=== PATIENT | female | born 1975 | race Caucasian/White ===

== ENCOUNTER → 2019-06-16 09:16 | Outpatient (BNVA) | payer BC, SELFPAY | PROVIDERS: Family Provider Family Medicine; PCP Family Medicine; Visit Provider Orthopaedic Surgery | DX: M85.88 Other specified disorders of bone density and structure, other site (principal) | CPT/HCPCS: 73560; 73565 ==

== ENCOUNTER 2019-07-12 13:18 | Outpatient (CLI) | payer BC, SELFPAY ==
--- NOTE | 2019-07-12 14:00 | MM_ITS ---
WS: [id number] SCREENING DIGITAL MAMMOGRAM WITH CAD HISTORY: screening mammogram COMPARISON: 07/07/2012 Bilateral CC and MLO views submitted. Computer aided detection analyzed. Breast composition: There are scattered areas of fibroglandular density. No suspicious masses, microc alcifications or architectural distortion. MM/[place] [id number] IMPRESSION: BI-RADS: 1-Negative FOLLOW UP: 1 Year Follow-up
== END 2019-07-12 13:19 | disposition home or self-care (01) ==
LOC: RADSHAW 13:21
PROVIDERS: Family Provider Family Medicine; PCP Family Medicine; Visit Provider Family Medicine
DX: Z12.31 Encounter for screening mammogram for malignant neoplasm of breast (principal)
CPT/HCPCS: 77067

== ENCOUNTER 2019-08-03 09:35 | Outpatient (CLI) | payer BC, SELFPAY ==
--- NOTE | 2019-08-03 09:44 | XR_ITS ---
WS: [id number] Lumbar spine, 3 views, 08/03/2019 Clinical Data: low back pain Comparison: Lumbar spine, 08/21/2015. Findings: No compression fractures or subluxation is seen. No disc space narrowing is seen. The transverse proc esses and SI joints are normal. Fallopian tube closure devices are present. There is minimal osteoarthritis and spurring of the anter ior superior margins of L4 and L5 vertebral bodies. XR/XR lumbar spine 2-3V* [id number] Impression: Minimal osteoarthritis of L4 and L5.
== END 2019-08-03 09:36 | disposition home or self-care (01) ==
LOC: RAD 09:38
PROVIDERS: Family Provider Family Medicine; PCP Family Medicine; Visit Provider Family Medicine
DX: M54.42 Lumbago with sciatica, left side (principal); M54.41 Lumbago with sciatica, right side; M47.896 Other spondylosis, lumbar region
CPT/HCPCS: 72100

== ENCOUNTER 2019-08-16 15:44 | Outpatient (RCR) | payer BC, SELFPAY | END 2019-08-24 23:59 | disposition home or self-care (01) | LOC: SPT 15:44 | PROVIDERS: Family Provider Family Medicine; PCP Family Medicine; Referring Provider Family Medicine; Visit Provider Family Medicine | DX: M54.42 Lumbago with sciatica, left side (principal); M54.41 Lumbago with sciatica, right side | CPT/HCPCS: 97110; 97161 ==

== ENCOUNTER 2019-08-25 06:00 | Outpatient (RCR) | payer BC, SELFPAY | END 2019-09-23 23:59 | disposition home or self-care (01) | LOC: SPT 06:00 | PROVIDERS: Family Provider Family Medicine; PCP Family Medicine; Referring Provider Family Medicine; Visit Provider Family Medicine | DX: M54.42 Lumbago with sciatica, left side (principal); M54.41 Lumbago with sciatica, right side | CPT/HCPCS: 97110; G0283 ==

== ENCOUNTER → 2019-10-21 08:27 | Outpatient (BNVA) | payer BC, SELFPAY | PROVIDERS: Family Provider Family Medicine; PCP Family Medicine; Visit Provider Family Medicine | DX: I10 Essential (primary) hypertension (principal); M54.42 Lumbago with sciatica, left side; M54.41 Lumbago with sciatica, right side; G25.81 Restless legs syndrome; F17.219 Nicotine dependence, cigarettes, with unspecified nicotine-induced disorders | CPT/HCPCS: 80053; 80061; 82044; 85025 ==

== ENCOUNTER → 2019-10-22 12:36 | Outpatient (BNVA) | payer BC, SELFPAY | PROVIDERS: Family Provider Family Medicine; PCP Family Medicine; Visit Provider Family Medicine | DX: I10 Essential (primary) hypertension (principal); M54.42 Lumbago with sciatica, left side; M54.41 Lumbago with sciatica, right side; G25.81 Restless legs syndrome; F17.219 Nicotine dependence, cigarettes, with unspecified nicotine-induced disorders; R73.09 Other abnormal glucose | CPT/HCPCS: 83036 ==

== ENCOUNTER 2019-11-07 22:35 | Emergency (ER) | payer BC, SELFPAY ==
[2019-11-07 22:58] VITALS: BP 130/78; PULSE 90; RESP 18; TEMP 35.8; O2SAT 97; BMI 45.4
[2019-11-07 23:41] LABS: Basophils # 0.1 10^3/uL (0.0-0.1); Basophils % 0.6 %; Eosinophils # 0.1 10^3/uL (0.0-0.8); Eosinophils % 1.1 %; Hematocrit 41.3 % (37.0-47.0); Hemoglobin 13.6 g/dL (11.5-15.3); Lymphocytes # 2.4 10^3/uL (0.8-4.8); Lymphocytes % 22.4 %; Mean Corpuscular HGB Conc 32.9 g/dL (30.0-36.0); Mean Corpuscular Hemoglobin 31.9 pg (28.0-34.0); Mean Corpuscular Volume 96.7 fL (81-99); Mean Platelet Volume 8.8 fL (7.4-10.4); Monocytes # 0.7 10^3/uL (0.2-0.9); Neutrophils # 7.5 10^3/uL (1.8-7.7); Neutrophils % 69.4 %; Nucleated Red Blood Cells % 0 %; Platelet Count 329 10^3/cmm (130-400); Red Blood Count 4.27 10^6/uL (4.1-5.3); Red Cell Distribution Width 12.6 % (12.1-15.1); White Blood Count 10.8 10^3/uL (4.0-10.0)
--- NOTE | 2019-11-07 23:55 | PC.NURSE ---
urine collected and sent to lab
[2019-11-07 23:58] LABS: Alanine Aminotransferase 20 U/L (0-33); Albumin Level 3.7 g/dL (3.5-5.2); Alkaline Phosphatase 79 IU/L (35-105); Anion Gap 14.8 (5-19); Aspartate Amino Transferase 16 U/L (0-32); Blood Urea Nitrogen 8 mg/dL (6-20); Calcium 9.1 mg/dL (8.5-10.5); Carbon Dioxide 23 mmol/L (22-29); Chloride 104 mmol/L (98-107); Globulin 3.2 g/dL (1.3-4.6); Glomerular Filtration Rate 78.7 mL/min (90-130); Glucose 109 mg/dL (65-115); Lipase 56 U/L (13-60); Osmolality Calculated 282 mOsm/kg (285-295); Potassium 3.8 mmol/L (3.5-5.1); Sodium 138 mmol/L (136-145); Total Bilirubin 0.2 mg/dL (0.15-1.2); Total Protein 6.9 g/dL (6.6-8.7)
--- NOTE | 2019-11-07 23:58 | W.ED.NAVMDI ---
HPI - Nausea/Vomiting/Diarrhea General: Chief complaint: Nausea/Vomiting/Diarrhea Stated complaint: sore throat/ n/v/d Time Seen by Provider: 11/07/19 23:19 History of Present Illness: HPI Narrative: Patient comes in with a 2-day history of of diarrhea with one episode of vomiting today. Patient appears mildly unwell. Patient appears in no acute distress. Vital signs are normal. Patient denies any blood in the stool or vomit. Associated nausea: Yes Associated symtoms: Reports nausea Review of Systems General: Reports: 10 or more systems reviewed and unremarkable except in HPI and below GI: Reports: nausea, vomiting and diarrhea [facility] [place] ED PFSH: Medical History (Updated 11/08/19 @ 00:21 by NICOLE Martínez) Acquired hypothyroidism Essential (primary) hypertension GERD (gastroesophageal reflux disease) Menopausal syndrome (hot flashes) Migraine without aura and with status migrainosus, not intractable Nicotine dependence, cigarettes, with unspecified nicotine-induced disorders Seizure disorder Surgical History H/O section H/O knee surgery History of placement of ear tubes Family History Father Diabetes Hypertension CAD (coronary artery disease) Grandfather CAD (coronary artery disease) Social History Smoking and tobacco status: current every day smoker cigarettes Packs smoked per day: 0.5 Alcohol intake: former Physical Exam Const: COMMON NORMALS: no acute distress and patient oriented x3 GENERAL APPEARANCE: cooperative HENMT: COMMON NORMALS: normocephalic and Normal external nose present HEAD & SCALP: normal to inspection and normocephalic NOSE: Normal external nose present MOUTH: Normal oral and palatal mucosa present THROAT: posterior oropharynx normal Eye: GENERAL EYE: appearance normal, both eyes and all related structures Neck/C-Spine: COMMON NORMALS: full ROM Lymph: LYMPHATIC: no lymphadenopathy noted Chest: COMMONS NORMALS: normal inspection of the chest Resp: COMMON NORMALS: normal respiratory effort EFFORT & INSPECTION: Yes able to speak in complete sentences Cardio: COMMON NORMALS: regular rate and regular rhythm RATE: regular rate RHYTHM: regular rhythm GI: COMMON NORMALS: non-tender : COMMON NORMALS: Yes no CVA tenderness BLADDER/KIDNEY EXAM: Yes no CVA tenderness Back/Pelvis: COMMON NORMALS: no CVA tenderness and thoracic and lumbar spine normal to inspection Extremity: COMMON NORMALS: normal to inspection Neuro: COMMON NORMALS: patient oriented x3 and moves all extremities Psych: COMMON NORMALS: mental status grossly normal and cooperative Skin: COMMON NORMALS: no rashes or lesions noted GENERAL SKIN EXAM: no rashes or lesions noted Course Vital Signs: Vital signs: Vital Signs Temperature 96.4 F L 11/07/19 22:58 Pulse Rate 90 11/07/19 22:58 Respiratory Rate 18 11/07/19 22:58 Blood Pressure 130/78 11/07/19 22:58 Pulse Oximetry 97 11/07/19 22:58 MDM - Nausea/Vomiting/Diarrhea MDM Narrative: Medical decision making narrative: Patient presents with diarrhea stools for 2 days. Patient is also had an episode of nausea and vomiting this morning. Patient appears well. Patient appears in no pain. Abdomen soft nontender. Posterior pharynx is pink and moist. Vital signs are normal. Differential diagnosis includes gastroenteritis, cholecystitis, pancreatitis, urinary tract infection. Laboratory values noted a white blood cell count 10,000, normal liver enzymes, normal lipase, urinalysis was clear. Reviewed exam with patient recommended treatment for gastroenteritis. Recommend the patient follow-up with primary care for persistent symptoms. Patient should return to the ER for worsening symptoms. Patient reported understanding and agreed to plan. Lab Data: Labs: Lab Results 11/07/19 11/07/19 11/07/19 Range/Units 23:37 23:37 23:37 WBC 10.8 H (4.0-10.0) 10^3/ uL RBC 4.27 (4.1-5.3) 10^6/u L Hgb 13.6 (11.5-15.3) g/dL Hct 41.3 (37.0-47.0) % MCV 96.7 (81-99) fL MCH 31.9 (28.0-34.0) pg MCHC 32.9 (30.0-36.0) g/dL RDW 12.6 (12.1-15.1) % Plt Count 329 (130-400) 10^3/c mm MPV 8.8 (7.4-10.4) fL Neut % (Auto) 69.4 % Lymph % (Auto) 22.4 % [place] % (Auto) 6.0 % Eos % (Auto) 1.1 % Baso % (Auto) 0.6 % Neut # (Auto) 7.5 (1.8-7.7) 10^3/u L Lymph # (Auto) 2.4 (0.8-4.8) 10^3/u L [place] # (Auto) 0.7 (0.2-0.9) 10^3/u L Eos # (Auto) 0.1 (0.0-0.8) 10^3/u L Baso # (Auto) 0.1 (0.0-0.1) 10^3/u L Nucleated RBC % (a uto) 0 % Nucleated RBCs # 0.0 /100WBC Sodium 138 (136-145) mmol/L Potassium 3.8 (3.5-5.1) mmol/L Chloride 104 (98-107) mmol/L Carbon Dioxide 23 (22-29) mmol/L Anion Gap 14.8 (5-19) BUN 8 (6-20) mg/dL Creatinine 0.8 (0.5-0.9) mg/dL GFR Calculation 78.7 L (90-130) mL/min Glucose 109 (65-115) mg/dL Calculated Osmolal ity 282 L (285-295) mOsm/k g Calcium 9.1 (8.5-10.5) mg/dL Total Bilirubin 0.2 (0.15-1.2) mg/dL AST 16 (0-32) U/L ALT 20 (0-33) U/L Alkaline Phosphata se 79 (35-105) IU/L Total Protein 6.9 (6.6-8.7) g/dL Albumin 3.7 (3.5-5.2) g/dL Globulin 3.2 (1.3-4.6) g/dL Lipase 56 (13-60) U/L HCG, Qual Negative (Negative) Urine Color (Yellow) Urine Appearance (CLEAR) Urine pH (5-7) Ur Specific Gravit y (1.005-1.030) Urine Protein (Negative) Urine Glucose (UA) (Normal) Urine Ketones (Negative) Urine Blood (Negative) Urine Nitrate (Negative) Urine Bilirubin (NEGATIVE) Urine Urobilinogen (Negative) mg/dL Ur Leukocyte Mary ase (Negative) Urine RBC (0-2) /hpf Urine WBC (0-5) /hpf Ur Squamous Epith Cells (0-5) Urine Bacteria (NONE) Urine Mucus 11/07/19 Range/Units 23:48 WBC (4.0-10.0) 10^3/ uL RBC (4.1-5.3) 10^6/u L Hgb (11.5-15.3) g/dL Hct (37.0-47.0) % MCV (81-99) fL MCH (28.0-34.0) pg MCHC (30.0-36.0) g/dL RDW (12.1-15.1) % Plt Count (130-400) 10^3/c mm MPV (7.4-10.4) fL Neut % (Auto) % Lymph % (Auto) % [place] % (Auto) % Eos % (Auto) % Baso % (Auto) % Neut # (Auto) (1.8-7.7) 10^3/u L Lymph # (Auto) (0.8-4.8) 10^3/u L [place] # (Auto) (0.2-0.9) 10^3/u L Eos # (Auto) (0.0-0.8) 10^3/u L Baso # (Auto) (0.0-0.1) 10^3/u L Nucleated RBC % (a uto) % Nucleated RBCs # /100WBC Sodium (136-145) mmol/L Potassium (3.5-5.1) mmol/L Chloride (98-107) mmol/L Carbon Dioxide (22-29) mmol/L Anion Gap (5-19) BUN (6-20) mg/dL Creatinine (0.5-0.9) mg/dL GFR Calculation (90-130) mL/min Glucose (65-115) mg/dL Calculated Osmolal ity (285-295) mOsm/k g Calcium (8.5-10.5) mg/dL Total Bilirubin (0.15-1.2) mg/dL AST (0-32) U/L ALT (0-33) U/L Alkaline Phosphata se (35-105) IU/L Total Protein (6.6-8.7) g/dL Albumin (3.5-5.2) g/dL Globulin (1.3-4.6) g/dL Lipase (13-60) U/L HCG, Qual (Negative) Urine Color Yellow (Yellow) Urine Appearance Sl hazy (CLEAR) Urine pH 6 (5-7) Ur Specific Gravit y 1.020 (1.005-1.030) Urine Protein Neg (Negative) Urine Glucose (UA) Norm (Normal) Urine Ketones Negative (Negative) Urine Blood 3+ H (Negative) Urine Nitrate Negative (Negative) Urine Bilirubin Neg (NEGATIVE) Urine Urobilinogen 1 H (Negative) mg/dL Ur Leukocyte Mary ase Negative (Negative) Urine RBC 5-10 H (0-2) /hpf Urine WBC 0-4 H (0-5) /hpf Ur Squamous Epith Cells 15-25 H (0-5) Urine Bacteria 1+ H (NONE) Urine Mucus 1+ Discharge Plan Discharge Patient Disposition: Home, Self-Care Clinical Impression: Gastroenteritis Condition: Stable Prescriptions: New ondansetron HCl 4 mg tablet 4 mg PO Q8H PRN (Reason: nausea and vomiting) Qty: 10 RF: 0 loperamide 2 mg capsule 2 mg PO Q4H PRN (Reason: loose stool) Qty: 14 RF: 0 No Action rizatriptan [Maxalt] 10 mg tablet 10 mg PO ONCE RF: 0 lisinopril 10 mg tablet 10 mg PO DAILY Qty: 30 RF: 0 zinc 50 mg tablet 100 mg PO ONCE RF: 0 diphenhydramine HCl [Benadryl] 25 mg capsule 25 mg PO ONCE PRNRF: 0 venlafaxine [Effexor XR] 37.5 mg capsule,extended release 24hr 37.5 mg PO QDAY Qty: 30 RF: 2 ropinirole 1 mg tablet 1 mg PO BID Qty: 60 RF: 2 atorvastatin 10 mg tablet 10 mg PO .at bedtime Qty: 30 RF: 0 Discharge Orders: Discharge Order (Routine); Ordered 11/08/19 Ordered By: Rogelio Chan Referrals: Radha Ruiz DO [Primary Care Provider] - Discharge Diet: Usual diet Discharge Activity: Increase activity as tolerated Patient Instructions: Gastroenteritis (ED) Activity Restrictions/Additional Instructions: Drink plenty of fluids. Eat a bland diet such as bananas, rice, apples, toast, and boiled chicken. Increase diet as tolerated. Take medications as needed for nausea vomiting and diarrhea. Return to the ER for worsening symptoms such as high fever or blood in vomit or stool. Follow-up with primary care as needed. 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
[2019-11-08 00:04] LABS: Add Urine Microscopic? YES; Bilirubin Urine Neg (NEGATIVE); Blood Urine 3+ (Negative); Glucose Urine UA Norm (Normal); Ketones Urine Negative (Negative); Leukocyte Esterase Urine Negative (Negative); Nitrate Urine Negative (Negative); Protein Urine Neg (Negative); Urine Appearance SL Hazy (CLEAR); Urine Color Yellow (Yellow); Urobilinogen Urine 1 mg/dL (Negative); pH Urine 6 (5-7)
[2019-11-08 00:05] LABS: HCG, Serum Qual Negative (Negative)
[2019-11-08 00:06] LABS: WBC Urine 0-4 /hpf (0-5)
[2019-11-08 00:07] LABS: Add Urine Culture? No; Bacteria Urine 1+; Mucus Urine 1+; Squamous Epithelial Cell Urine 15-25 (0-5)
--- NOTE | 2019-11-08 00:41 | PC.NURSE ---
i agree with this assessment
[2019-11-08 00:44] VITALS: BP 126/72; PULSE 79; RESP 18; O2SAT 97
== END 2019-11-08 00:48 | disposition home or self-care (01) ==
PROVIDERS: Emergency Provider Nurse Practitioner Family; PCP Family Medicine
DX: K52.9 Noninfective gastroenteritis and colitis, unspecified (principal); I10 Essential (primary) hypertension; F17.210 Nicotine dependence, cigarettes, uncomplicated
CPT/HCPCS: 12345; 80053; 81001; 83690; 84703; 85025; 99282

== ENCOUNTER → 2019-11-22 08:46 | Outpatient (BNVA) | payer BC, SELFPAY | PROVIDERS: PCP Family Medicine; Visit Provider Family Medicine | DX: E78.2 Mixed hyperlipidemia (principal); I10 Essential (primary) hypertension; F17.219 Nicotine dependence, cigarettes, with unspecified nicotine-induced disorders | CPT/HCPCS: 80053 ==

== ENCOUNTER 2019-12-27 12:43 | Outpatient (CLI) | payer BC, SELFPAY ==
--- NOTE | 2019-12-27 13:00 | MR_ITS ---
WS: [id number] MRI LUMBAR SPINE NONCONTRAST HISTORY: M54.42 Lumbago with sciatica, left side COMPARISON: None available. TECHNIQUE: Sagittal and axial multisequence imaging is submitted. Mild straightening of the normal lumbar lordosis. No marrow edema or fracture. Disc spaces and vertebral body heights are well-preserved. Conus terminates normally at L1-2 disc level. L1-L2: Normal. L2-L3: Mild facet and ligamentum flavum hypertrophy. L3-L4: Mild facet and ligamentum flavum hypertrophy. No significant stenosis. L4-L5: Mild facet joint arthropathy. Small amount of fluid in the facet joints. There is very mild en croachment upon the thecal sac and narrowing. No significant stenosis. L5-S1: No stenosis or herniations. Paravertebral soft tissues are normal. MR/MR lumbar spine wo con* [id number] IMPRESSION: 1. No significant central or foraminal stenosis or disc herniations. 2. Mild multilevel facet joint arthropathy is most significant at L4-5. Minima l encroachment upon the thecal sac with no significant stenosis.
== END 2019-12-27 12:44 | disposition home or self-care (01) ==
LOC: RADSHAW 12:48
PROVIDERS: PCP Family Medicine; Visit Provider Family Medicine
DX: M54.42 Lumbago with sciatica, left side (principal); M47.896 Other spondylosis, lumbar region
CPT/HCPCS: 72148

== ENCOUNTER 2019-12-28 15:41 | Outpatient (CLI) | payer BC, SELFPAY ==
--- NOTE | 2019-12-28 16:00 | MR_ITS ---
WS: [id number] MRI LEFT KNEE HISTORY: M25.562 Pain in left knee COMPARISON: 05/07/2016, multiple prior knee radiographs. Anterior cruciate ligament: Increased signal thickening of the ACL. Fibers are normally oriented. Posterior cruciate ligament: Intact. Posterior to the PCL is an ovoid fluid collection which is proba demarcus a ganglion. Medial collateral ligament: Intact. Posterior lateral corner structures: Intact. Medial menisci: Intact. Normal signal, size and shape. Lateral meniscus: Mild progressive intrasubstance degeneration in the menisci. No definite full-thick ness tears are identified. Extensor mechanism: Distal quadriceps tendon is normal. Multifocal patellar tendinopathy. Fluid and soft tissue: Small suprapatellar joint effusion. No Iglesias's cyst. Osseous and articular structures: Patellofemoral compartment: Normal. Medial compartment: Mild narrowing medial compartment. Small amount of edema along the medial tibial plateau has progressed since the prior examination. Shallow cartilage defect along the weightbearing surface of the femoral condyle. Lateral compartment: Mild thinning of the cartilage in the lateral compartment. No full-thickness def ects. There is a large area of increasing T2 signal involving the distal femur along the metaphysis. There is a rounded nodule measuring 5 mm surrounded by a hypointense rim. By history patient's undergone pr ior surgical procedure these may be postoperative changes. The area of increased T2 signal correspond s to sclerosis on the radiographs which is been present on prior studies. The focal rounded areas may be subchondral cystic changes related to the prior procedure. These are at the superior aspect of th e intercondylar notch. No loose body identified. MR/MR knee LT wo con* [id number] IMPRESSION: 1. Progressive mucoid degeneration of the ACL. 2. Increasing degenerative changes meniscus and the lateral compartment but no definite full-thickness defects. 3. Progressive edema and subchondral cystic changes in the distal femur. Corre sponds to the area of sclerosis seen radiographically which is been stable over multiple years. No loose bodies are identified. 4. Small suprapatellar effusion. 5. Suspect ganglion associated with the PCL.
== END 2019-12-28 15:42 | disposition home or self-care (01) ==
LOC: RADSHAW 15:46
PROVIDERS: PCP Family Medicine; Visit Provider Orthopaedic Surgery
DX: M25.562 Pain in left knee (principal); G89.29 Other chronic pain; M17.12 Unilateral primary osteoarthritis, left knee; M25.462 Effusion, left knee; R60.0 Localized edema
CPT/HCPCS: 73721

== ENCOUNTER → 2020-01-13 12:49 | Outpatient (BNVA) | payer BC, SELFPAY | PROVIDERS: PCP Family Medicine; Referring Provider Family Medicine; Visit Provider Anesthesiology Pain Medicine | DX: G89.29 Other chronic pain (principal); M54.41 Lumbago with sciatica, right side; M54.42 Lumbago with sciatica, left side; M47.816 Spondylosis without myelopathy or radiculopathy, lumbar region; M25.562 Pain in left knee; G43.001 Migraine without aura, not intractable, with status migrainosus; F17.219 Nicotine dependence, cigarettes, with unspecified nicotine-induced disorders | CPT/HCPCS: 99205 ==

== ENCOUNTER → 2020-01-21 13:27 | Outpatient (BNVA) | payer BC, SELFPAY | PROVIDERS: PCP Family Medicine; Visit Provider Anesthesiology Pain Medicine | DX: M47.816 Spondylosis without myelopathy or radiculopathy, lumbar region (principal); M54.42 Lumbago with sciatica, left side; M54.41 Lumbago with sciatica, right side | CPT/HCPCS: 64493; 64494; 64495; J3490 ==

== ENCOUNTER → 2020-02-03 13:21 | Outpatient (BNVA) | payer BC, SELFPAY | PROVIDERS: PCP Family Medicine; Visit Provider Anesthesiology Pain Medicine | DX: G89.29 Other chronic pain (principal); M54.42 Lumbago with sciatica, left side; M54.41 Lumbago with sciatica, right side; M47.816 Spondylosis without myelopathy or radiculopathy, lumbar region; F17.219 Nicotine dependence, cigarettes, with unspecified nicotine-induced disorders; M25.562 Pain in left knee; G43.001 Migraine without aura, not intractable, with status migrainosus; E78.2 Mixed hyperlipidemia; I10 Essential (primary) hypertension; F41.1 Generalized anxiety disorder; Z68.41 Body mass index [BMI] 40.0-44.9, adult; Z71.6 Tobacco abuse counseling; Z71.89 Other specified counseling | CPT/HCPCS: 80053; 80061; 99213; 99215 ==

== ENCOUNTER 2020-05-24 14:15 | Emergency (ER) | payer OTHER, SELFPAY ==
[2020-05-24 14:36] VITALS: BP 111/70; PULSE 114; RESP 18; TEMP 36.2; O2SAT 98; BMI 45.1
--- NOTE | 2020-05-24 15:25 | ED_ITS ---
HPI - COVID General: Chief Complaint: COVID symptoms Stated Complaint: covid symptoms/fever Time Seen by Provider: 05/24/20 15:16 Triage information: Has fever, cough or shortness of breath . No known COVID + exposure last 14 days History of Present Illness: HPI Narrative: Pleasant 44-year-old female patient presents to the emergency department with 3 to 4-day history of cough and congestion. Reports is productive but does not like it sputum. She reports shortness of breath and tightness in her chest, denies chest pain denies wheezing. She states is a smoker, cigarettes. Reports onset of nausea x4 to 5 days with vomiting that started today. 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 She was states appetite is lousy, denies losing her sense of smell or taste. Reports low-grade temp of 99.7 but continues to take ibuprofen and Tylenol. MD complaint: has COVID symptoms Prior covid testing: yes, results known Prior testing date: 05/17/20 COVID 19 common symptoms: positive fever(s), chills, cough, productive cough, dyspnea, fatigue, body aches, nasal congestion, nausea and vomiting; negative headache(s), throat pain or diarrhea COVID 19 other sytmptoms: negative chest pain Onset (ago): day(s) (4-5) Severity: moderate and slowly worsening Pertinent comorbid conditions: hypertension Treatment prior to arrival: acetaminophen and ibuprofen COVID Results: SARS-CoV-2 Antigen (Rapid) Negative (Negative) 05/24/20 15:34 05/24/20 Review of Systems General: Reports: 10 or more systems reviewed and unremarkable except in HPI and below Const: Reports: fever(s), chills, body aches, change in appetite, fatigue and malaise Eyes: Denies: blurry vision or eye redness ENMT: Reports: nasal discharge and nasal congestion; Denies: throat pain, odynophagia, dry mouth or ear or mastoid pain Card: Denies: chest pain, palpitations, irregular heart rhythm, swelling of feet/ankles or dyspnea on exertion Resp: Reports: dyspnea, productive cough and chest congestion; Denies: wheezing, pain on inspiration or hemoptysis GI: Reports: nausea and vomiting; Denies: abdominal pain, heartburn, diarrhea, constipation, bloating or belching : Denies: difficulty voiding or dysuria Musc: Denies: neck pain, back pain, joint pain, joint warmth or joint stiffness Skin/Breast: Denies: rash, pruritus, skin tenderness or changes in skin color Neuro: Denies: headache(s), weakness in extremities or behavioral changes Psych: Denies: anxiety or depression Santiago/Lymph: Denies: easy bruising PFSH ED PFSH: Medical History (Updated 05/24/20 @ 17:15 by RICO Alford) Acquired hypothyroidism Essential (primary) hypertension GERD (gastroesophageal reflux disease) Menopausal syndrome (hot flashes) Migraine without aura and with status migrainosus, not intractable Nicotine dependence, cigarettes, with unspecified nicotine-induced disorders Seizure disorder Surgical History H/O section H/O knee surgery History of placement of ear tubes Family History Father Diabetes Hypertension CAD (coronary artery disease) Grandfather CAD (coronary artery disease) Social History Smoking and tobacco status: current every day smoker cigarettes Packs smoked per day: 0.5 Alcohol intake: former Physical Exam Const: COMMON NORMALS: no acute distress, patient oriented x3, healthy appearing and alert GENERAL APPEARANCE: cooperative, comfortable and well hydrated HENMT: COMMON NORMALS: normocephalic, atraumatic, EAC's normal, TM's normal bilaterally, Normal external nose present and moist oral mucous membranes HEAD & SCALP: normal to inspection, normocephalic and atraumatic FACE & SINUS: normal facial exam and face symmetric NOSE: Normal external nose present EXTERNAL AUDITORY CANAL: EAC's normal TYMPANIC MEMBRANE: TM's normal bilaterally MOUTH: Normal oral and palatal mucosa present THROAT: posterior oropharynx normal and uvula midline Eye: COMMON NORMALS: Equal, round and reactive pupils present, EOMs intact bilaterally and conjunctivae normal GENERAL EYE: appearance normal, both eyes and all related structures CONJUNCTIVA: Yes conjunctivae normal PUPIL: Yes Equal, round and reactive pupils present Neck/C-Spine: COMMON NORMALS: full ROM and no lymphadenopathy GENERAL: Yes normal visual inspection and Yes trachea midline CERVICAL SPINE: Yes cervical ROM normal Lymph: LYMPHATIC: no lymphadenopathy noted Chest: COMMONS NORMALS: normal inspection of the chest and normal palpation of entire chest wall Resp: COMMON NORMALS: normal respiratory effort, No retractions, No use of accessory muscles and clear to auscultation bilaterally EFFORT & INSPECTION: Yes able to speak in complete sentences, Yes symmetric chest movement, No labored and No audible wheezes AUSCULTATION: clear to auscultation bilaterally Cardio: COMMON NORMALS: regular rhythm, S1 normal heart sound present, S2 normal heart sound present and Peripheral pulses 2+ throughout RHYTHM: regular rhythm HEART SOUNDS: S1 normal heart sound present and S2 normal heart sound present PERIPHERAL PULSES: Peripheral pulses 2+ throughout GI: COMMON NORMALS: Normal to inspection, nondistended, normoactive bowel sounds present, Soft to palpation and non-tender INSPECTION: Yes normal to inspection, No abdominal distension, Yes central obesity and No visible herniation PALPATION: Yes Soft to palpation and No Firmness to palpation present (GI) : COMMON NORMALS: Yes no CVA tenderness BLADDER/KIDNEY EXAM: Yes no CVA tenderness Back/Pelvis: COMMON NORMALS: no CVA tenderness and thoracic and lumbar spine normal to inspection Extremity: COMMON NORMALS: normal to inspection and capillary refill normal Neuro: COMMON NORMALS: patient oriented x3 and no focal motor deficits SENSORIUM/ORIENTATION: Yes alert Psych: COMMON NORMALS: mental status grossly normal, Normal thought process present and cooperative ACTIVITY/MOTOR BEHAVIOR: Yes appropriate eye contact THOUGHT PROCESS: Normal thought process present Skin: COMMON NORMALS: no rashes or lesions noted and turgor normal GENERAL SKIN EXAM: no rashes or lesions noted and turgor normal Course ED course: 44-year-old female patient presents to the emergency department with Covid symptoms. Covid test was negative here in the ED. She was able to tolerate p.o. fluids with use of Zofran. Prescription of Zofran, albuterol for bronchitis and Tessalon Perles provided, advised to follow-up with her primary care if symptoms continue. Advised to return to the emergency department if she develop worsening symptoms, verbalized understanding. No work was provided. Vital Signs: Vital signs: Vital Signs Temperature 98.9 F 05/24/20 17: Pulse Rate 95 05/24/20 17:28 Respiratory Rate 18 05/24/20 17:28 Blood Pressure 110/82 05/24/20 17:28 Pulse Oximetry 95 05/24/20 17:28 MDM - COVID Lab Data: Labs: Lab Results 05/24/20 05/24/20 Range/Units 15:34 15:34 Influenza Type A A g Negative (Negative) Influenza Type B A g Negative (Negative) SARS-CoV-2 Ag (Rap id) Negative (Negative) Imaging Data: CXR: Radiologist's impression: [address] [address] XRay Report Signed Patient: Radha Boyer Unit #: [id number] : 1975 Age/Sex: 44 / F ADM Date: 05/24/20 Loc: ER Room/Bed: Attending Dr: Ordering Provider/Ordering MD: Adrianne Lorenzo Date of Service: 05/24/20 Procedure(s): XR chest 1V portable [id number] Accession Number(s): [id number] Report Number: [id number] WS: [id number] Exam: XR chest 1V portable [id number] Date/Time of Exam: 05/24/2020 3:44 PM Reason For Exam: cough/congestion Comparison 01/21/2019. Findings: The lungs are clear and fully expanded. Costophrenic angles are sharp. No infiltrates. Bronchovascular relief appears normal. Cardiac silhouette is unremarkable. Bony elements are intact. XR/XR chest 1V portable [id number] IMPRESSION: Unremarkable chest radiograph. Dictated By: Carlos Eid DO Signed By: Carlos Eid DO Signed Date/Time: 05/24/20 1554 DD/ 1553 COVID Results: SARS-CoV-2 Antigen (Rapid) Negative (Negative) 05/24/20 15:34 05/24/20 Discharge Plan Discharge Patient Disposition: Home Clinical Impression: Acute bronchitis Qualifiers: Bronchitis organism: other organism Qualified Code(s): J20.8 - Acute bronchitis due to other specified organisms Gastritis Qualifiers: Gastritis type: unspecified gastritis Chronicity: acute Gastritis bleeding: without bleeding Qualified Code(s): K29.00 - Acute gastritis without bleeding Condition: Stable Prescriptions: New Zofran 4 mg tablet 4 mg PO Q4H 5 Days Qty: 14 RF: 0 Ventolin HFA 90 mcg/actuation HFA aerosol inhaler 2 puff INHALATION Q4H PRN (Reason: shortness of breath or wheezing) Qty: 18 RF: 0 benzonatate 200 mg capsule 200 mg PO TID PRN (Reason: cough) Qty: 20 RF: 0 No Action venlafaxine 75 mg capsule,extended release 24hr 75 mg PO DAILY@0800 RF: 0 ropinirole 1 mg tablet 1 mg PO BID@0800,2100 RF: 0 Maxalt 10 mg tablet See Rx Instructions .ROUTE .COMPLEX PRN (Reason: Migraine Headache) RF: 0 chlorthalidone 25 mg tablet 25 mg PO DAILY@0800 RF: 0 simvastatin 20 mg tablet 20 mg PO BEDTIME@2100 RF: 0 lisinopril 10 mg tablet 10 mg PO DAILY@0800 RF: 0 Discharge Orders: Discharge ED (Routine); Ordered 05/24/20 Ordered By: Adrianne Lorenzo Referrals: Radha Ruiz DO [Primary Care Provider] - Discharge Diet: Advance as tolerated and Clear Liquid Discharge Activity: Limit activity as instructed Patient Instructions: Gastritis (ED), Acute Nausea and Vomiting (ED) Activity Restrictions/Additional Instructions: push fluids, drink plenty of fluids return to the ED if you experience vomiting despite use of Zofran Follow up with your primary care provider in 2-3 days if not improved no work today or tomorrow Ibuprofen/Tylenol as needed for pain/fever - take as directed on bottle Stand Alone Forms: Work/School Release Coding 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
--- NOTE | 2020-05-24 15:25 | XR_ITS ---
WS: [id number] Exam: XR chest 1V portable [id number] Date/Time of Exam: 05/24/2020 3:44 PM Reason For Exam: cough/congestion Comparison 01/21/2019. Findings: The lungs are clear and fully expanded. Costophrenic angles are sharp. No infiltrates. Bronchovascula r relief appears normal. Cardiac silhouette is unremarkable. Bony elements are intact. XR/XR chest 1V portable [id number] IMPRESSION: Unremarkable chest radiograph.
[2020-05-24 15:34] VITALS: BP 100/68; PULSE 102; RESP 20; O2SAT 96
[2020-05-24] MEDS: ondansetron 4 MG Tablet PO (15:40)
[2020-05-24 16:12] LABS: Influenza A by IFA Negative (Negative); Influenza B by IFA Negative (Negative); SARS Covid-2 Antigen Negative (Negative)
[2020-05-24 16:30] VITALS: BP 112/78; PULSE 94; RESP 20; O2SAT 97
[2020-05-24 17:18] VITALS: BP 110/82; PULSE 103; RESP 20; O2SAT 98
[2020-05-24 17:28] VITALS: BP 110/82; PULSE 95; RESP 18; TEMP 37.2; O2SAT 95
== END 2020-05-24 17:32 | disposition home or self-care (01) ==
PROVIDERS: Emergency Provider Nurse Practitioner Family; PCP Family Medicine
DX: J20.8 Acute bronchitis due to other specified organisms (principal); K29.00 Acute gastritis without bleeding; I10 Essential (primary) hypertension; F17.210 Nicotine dependence, cigarettes, uncomplicated
CPT/HCPCS: 12345; 71045; 87426; 87804; 99282; 99283; Q0162

== ENCOUNTER → 2020-12-19 07:41 | Outpatient (BNVA) | payer BC, SELFPAY | PROVIDERS: PCP Family Medicine; Visit Provider Family Medicine | DX: E78.2 Mixed hyperlipidemia (principal); R73.03 Prediabetes | CPT/HCPCS: 80053; 80061; 83036 ==

== ENCOUNTER 2021-03-13 23:19 | Emergency (ER) | payer BC, SELFPAY ==
[2021-03-13 23:31] VITALS: BP 118/75; PULSE 96; RESP 18; TEMP 36.5; O2SAT 99; BMI 44.7
--- NOTE | 2021-03-13 23:40 | XRR_ITS ---
PROCEDURE INFORMATION: Exam: XR Chest Exam date and time: 03/13/2021 11:40 PM Age: 45 years old Clinical indication: Cough and shortness of breath; Patient HX: Cough with SOB. ; Additional info: SOA TECHNIQUE: Imaging protocol: XR of the chest. Views: 2 views. COMPARISON: CR XR chest 1V portable [id number] 05/24/2020 3:43 PM FINDINGS: Lungs: Right hilar to lower lobe atelectasis versus minimal infiltrate. Pleural spaces: Unremarkable. No pleural effusion. No pneumothorax. Heart/Mediastinum: Unremarkable. No cardiomegaly. Bones/joints: Unremarkable. XR/XR chest 2V* [id number] IMPRESSION: Right hilar to lower lobe atelectasis versus minimal infiltrate. Radiation Dose CTDIVOL = (mGy): DLP = (mGy-cm)
[2021-03-14 00:04] LABS: Basophils # 0.1 10^3/uL (0.0-0.1); Basophils % 0.6 %; Eosinophils # 0.1 10^3/uL (0.0-0.8); Eosinophils % 0.8 %; Hematocrit 45.9 % (37.0-47.0); Hemoglobin 15.1 g/dL (11.5-15.3); Lymphocytes # 1.9 10^3/uL (0.8-4.8); Lymphocytes % 15.5 %; Mean Corpuscular HGB Conc 32.9 g/dL (30.0-36.0); Mean Corpuscular Hemoglobin 30.3 pg (28.0-34.0); Mean Corpuscular Volume 92.2 fl (81-99); Mean Platelet Volume 8.9 fL (7.4-10.4); Monocytes # 0.6 10^3/uL (0.2-0.9); Monocytes % 4.7 %; Nucleated Red Blood Cells % 0 %; Platelet Count 384 10^3/cmm (130-400); Red Blood Count 4.98 10^6/uL (4.1-5.3); Red Cell Distribution Width 13.4 % (12.1-15.1); White Blood Count 12.4 10^3/uL (4.0-10.0)
[2021-03-14 00:21] LABS: Alanine Aminotransferase 17 U/L (0-33); Albumin Level 3.8 g/dL (3.5-5.2); Alkaline Phosphatase 89 IU/L (35-105); Anion Gap 18.5 (5-19); Aspartate Amino Transferase 16 U/L (0-32); Blood Urea Nitrogen 22 mg/dL (6-20); Calcium 9.5 mg/dL (8.5-10.5); Carbon Dioxide 23 mmol/L (22-29); Chloride 97 mmol/L (98-107); Globulin 3.9 g/dL (1.3-4.6); Glomerular Filtration Rate 27.2 mL/min (90-130); Glucose 131 mg/dL (65-115); Osmolality Calculated 285 mOsm/kg (285-295); Potassium 3.5 mmol/L (3.5-5.1); Sodium 135 mmol/L (136-145); Total Bilirubin 0.2 mg/dL (0.15-1.2); Total Protein 7.7 g/dL (6.6-8.7)
[2021-03-14 00:28] LABS: Influenza A by IFA Negative (Negative); Influenza B by IFA Negative (Negative)
--- NOTE | 2021-03-14 02:15 | ED_ITS ---
Documented by User: REUBEN Cuello 03/17/21 07:05 HPI - General Adult General: Chief complaint: General Medical Stated complaint: n/v/d, abd pain,dizziness Time Seen by Provider: 03/14/21 01:56 Source: patient Mode of arrival: ambulatory Limitations: no limitations History of Present Illness: HPI narrative: Patient is a 45-year-old female who presents to ED today with a complaint of generally not feeling well. She states about 2 weeks ago she began having body aches and describes them as deep severe muscle pains . She has not noticed any muscle cramping or spasming. She states following that she began developing a nonproductive cough and some mild shortness of breath. She states a few days ago she began developing nausea with approximately 3 episodes of nonbloody, nonbilious emesis daily. Yesterday she began having diarrhea and has had a total of 3 nonbloody episodes. She does not complain of much abdominal discomfort. No urinary symptoms but does report a history of UTIs. No fevers. No headache/neck pain/back pain. Onset (ago): day(s) Relieving factors: none Exacerbating factors: none Associated symptoms: Reports dyspnea, nausea and vomiting; Deny chest pain, headache(s), malaise, rash, palpitations or syncope Review of Systems Const: Reports: body aches; Denies: fever(s), chills, change in appetite, change in weight, fatigue or malaise Eyes: Denies: change in vision ENMT: Denies: throat pain, odynophagia, nasal discharge or nasal congestion Card: Denies: chest pain, palpitations, irregular heart rhythm, edema, swelling of feet/ankles, lightheadedness, syncope or pre-syncope Resp: Reports: dyspnea and non-productive cough; Denies: wheezing, pain on inspiration, change in phlegm color, hemoptysis or chest congestion GI: Reports: nausea, vomiting and diarrhea; Denies: abdominal pain, hematemesis, heartburn, hematochezia or melena : Denies: flank pain, difficulty voiding, dysuria, urinary frequency or urinary urgency Musc: Denies: neck pain, back pain, extremity pain or joint pain Skin/Breast: Denies: rash Neuro: Denies: headache(s), numbness in extremities, weakness in extremities, sensory changes or dizziness PFSH ED PFS: Medical History (Updated 03/14/21 @ 02:57 by REUBEN Cuello) Acquired hypothyroidism Essential (primary) hypertension GERD (gastroesophageal reflux disease) Menopausal syndrome (hot flashes) Migraine without aura and with status migrainosus, not intractable Nicotine dependence, cigarettes, with unspecified nicotine-induced disorders Seizure disorder Surgical History H/O section H/O knee surgery History of placement of ear tubes Family History Father Diabetes Hypertension CAD (coronary artery disease) Grandfather CAD (coronary artery disease) Social History Smoking and tobacco status: never smoked Alcohol intake: former Physical Exam Const: COMMON NORMALS: no acute distress, patient oriented x3, no limitations and alert GENERAL APPEARANCE: cooperative NUTRITIONAL APPEARANCE: obese morbidly obese ORIENTATION/CONSCIOUSNESS: Yes awake, Yes oriented to person, Yes oriented to place and Yes oriented to time HENMT: COMMON NORMALS: normocephalic and atraumatic HEAD & SCALP: normal to inspection, normocephalic and atraumatic Neck/C-Spine: COMMON NORMALS: full ROM, no lymphadenopathy and no meningeal signs Resp: COMMON NORMALS: normal respiratory effort and clear to auscultation bilaterally AUSCULTATION: clear to auscultation bilaterally Cardio: COMMON NORMALS: regular rate and regular rhythm RATE: regular rate RHYTHM: regular rhythm GI: COMMON NORMALS: Normal to inspection, nondistended, normoactive bowel sounds present, Soft to palpation and non-tender INSPECTION: Yes normal to inspection PALPATION: Yes Soft to palpation OTHER: limited secondary to morbid obesity : COMMON NORMALS: Yes no CVA tenderness BLADDER/KIDNEY EXAM: Yes no CVA tenderness Back/Pelvis: COMMON NORMALS: no CVA tenderness Extremity: COMMON NORMALS: normal to inspection, no calf tenderness and no pedal edema Neuro: HAYDER COMA SCALE: document GCS findings [place] coma scale eye opening: Spontaneous [place] coma scale verbal response: Orientated Hayder coma scale motor response: Obey commands [place] coma scale total score: 15 COMMON NORMALS: patient oriented x3 SENSORIUM/ORIENTATION: Yes alert, Yes oriented to person, Yes oriented to place and Yes oriented to time MENINGEAL SIGNS: Yes no meningeal signs Skin: COMMON NORMALS: no rashes or lesions noted GENERAL SKIN EXAM: no rashes or lesions noted Course Vital Signs: Vital signs: Vital Signs Temperature 97.7 F 03/13/21 23:31 Pulse Rate 70 03/14/21 02:38 Respiratory Rate 18 03/14/21 02:38 Blood Pressure 110/70 03/14/21 02:38 Pulse Oximetry 98 03/14/21 02:38 MDM - General Adult MDM Narrative: Medical decision making narrative: Care transferred to Dr. Leija pending remainder of labs and IV hydration. She has a R infiltrate on CXR so plan at this time will be for treatment of CAP and IV fluids here in the ED. Lab Data: Labs: Lab Results 03/13/21 03/13/21 03/13/21 23:48 23:48 23:48 WBC 12.4 10^3/uL H 10 ^3/uL (4.0-10.0) RBC 4.98 10^6/uL 10^6 /uL (4.1-5.3) Hgb 15.1 g/dL g/dL (11.5-15.3) Hct 45.9 % % (37.0-47.0) MCV 92.2 fl fl (81-99) MCH 30.3 pg pg (28.0-34.0) MCHC 32.9 g/dL g/dL (30.0-36.0) RDW 13.4 % % (12.1-15.1) Plt Count 384 10^3/cmm 10^3 /cmm (130-400) MPV 8.9 fL fL (7.4-10.4) Neut % (Auto) 78.0 % % Lymph % (Auto) 15.5 % % [place] % (Auto) 4.7 % % Eos % (Auto) 0.8 % % Baso % (Auto) 0.6 % % Neut # (Auto) 9.70 10^3/uL H 10 ^3/uL (1.8-7.7) Lymph # (Auto) 1.9 10^3/uL 10^3/ uL (0.8-4.8) [place] # (Auto) 0.6 10^3/uL 10^3/ uL (0.2-0.9) Eos # (Auto) 0.1 10^3/uL 10^3/ uL (0.0-0.8) Baso # (Auto) 0.1 10^3/uL 10^3/ uL (0.0-0.1) Nucleated RBC % (a uto) 0 % % Nucleated RBCs # 0.0 /100WBC /100W BC Sodium 135 mmol/L L mmol /L (136-145) Potassium 3.5 mmol/L mmol/L (3.5-5.1) Chloride 97 mmol/L L mmol/ L (98-107) Carbon Dioxide 23 mmol/L mmol/L (22-29) Anion Gap 18.5 (5-19) BUN 22 mg/dL H mg/dL (6-20) Creatinine 2.0 mg/dL H mg/dL (0.5-0.9) GFR Calculation 27.2 mL/min L mL/ min (90-130) Glucose 131 mg/dL H mg/dL (65-115) Calculated Osmolal ity 285 mOsm/kg mOsm/ kg (285-295) Calcium 9.5 mg/dL mg/dL (8.5-10.5) Total Bilirubin 0.2 mg/dL mg/dL (0.15-1.2) AST 16 U/L U/L (0-32) ALT 17 U/L U/L (0-33) Alkaline Phosphata se 89 IU/L IU/L (35-105) Creatine Kinase 370 U/L H* U/L (26-192) CK-MB (CK-2) 4.2 ng/mL ng/mL (0-5.34) CK-MB (CK-2) Rel I ndex % % (0.0-10.4) Total Protein 7.7 g/dL g/dL (6.6-8.7) Albumin 3.8 g/dL g/dL (3.5-5.2) Globulin 3.9 g/dL g/dL (1.3-4.6) Urine Color Urine Appearance Urine pH Ur Specific Gravit y Urine Protein Urine Glucose (UA) Urine Ketones Urine Blood Urine Nitrate Urine Bilirubin Urine Urobilinogen Ur Leukocyte Mary ase Urine RBC Urine WBC Ur Squamous Epith Cells Amorphous Sediment Urine Bacteria Fine Granular Cast s Nasal/Oral COVID-1 9 PCR Influenza Type A A g Influenza Type B A g SARS-CoV-2 Ag (Rap id) 03/14/21 03/14/21 03/14/21 00:06 02:30 04:00 WBC RBC Hgb Hct MCV MCH MCHC RDW Plt Count MPV Neut % (Auto) Lymph % (Auto) [place] % (Auto) Eos % (Auto) Baso % (Auto) Neut # (Auto) Lymph # (Auto) [place] # (Auto) Eos # (Auto) Baso # (Auto) Nucleated RBC % (a uto) Nucleated RBCs # Sodium Potassium Chloride Carbon Dioxide Anion Gap BUN Creatinine GFR Calculation Glucose Calculated Osmolal ity Calcium Total Bilirubin AST ALT Alkaline Phosphata se Creatine Kinase CK-MB (CK-2) CK-MB (CK-2) Rel I ndex Total Protein Albumin Globulin Urine Color Urine Appearance Urine pH Ur Specific Gravit y Urine Protein Urine Glucose (UA) Urine Ketones Urine Blood Urine Nitrate Urine Bilirubin Urine Urobilinogen Ur Leukocyte Mary ase Urine RBC Urine WBC Ur Squamous Epith Cells Amorphous Sediment Urine Bacteria Fine Granular Cast s Nasal/Oral COVID-1 9 PCR Cancelled Influenza Type A A g Negative (Negative) Influenza Type B A g Negative (Negative) SARS-CoV-2 Ag (Rap id) Negative (Negative) 03/14/21 04:10 WBC RBC Hgb Hct MCV MCH MCHC RDW Plt Count MPV Neut % (Auto) Lymph % (Auto) [place] % (Auto) Eos % (Auto) Baso % (Auto) Neut # (Auto) Lymph # (Auto) [place] # (Auto) Eos # (Auto) Baso # (Auto) Nucleated RBC % (a uto) Nucleated RBCs # Sodium Potassium Chloride Carbon Dioxide Anion Gap BUN Creatinine GFR Calculation Glucose Calculated Osmolal ity Calcium Total Bilirubin AST ALT Alkaline Phosphata se Creatine Kinase CK-MB (CK-2) CK-MB (CK-2) Rel I ndex Total Protein Albumin Globulin Urine Color Yellow (Yellow) Urine Appearance Hazy A (CLEAR) Urine pH 5 (5-7) Ur Specific Gravit y 1.020 (1.005-1.030) Urine Protein Neg (Negative) Urine Glucose (UA) Norm (Normal) Urine Ketones Negative (Negative) Urine Blood 2+ H (Negative) Urine Nitrate Negative (Negative) Urine Bilirubin Neg (Negative) Urine Urobilinogen Norm mg/dL mg/dL (Negative) Ur Leukocyte Mary ase Negative (Negative) Urine RBC 0-4 /hpf H /hpf (0-2) Urine WBC 0-4 /hpf H /hpf (0-5) Ur Squamous Epith Cells 10-15 /hpf H /hpf (0-5) Amorphous Sediment Not Reportable Urine Bacteria 1+ /hpf H /hpf (NONE) Fine Granular Cast s 0-4 /lpf H /lpf Nasal/Oral COVID-1 9 PCR Influenza Type A A g Influenza Type B A g SARS-CoV-2 Ag (Rap id) Imaging Data^: CXR: Radiologist's impression: [address] [address] XRay Report Signed Patient: Radha Boyer Unit #: [id number] : 1975 Age/Sex: 45 / F ADM Date: 03/13/21 Loc: ER Room/Bed: Attending Dr: Ordering Provider/Ordering MD: Kory Leija MD Date of Service: 03/13/21 Procedure(s): XR chest 2V* [id number] Accession Number(s): [id number] Report Number: [id number] PROCEDURE INFORMATION: Exam: XR Chest Exam date and time: 03/13/2021 11:40 PM Age: 45 years old Clinical indication: Cough and shortness of breath; Patient HX: Cough with SOB. ; Additional info: SOA TECHNIQUE: Imaging protocol: XR of the chest. Views: 2 views. COMPARISON: CR XR chest 1V portable [id number] 05/24/2020 3:43 PM FINDINGS: Lungs: Right hilar to lower lobe atelectasis versus minimal infiltrate. Pleural spaces: Unremarkable. No pleural effusion. No pneumothorax. Heart/Mediastinum: Unremarkable. No cardiomegaly. Bones/joints: Unremarkable. XR/XR chest 2V* [id number] IMPRESSION: Right hilar to lower lobe atelectasis versus minimal infiltrate. Radiation Dose CTDIVOL = (mGy): DLP = (mGy-cm) Dictated By: Veto Thomas MD Signed By: Veto Thomas MD Signed Date/Time: 03/14/21 0133 DD/ 2340 Discharge Plan Discharge Patient Disposition: Home Clinical Impression: Dehydration Pneumonia involving right lung Qualifiers: Pneumonia type: due to unspecified organism Lung location: unspecified part of lung Qualified Code(s): J18.9 - Pneumonia, unspecified organism Condition: Stable Prescriptions: New amoxicillin 500 mg capsule 1,000 mg PO TID 7 Days Qty: 42 RF: 0 azithromycin 250 mg tablet See Rx Instructions .ROUTE .COMPLEX Qty: 6 RF: 0 No Action chlorthalidone 25 mg tablet 25 mg PO DAILY@0800 Qty: 90 RF: 1 lisinopril 10 mg tablet 10 mg PO DAILY@0800 30 Days Qty: 90 RF: 1 simvastatin 20 mg tablet 20 mg PO BEDTIME@2100 30 Days Qty: 90 RF: 1 ropinirole 1 mg tablet 1 mg PO BID@0800,2100 30 Days Qty: 180 RF: 1 Maxalt 10 mg tablet 10 mg PO .COMPLEX PRN (Reason: Migraine Headache) 30 Days Qty: 27 RF: 1 venlafaxine 75 mg capsule,extended release 24hr 75 mg PO DAILY@0800 30 Days Qty: 90 RF: 1 meloxicam [Mobic] 15 mg tablet 15 mg PO DAILY Qty: 90 RF: 0 Discharge Orders: Discharge ED (Routine); Ordered 03/14/21 Ordered By: Kory Leija Referrals: Radha Ruiz DO [Primary Care Provider] - 1-3 days Discharge Diet: Advance as tolerated Discharge Activity: Resume usual activity Patient Instructions: Dehydration (ED), Bacterial Pneumonia (DC) Coding Level of Care Code ED Gas Roller Operator for g Fwd Exam Comprehensive Documented by User: Kory Leija MD 03/14/21 04:04 HPI - General Adult General: Chief complaint: General Medical Stated complaint: n/v/d, abd pain,dizziness Time Seen by Provider: 03/14/21 01:56 PFSH ED PFSH: Medical History (Updated 03/14/21 @ 02:57 by REUBEN Cuello) Acquired hypothyroidism Essential (primary) hypertension GERD (gastroesophageal reflux disease) Menopausal syndrome (hot flashes) Migraine without aura and with status migrainosus, not intractable Nicotine dependence, cigarettes, with unspecified nicotine-induced disorders Seizure disorder Surgical History H/O section H/O knee surgery History of placement of ear tubes Family History Father Diabetes Hypertension CAD (coronary artery disease) Grandfather CAD (coronary artery disease) Social History Smoking and tobacco status: never smoked Alcohol intake: former Course Vital Signs: Vital signs: Vital Signs Temperature 97.7 F 03/13/21 23:31 Pulse Rate 70 03/14/21 02:38 Respiratory Rate 18 03/14/21 02:38 Blood Pressure 110/70 03/14/21 02:38 Pulse Oximetry 98 03/14/21 02:38 MDM - General Adult MDM Narrative: Medical decision making narrative: Patient presents here found to have a pneumonia slight dehydration she feels improved here patient on antibiotics she is to follow-up with her PCP and return if worsening. Lab Data: Labs: Lab Results 03/13/21 03/13/21 03/13/21 23:48 23:48 23:48 WBC 12.4 10^3/uL H 10 ^3/uL (4.0-10.0) RBC 4.98 10^6/uL 10^6 /uL (4.1-5.3) Hgb 15.1 g/dL g/dL (11.5-15.3) Hct 45.9 % % (37.0-47.0) MCV 92.2 fl fl (81-99) MCH 30.3 pg pg (28.0-34.0) MCHC 32.9 g/dL g/dL (30.0-36.0) RDW 13.4 % % (12.1-15.1) Plt Count 384 10^3/cmm 10^3 /cmm (130-400) MPV 8.9 fL fL (7.4-10.4) Neut % (Auto) 78.0 % % Lymph % (Auto) 15.5 % % [place] % (Auto) 4.7 % % Eos % (Auto) 0.8 % % Baso % (Auto) 0.6 % % Neut # (Auto) 9.70 10^3/uL H 10 ^3/uL (1.8-7.7) Lymph # (Auto) 1.9 10^3/uL 10^3/ uL (0.8-4.8) [place] # (Auto) 0.6 10^3/uL 10^3/ uL (0.2-0.9) Eos # (Auto) 0.1 10^3/uL 10^3/ uL (0.0-0.8) Baso # (Auto) 0.1 10^3/uL 10^3/ uL (0.0-0.1) Nucleated RBC % (a uto) 0 % % Nucleated RBCs # 0.0 /100WBC /100W BC Sodium 135 mmol/L L mmol /L (136-145) Potassium 3.5 mmol/L mmol/L (3.5-5.1) Chloride 97 mmol/L L mmol/ L (98-107) Carbon Dioxide 23 mmol/L mmol/L (22-29) Anion Gap 18.5 (5-19) BUN 22 mg/dL H mg/dL (6-20) Creatinine 2.0 mg/dL H mg/dL (0.5-0.9) GFR Calculation 27.2 mL/min L mL/ min (90-130) Glucose 131 mg/dL H mg/dL (65-115) Calculated Osmolal ity 285 mOsm/kg mOsm/ kg (285-295) Calcium 9.5 mg/dL mg/dL (8.5-10.5) Total Bilirubin 0.2 mg/dL mg/dL (0.15-1.2) AST 16 U/L U/L (0-32) ALT 17 U/L U/L (0-33) Alkaline Phosphata se 89 IU/L IU/L (35-105) Creatine Kinase 370 U/L H* U/L (26-192) CK-MB (CK-2) 4.2 ng/mL ng/mL (0-5.34) CK-MB (CK-2) Rel I ndex % % (0.0-10.4) Total Protein 7.7 g/dL g/dL (6.6-8.7) Albumin 3.8 g/dL g/dL (3.5-5.2) Globulin 3.9 g/dL g/dL (1.3-4.6) Urine Color Urine Appearance Urine pH Ur Specific Gravit y Urine Protein Urine Glucose (UA) Urine Ketones Urine Blood Urine Nitrate Urine Bilirubin Urine Urobilinogen Ur Leukocyte Mary ase Urine RBC Urine WBC Ur Squamous Epith Cells Amorphous Sediment Urine Bacteria Fine Granular Cast s Nasal/Oral COVID-1 9 PCR Influenza Type A A g Influenza Type B A g SARS-CoV-2 Ag (Rap id) 03/14/21 03/14/21 03/14/21 00:06 02:30 04:00 WBC RBC Hgb Hct MCV MCH MCHC RDW Plt Count MPV Neut % (Auto) Lymph % (Auto) [place] % (Auto) Eos % (Auto) Baso % (Auto) Neut # (Auto) Lymph # (Auto) [place] # (Auto) Eos # (Auto) Baso # (Auto) Nucleated RBC % (a uto) Nucleated RBCs # Sodium Potassium Chloride Carbon Dioxide Anion Gap BUN Creatinine GFR Calculation Glucose Calculated Osmolal ity Calcium Total Bilirubin AST ALT Alkaline Phosphata se Creatine Kinase CK-MB (CK-2) CK-MB (CK-2) Rel I ndex Total Protein Albumin Globulin Urine Color Urine Appearance Urine pH Ur Specific Gravit y Urine Protein Urine Glucose (UA) Urine Ketones Urine Blood Urine Nitrate Urine Bilirubin Urine Urobilinogen Ur Leukocyte Mary ase Urine RBC Urine WBC Ur Squamous Epith Cells Amorphous Sediment Urine Bacteria Fine Granular Cast s Nasal/Oral COVID-1 9 PCR Cancelled Influenza Type A A g Negative (Negative) Influenza Type B A g Negative (Negative) SARS-CoV-2 Ag (Rap id) Negative (Negative) 03/14/21 04:10 WBC RBC Hgb Hct MCV MCH MCHC RDW Plt Count MPV Neut % (Auto) Lymph % (Auto) [place] % (Auto) Eos % (Auto) Baso % (Auto) Neut # (Auto) Lymph # (Auto) [place] # (Auto) Eos # (Auto) Baso # (Auto) Nucleated RBC % (a uto) Nucleated RBCs # Sodium Potassium Chloride Carbon Dioxide Anion Gap BUN Creatinine GFR Calculation Glucose Calculated Osmolal ity Calcium Total Bilirubin AST ALT Alkaline Phosphata se Creatine Kinase CK-MB (CK-2) CK-MB (CK-2) Rel I ndex Total Protein Albumin Globulin Urine Color Yellow (Yellow) Urine Appearance Hazy A (CLEAR) Urine pH 5 (5-7) Ur Specific Gravit y 1.020 (1.005-1.030) Urine Protein Neg (Negative) Urine Glucose (UA) Norm (Normal) Urine Ketones Negative (Negative) Urine Blood 2+ H (Negative) Urine Nitrate Negative (Negative) Urine Bilirubin Neg (Negative) Urine Urobilinogen Norm mg/dL mg/dL (Negative) Ur Leukocyte [place] Negative (Negative) Urine RBC 0-4 /hpf H /hpf (0-2) Urine WBC 0-4 /hpf H /hpf (0-5) Ur Squamous Epith Cells 10-15 /hpf H /hpf (0-5) Amorphous Sediment Not Reportable Urine Bacteria 1+ /hpf H /hpf (NONE) Fine Granular Cast s 0-4 /lpf H /lpf Nasal/Oral COVID-1 9 PCR Influenza Type A A g Influenza Type B A g SARS-CoV-2 Ag (Rap id) Discharge Plan Discharge Patient Disposition: Home Clinical Impression: Dehydration Pneumonia involving right lung Qualifiers: Pneumonia type: due to unspecified organism Lung location: unspecified part of lung Qualified Code(s): J18.9 - Pneumonia, unspecified organism Condition: Stable Prescriptions: New amoxicillin 500 mg capsule 1,000 mg PO TID 7 Days Qty: 42 RF: 0 azithromycin 250 mg tablet See Rx Instructions .ROUTE .COMPLEX Qty: 6 RF: 0 No Action chlorthalidone 25 mg tablet 25 mg PO DAILY@0800 Qty: 90 RF: 1 lisinopril 10 mg tablet 10 mg PO DAILY@0800 30 Days Qty: 90 RF: 1 simvastatin 20 mg tablet 20 mg PO BEDTIME@2100 30 Days Qty: 90 RF: 1 ropinirole 1 mg tablet 1 mg PO BID@0800,2100 30 Days Qty: 180 RF: 1 Maxalt 10 mg tablet 10 mg PO .COMPLEX PRN (Reason: Migraine Headache) 30 Days Qty: 27 RF: 1 venlafaxine 75 mg capsule,extended release 24hr 75 mg PO DAILY@0800 30 Days Qty: 90 RF: 1 meloxicam [Mobic] 15 mg tablet 15 mg PO DAILY Qty: 90 RF: 0 Discharge Orders: Discharge ED (Routine); Ordered 10/20/21 Ordered By: Kory Leija Referrals: Radha Ruiz DO [Primary Care Provider] - 1-3 days Discharge Diet: Advance as tolerated Discharge Activity: Resume usual activity Patient Instructions: Dehydration (ED), Bacterial Pneumonia (DC) Coding Level of Care Code ED Gas Roller Operator for Chg Fwd Exam Comprehensive
[2021-03-14 02:33] LABS: Creatine Phosphokinase 370 U/L (26-192)
[2021-03-14 02:38] VITALS: BP 110/70; PULSE 70; RESP 18; O2SAT 98
[2021-03-14 02:52] LABS: CKMB 4.2 ng/mL (0-5.34)
[2021-03-14 03:46] LABS: SARS Covid-2 Antigen Negative (Negative)
[2021-03-14 04:31] LABS: Add Urine Microscopic? YES; Bilirubin Urine Neg (Negative); Blood Urine 2+ (Negative); Glucose Urine UA Norm (Normal); Ketones Urine Negative (Negative); Leukocyte Esterase Urine Negative (Negative); Nitrate Urine Negative (Negative); Protein Urine Neg (Negative); Urine Appearance Hazy (CLEAR); Urine Color Yellow (Yellow); Urobilinogen Urine Norm (Negative); pH Urine 5 (5-7)
[2021-03-14 04:34] LABS: Bacteria Urine 1+ /hpf; RBC Urine 0-4 /hpf (0-2); WBC Urine 0-4 /hpf (0-5)
[2021-03-14 04:35] LABS: Add Urine Culture? No; Fine Granular Casts Urine 0-4 /lpf
== END 2021-03-14 04:20 | disposition home or self-care (01) ==
PROVIDERS: Physician Assistant; Emergency Provider Emergency Medicine; PCP Family Medicine
DX: J18.9 Pneumonia, unspecified organism (principal); E86.0 Dehydration; I10 Essential (primary) hypertension; Z20.822 Contact with and (suspected) exposure to COVID-19
CPT/HCPCS: 71046; 80053; 81001; 82550; 82553; 85025; 87426; 87804; 99282

== ENCOUNTER → 2021-08-21 08:55 | Outpatient (BNVA) | payer BC, SELFPAY | PROVIDERS: PCP Family Medicine; Visit Provider Family Medicine | DX: I10 Essential (primary) hypertension (principal); E78.2 Mixed hyperlipidemia; M25.562 Pain in left knee; G89.29 Other chronic pain | CPT/HCPCS: 80048 ==

== ENCOUNTER → 2021-12-04 11:20 | Outpatient (BNVA) | payer BC, SELFPAY | PROVIDERS: PCP Family Medicine; Visit Provider Family Medicine | DX: I10 Essential (primary) hypertension (principal); E03.9 Hypothyroidism, unspecified; G43.001 Migraine without aura, not intractable, with status migrainosus; E78.2 Mixed hyperlipidemia; G25.81 Restless legs syndrome | CPT/HCPCS: 80053; 80061; 84443; 85025 ==

== ENCOUNTER 2022-06-12 10:06 | Outpatient (CLI) | payer BC, SELFPAY ==
[2022-06-12 10:34] VITALS: BMI 45.1
--- NOTE | 2022-06-12 10:37 | ECG_ITS ---
[facility] Test Date: 2022-06-12 Pat Name: Radha Boyer Department: Room: Gender: Female Advertising Coordinator: Marylin Munguia : 1975 Requested By: Radha Ruiz Order Number: [id number] Leena MD: Jamie Batres M.D. Interpretive Statements NAME OF STUDY: EXERCISE SESTAMIBI STRESS TEST INDICATION: [Atypical Chest Pain, ] EXERCISE DATA: The patient was exercised by Luke protocol. Baseline heart rate was 93 beats per minute. Baseline blood pressure was 124/80 millimeters of mercury. Target heart rate was 150 beats per minute. Maximum heart rate achieved was 163 which was 108% of the target heart rate. Maximum blood pressure was 222/84 millimeters of mercury. Total exercise time was 5 minutes. Maximum METs achieved was 7. The reason for ending the test was maximal effort achieved. The patient complained of shortness of breath during the stress test, which then resolved at the end of the test. ELECTROCARDIOGRAM: BASELINE: Showed sinus rhythm, normal axis, no significant ST-T changes at the baseline noted. [] EXERCISE: At the peak exercise level, [] No significant ST-T changes suggestive of ischemia noted. [] RECOVERY: During the recovery period, heart rate dropped appropriately. No significant ST-T changes in the recovery suggestive of ischemia noted. [] CONCLUSION: 1. Exercise capacity fair 2. Heart rate response was appropriate 3. Blood pressure response was hypertensive 4. Symptoms not suggestive of ischemia. 5. Electrocardiogram portion of the stress test was not suggestive of ischemia. 6. Nuclear scan will be documented separately. Electronically Signed On 06-23-2022 20:39:41 TOWN CLERK by Jamie Batres M.D. [id number]
--- NOTE | 2022-06-12 10:38 | NMCV_ITS ---
NM venkat perf SPECT r/s* [id number] RosalindMarleniRadha Age: 46 Gender: F : 1975 Exam Date: 06/12/2022 10:38 Ordering Phys: Radha Ruiz DO Technologist: DERICK Benítez Exam Location: [facility] Indications: HYPERTENSION STRESS TEST Please see separate stress test report in [facility] for full findings IMAGE PROTOCOL Rest/Stress 1 Exercise Day Radiopharmaceutical Dose (mCi) Administration Site Administered by Rest: Tc-99m 10.7 IV DERICK Easley Sestamishun Stress:Tc-99m 33.0 IV DERICK Easley Sestamishun Rest: 12-Jun-2022 60 Discovery 630 Stress: 12-Jun-2022 30 Discovery 630 Radiopharmaceutical was injected at 87 % maximum heart rate. Images obtained in supine and prone position. SPECT RESULTS Technical Quality: Excellent Raw Data Analysis: Normal Image Corrections: No attenuation or motion correction applied Summed Stress Score: 0 Summed Rest Score: 5 Summed Difference Score: 0 PERFUSION FINDINGS There is reduced radiotracer uptake seen in apical, apical inferior benson on rest imaging. This resolves on stress imaging. This is consistent with attenuation artifact. No evidence of ischemia seen. FUNCTIONAL RESULTS (calculated via Gated SPECT) Stress Image LV EF (%): 69 Stress EDV (mL):101 TID: 0.97 Stress ESV (mL):31 FUNCTIONAL FINDINGS: There is normal left ventricular systolic function. IMPRESSIONS 1. Normal myocardial perfusion imaging with no evidence of ischemia. Attenuation artifact is seen in apical and apical inferior benson. 2. LV systolic function is normal. Jamie Batres MD (Electronically Signed) Final Date: 15 June 2022 10:30 S
[2022-06-12 12:51] VITALS: BP 132/78; PULSE 100
== END 2022-06-12 10:07 | disposition home or self-care (01) ==
PROVIDERS: PCP Family Medicine; Visit Provider Family Medicine
DX: I10 Essential (primary) hypertension (principal); R07.89 Other chest pain
CPT/HCPCS: 36415; 78452; 93017; A9500

== ENCOUNTER → 2022-07-17 11:22 | Outpatient (BNVA) | payer BC, SELFPAY | PROVIDERS: PCP Family Medicine; Visit Provider Nurse Practitioner Family | DX: R39.9 Unspecified symptoms and signs involving the genitourinary system (principal) | CPT/HCPCS: 81000; 87086 ==

== ENCOUNTER 2022-11-03 21:49 | Emergency (ER) | payer BC, SELFPAY ==
[2022-11-03 22:03] VITALS: BP 134/85; PULSE 93; RESP 16; TEMP 36.7; O2SAT 98; BMI 44.4
--- NOTE | 2022-11-03 22:11 | W.ED.HA ---
HPI - Headache General: Chief Complaint: Headache Stated Complaint: Migraine Time Seen by Provider: 11/03/22 21:51 Source: patient Mode of arrival: ambulatory Limitations: no limitations History of Present Illness: 47-year-old female with a history of migraine headache states she had a migraine over the last 2 days states pain is currently an 8 out of 10 and feels like her previous migraine she has photophobia and phonophobia she denies any fever denies any neck pain. Associated symptoms: Deny chest pain, fever(s), nausea, rash or vomiting Review of Systems Const: Denies: fever(s) or chills ENMT: Denies: throat pain or dental pain Card: Denies: chest pain Resp: Denies: dyspnea GI: Denies: abdominal pain, nausea, vomiting or diarrhea Musc: Denies: neck pain or back pain Skin/Breast: Denies: rash Neuro: Reports: headache(s) PFS ED PFSH: Medical History Acquired hypothyroidism Bipolar 2 disorder Essential (primary) hypertension GERD (gastroesophageal reflux disease) Grief at loss of child History of sleep study Menopausal syndrome (hot flashes) Migraine without aura and with status migrainosus, not intractable Nicotine dependence, cigarettes, with unspecified nicotine-induced disorders Obstructive sleep apnea Opioid contract exists Psychiatric care Seizure disorder Surgical History H/O section H/O knee surgery History of placement of ear tubes Family History Father Diabetes Hypertension CAD (coronary artery disease) Grandfather CAD (coronary artery disease) Social History Smoking and tobacco status: current every day smoker cigarettes Packs smoked per day: 1 Alcohol intake: never Counseling given: No Substance/Drug Use: never Counseling given: No Physical Exam Const: COMMON NORMALS: no acute distress and patient oriented x3 HENMT: COMMON NORMALS: normocephalic and atraumatic HEAD & SCALP: normocephalic and atraumatic Eye: COMMON NORMALS: Equal, round and reactive pupils present and EOMs intact bilaterally PUPIL: Yes Equal, round and reactive pupils present Neck/C-Spine: COMMON NORMALS: full ROM and supple Chest: COMMONS NORMALS: normal inspection of the chest and normal palpation of entire chest wall Resp: COMMON NORMALS: normal respiratory effort, No retractions, No use of accessory muscles and clear to auscultation bilaterally AUSCULTATION: clear to auscultation bilaterally Cardio: COMMON NORMALS: regular rate, regular rhythm and No murmurs present (Cardio) RATE: regular rate RHYTHM: regular rhythm GI: COMMON NORMALS: Normal to inspection, nondistended, normoactive bowel sounds present, Soft to palpation, non-tender and no masses PALPATION: Yes Soft to palpation Extremity: COMMON NORMALS: normal to inspection and full ROM Neuro: COMMON NORMALS: patient oriented x3, moves all extremities and no focal motor deficits Psych: COMMON NORMALS: mental status grossly normal, Normal thought process present and cooperative THOUGHT PROCESS: Normal thought process present Skin: COMMON NORMALS: no rashes or lesions noted and no wounds GENERAL SKIN EXAM: no rashes or lesions noted Course Vital Signs: Vital signs: Vital Signs Temperature 98.1 F 11/03/22 22:03 Pulse Rate 91 11/03/22 22:24 Respiratory Rate 16 11/03/22 22:24 Blood Pressure 156/102 11/03/22 22:24 Pulse Oximetry 98 11/03/22 22:24 Oxygen Delivery Me thod Room Air 11/03/22 22:24 MDM - Headache Medical Decision Making Patient presents with a headache that is consistent with a migraine headache she feels much improved here she has no signs of meningitis or subarachnoid hemorrhage she is stable for discharge she is to follow-up with PCP and return if worsening. Medical Records I reviewed the patient's medical records. Discharge Plan Discharge Patient Disposition: Home Clinical Impression: Headache Condition: Stable Prescriptions: No Action lamotrigine [Lamictal] 100 mg tablet 100 mg PO DAILY Qty: 30 1RF sertraline [Zoloft] 100 mg tablet 100 mg PO DAILY Qty: 30 1RF Maxalt 10 mg tablet 10 mg PO .COMPLEX PRN (Reason: Migraine Headache) 30 Days Qty: 27 1RF Rx Instructions: 10 mg PO PRN; chlorthalidone 25 mg tablet 25 mg PO DAILY@0800 Qty: 90 1RF lisinopril 10 mg tablet 10 mg PO DAILY@0800 90 Days Qty: 90 1RF ropinirole 1 mg tablet 1 mg PO BID@0800,2100 90 Days Qty: 180 1RF simvastatin 20 mg tablet See Rx Instructions .ROUTE .COMPLEX Qty: 90 1RF Dose Instruction: TAKE 1 TABLET BY MOUTH AT BEDTIME AT 9 PM. Rx Instructions: TAKE 1 TABLET BY MOUTH AT BEDTIME AT 9 PM. lorazepam [Ativan] 0.5 mg tablet 0.5 mg PO BID PRN (Reason: anxiety) Qty: 20 0RF Discharge Orders: Discharge ED (Routine); Ordered 11/03/22 Ordered By: Kory Leija Referrals: Radha Ruiz DO [Primary Care Provider] - 1-3 days Discharge Diet: Advance as tolerated Discharge Activity: Resume usual activity Patient Instructions: General Headache (ED) Coding Level of Care Code ED Staff Mine Warfare Officer for Giovanny Altamirano
[2022-11-03] MEDS: ketorolac 30 mg/mL INJ 15 MG IVP (22:18)
[2022-11-03] MEDS: diphenhydrAMINE 50 mg/mL SDV 1mL IVP (22:19)
[2022-11-03] MEDS: metoclopramide 5 mg/mL SDV 2 mL 10 MG IVP (22:20)
[2022-11-03 22:24] VITALS: BP 156/102; PULSE 91; RESP 16; O2SAT 98
[2022-11-03 23:09] VITALS: BP 149/106; PULSE 100; RESP 16; O2SAT 97
== END 2022-11-03 23:10 | disposition home or self-care (01) ==
PROVIDERS: Emergency Provider Emergency Medicine; PCP Family Medicine
DX: R51.9 Headache, unspecified (principal)
CPT/HCPCS: 96374; 96375; 99284; J1200; J1885; J2765

== ENCOUNTER → 2022-12-03 10:38 | Day surgery (SDC) | payer BC, SELFPAY ==
[2022-12-02 10:57] VITALS: BMI 44.4
[2022-12-03] VITALS (9 sets, daily range): BP systolic 126–168; BP diastolic 83–96; PULSE 80–92; RESP 16–18; TEMP 36.1–36.3; O2SAT 94–100
[2022-12-03 10:50] LABS: OR HCG Qualitative Urine Negative (Negative)
[2022-12-03] MEDS: sodium chloride 0.9% 1,000 ML 30 ML IV (11:08)
--- NOTE | 2022-12-03 11:40 | ANES.PREANE2 ---
Pre-Anesthetic Assessment Height/Weight: Height 1.78 m Weight 140.614 kg Temp Pulse Resp BP Pulse Ox O2 Del Method 97.4 F L 92 18 168/96 98 Room Air 12/03/22 10:51 12/03/22 10:51 12/03/22 10:51 12/03/22 10:51 12/03/22 10:51 12/03/22 10:54 Preop Diagnosis: Right upper lip hemangioma Operation Date: 12/03/22 12:00 Proposed Procedures p 69380 -excision of upper lip lesion D18.01(Not Applicable) - Kahlil Fitzpatrick MD Familial anesthetic complications: None Was Beta Eloisa taken within 24 hours: N/A Was Clonidine taken within 24 hours: N/A Last intake: Intake Last Liquid Date 12/02/22 Last Liquid Time 21:00 Last Solid Date 12/02/22 Last Solid Time 21:00 Social Tobacco and No alcohol Exam alert, oriented x 3, clear to auscultation bilaterally and regular rate & rhythm Airway Mallampati: Class III Dentition: chipped Pulmonary Sleep Apnea CV/HEM Hypertension Metabolic Hyperlipidemia, Morbid Obesity and Thyroid Disease Anesthetic Plan ASA status: 3 Anesthesia: Choice Risk of > 500 ml blood loss (7ml/kg in children): No Medications/Allergies Home Medications Medication Instructions Recorded Confirmed Last Taken Type rizatriptan 10 mg tablet (Maxalt) 10 mg PO .COMPLEX PRN Migraine 06/04/22 12/02/22 Unknown Rx Headache 30 days #27 tabs chlorthalidone 25 mg tablet 25 mg PO DAILY@0800 #90 tabs 10/10/22 12/02/22 12/03/22 07:00 Rx lisinopril 10 mg tablet 10 mg PO DAILY@0800 90 days #90 10/10/22 12/02/22 12/03/22 07:00 Rx tabs ropinirole 1 mg tablet 1 mg PO BID@0800,2100 90 days #180 10/10/22 12/02/22 12/02/22 Rx tabs simvastatin 20 mg tablet See Rx Instructions .Route 10/10/22 12/02/22 12/02/22 Rx .COMPLEX #90 tabs lamotrigine 100 mg tablet 100 mg PO DAILY #30 tabs 11/05/22 12/02/22 12/03/22 07:00 Rx (Lamictal) lorazepam 0.5 mg tablet (Ativan) 0.5 mg PO BID PRN anxiety #20 tabs 11/05/22 12/03/22 Unknown Rx sertraline 100 mg tablet (Zoloft) 100 mg PO DAILY #30 tabs 11/05/22 12/02/22 12/02/22 Rx Allergies Allergy/AdvReac Type Severity Reaction Status Date / Time chlorhexidine Allergy itchy Verified 12/03/22 10:46 [From Hibiclens] Current Medications Generic Name Dose Route Start Last Admin Trade Name Freq PRN Reason Stop Dose Admin Sodium Chloride 1,000 mls @ 30 mls/hr 12/03/22 10:45 12/03/22 11:08 Sodium Chloride 0.9% IV 12/04/22 10:44 30 mls/hr .Q24H MELCHOR Administration PFSH Anesthesia Medical History Acquired hypothyroidism Bipolar 2 disorder Essential (primary) hypertension GERD (gastroesophageal reflux disease) Grief at loss of child History of sleep study Menopausal syndrome (hot flashes) Migraine without aura and with status migrainosus, not intractable Nicotine dependence, cigarettes, with unspecified nicotine-induced disorders Obstructive sleep apnea Opioid contract exists Psychiatric care Seizure disorder Surgical History H/O section H/O knee surgery History of placement of ear tubes Family History Father Diabetes Hypertension CAD (coronary artery disease) Grandfather CAD (coronary artery disease) Social History Smoking and tobacco status: current every day smoker cigarettes Packs smoked per day: 1 Alcohol intake: never Counseling given: No Substance/Drug Use: never Counseling given: No Data Anesthesia Cardiac Studies: Sestamibi Stress Test (Cardiology) 06/12/22
--- NOTE | 2022-12-03 11:53 | W.PM.OPSUD ---
Surgery/Procedure H&P Update DATE OF PROCEDURE: December 03, 2022 DATE H&P PERFORMED: 11/18/22 H&P UPDATE INFORMATION: I have reviewed H&P completed within last 30 days, I have examined patient prior to procedure and No changes to prior documentation CHANGES TO PREVIOUS DOCUMENTATION: No changes PREOP DIAGNOSIS: Right upper lip hemangioma PRIMARY INDICATION FOR PROCEDURE: Hemangioma of right upper lip PLANNED PROCEDURE: Operation Date: 12/03/22 12:00 Proposed Procedures p [id number] -excision of upper lip lesion D18.01(Not Applicable) - Kahlil Fitzpatrick MD
--- NOTE | 2022-12-03 12:36 | PC.NURSE ---
Pt. c/o restless leg syndrome and requested medication for the sx. Anesthesia, Dr. Gray, consulted and instructions received to allow pt to take her roperinol from her home rx's with sip of water. Or nurse notified.
[2022-12-03] MEDS: ceFAZolin 3,000 MG in sodium chloride 0.9% (100 ml) 100 ML 200 MG IV (12:40)
[2022-12-03] MEDS: lidocaine-epi 2% 1.7mL Cartridge (OR Only) 3.4 ML XX (13:10)
[2022-12-03] MEDS: neomycin-poly-bacitracin oint 28 gm 1 APPLIC TOPICAL (13:26)
--- NOTE | 2022-12-03 13:31 | PM.OP ---
Operative Report Date of procedure: December 03, 2022 Pre-op diagnosis: Preop Diagnosis Right upper lip hemangioma Post-op diagnosis: Same Post-op findings: Same Procedure done: Excision of right upper lip hemangioma and repair Specimens removed/disposition: Hemangioma right upper lip Pathology: Hemangioma right upper lip Surgeon: Kahlil Fitzpatrick MD Anesthesia: General and Local Estimated blood loss: 5 mL Complications: No complications encountered Findings: Patient has a 5 mm raised hemangioma of the right upper lip and the vermilion. Brief History: 47-year-old female patient with an enlarging hemangioma of the right upper lip. It is bothering the patient. Because of its growth and the fact that the patient is bothered by the mass being present she is being brought to the operating room at this time to undergo excision of this lesion. The procedure its risks and complications have been explained in detail. Informed consent was obtained and witnessed. The risks discussed included bleeding infection scarring recurrence and need for additional treatment as well as anesthetic risks. Procedure: Description of procedure: The patient was placed on the operating table in the supine position. Adequate general endotracheal tube anesthesia was obtained. The patient was given IV antibiotics. The table was rotated 90 degrees. Patient's upper lip was cleansed with alcohol and then the area of the surgery was infiltrated with a total of 3.4 mL of 2% Xylocaine with 1-100,000 epinephrine. The patient was then prepped and draped in usual fashion. A timeout was accomplished identifying the patient and date of and planned procedure and allergies and fire risk and medications given. With all in agreement the procedure continued. A marking pen was used to outline a fusiform excision pattern running in the direction of the for os of the upper lip. A 15 blade was used to create this incision carrying it down through the vermilion and down to the subcutaneous minor salivary glands. In this plane and just over the opercular source muscle the lesion was excised. Hemostasis was attained with bipolar cautery. The lesion was forwarded to pathology for permanent section diagnosis only. Once again the area was checked for any bleeding. Again bipolar cautery was used to control bleeding. The area was then irrigated with saline. The defect was then closed with interrupted 4-0 Vicryl suture. 6 sutures were placed. Length of incision was 1.5 cm. Pressure was then applied for several minutes. Then Neosporin ointment was applied and the drapes were removed. The patient was returned to anesthesia for wake-up and extubation. She tolerated the procedure well had an estimated blood loss of 5 mL and arrived in recovery in stable condition.
--- NOTE | 2022-12-03 14:36 | ANE.PACU2 ---
Inpatient post-anesthesia follow up: Airway intact: Yes Vital signs: Temperature 97.4 F Pulse Rate 84 Respiratory Rate 18 Blood Pressure 133/83 Pulse Oximetry 94 Oxygen Delivery Me thod Room Air Oxygen Flow Rate 6 Fraction of Inspir ed Oxygen Hydration adequate: Yes Nausea and vomiting: Yes Pain level: 1 Mental status: Baseline
[2022-12-03] MEDS: acetaminophen-codeine 300-30mg Tablet 1 TAB PO (14:41)
== END | disposition home or self-care (01) ==
PROVIDERS: PCP Family Medicine; Visit Provider Otolaryngology
PROC: (CPT 11442; principal; 2022-12-03 12:00)
DX: D18.01 Hemangioma of skin and subcutaneous tissue (principal); I10 Essential (primary) hypertension; G47.33 Obstructive sleep apnea (adult) (pediatric); E03.9 Hypothyroidism, unspecified; K21.9 Gastro-esophageal reflux disease without esophagitis; F31.81 Bipolar II disorder; F17.210 Nicotine dependence, cigarettes, uncomplicated
CPT/HCPCS: 11442; 81025; 84703; 88305; J0330; J0690; J2250; J2405; J2704; J3010; J3490; J7030

== ENCOUNTER 2023-01-01 09:04 | Emergency (ER) | payer BC, SELFPAY ==
[2023-01-01] VITALS (7 sets, daily range): BP systolic 115–142; BP diastolic 85–112; PULSE 79–89; RESP 17–18; TEMP 36.5; O2SAT 95–98; BMI 45.1
--- NOTE | 2023-01-01 09:08 | W.ED.CHESTPA ---
HPI - Chest Pain General: Chief Complaint: Chest Pain Stated Complaint: chest pain, high bp Time Seen by Provider: 01/01/23 09:07 History of Present Illness: Mr. Boyer is a 47-year-old lady with history of hypertension, obesity, current smoking presenting to the emergency department for evaluation of chest pain. She reports onset of symptoms without known specific provoking event while at work about 15 to 30 minutes prior to presentation. Describes generalized chest discomfort associated with shortness of breath and subsequent nausea and mild clamminess. Reports infrequent history of chest pain however this is by far the worst. Currently moderate intensity that was severe. No other specific changes in health, exacerbating, or alleviating factors identified. Onset (ago): minute(s) Onset: during exertion Pain location: substernal Severity: moderate Quality: heaviness Associated symptoms: Reports dyspnea and nausea Review of Systems General: Reports: 10 or more systems reviewed and unremarkable except in HPI and below Resp: Reports: dyspnea GI: Reports: nausea PFSH ED PFSH: Medical History Acquired hypothyroidism Bipolar 2 disorder Essential (primary) hypertension GERD (gastroesophageal reflux disease) Grief at loss of child History of sleep study Menopausal syndrome (hot flashes) Migraine without aura and with status migrainosus, not intractable Nicotine dependence, cigarettes, with unspecified nicotine-induced disorders Obstructive sleep apnea Opioid contract exists Psychiatric care Seizure disorder Surgical History H/O section H/O knee surgery History of placement of ear tubes History of surgical removal of skin lesion hx lesion removal from lip Family History Father Diabetes Hypertension CAD (coronary artery disease) Grandfather CAD (coronary artery disease) Social History Smoking and tobacco status: current every day smoker cigarettes Packs smoked per day: 1 Alcohol intake: never Counseling given: No Substance/Drug Use: never Counseling given: No Physical Exam Const: COMMON NORMALS: alert GENERAL APPEARANCE: cooperative and well developed HENMT: COMMON NORMALS: normocephalic and atraumatic HEAD & SCALP: normocephalic and atraumatic Eye: COMMON NORMALS: conjunctivae normal CONJUNCTIVA: Yes conjunctivae normal SCLERA: sclerae normal Neck/C-Spine: COMMON NORMALS: supple GENERAL: Yes trachea midline Resp: COMMON NORMALS: clear to auscultation bilaterally EFFORT & INSPECTION: Yes able to speak in complete sentences AUSCULTATION: clear to auscultation bilaterally Cardio: COMMON NORMALS: regular rate and regular rhythm RATE: regular rate RHYTHM: regular rhythm GI: COMMON NORMALS: Soft to palpation PALPATION: Yes Soft to palpation and No Tenderness to palpation present (GI) Extremity: GENERAL: Yes normal exam except as noted and No edema Neuro: COMMON NORMALS: moves all extremities SENSORIUM/ORIENTATION: Yes alert and No Orientation impaired Psych: COMMON NORMALS: mental status grossly normal and Normal thought process present THOUGHT PROCESS: Normal thought process present Course Vital Signs: Vital signs: Vital Signs Temperature 97.7 F 01/01/23 09:11 Pulse Rate 79 01/01/23 12:37 Respiratory Rate 17 01/01/23 09:42 Blood Pressure 142/98 01/01/23 12:37 Pulse Oximetry 98 01/01/23 12:37 Oxygen Delivery Me thod Room Air 01/01/23 12:03 MDM - Chest Pain Medical Decision Making 47-year-old lady presenting with chest pain and concern over abnormal blood pressure. Exam as above. Nontoxic EKG demonstrates sinus rhythm with normal axis and intervals. Nonspecific ST segment abnormalities, no STEMI. No significant hematologic or metabolic abnormality to explain symptoms. Negative range 2 out of troponin. hCG negative. Patient treated with aspirin, antiemetic, analgesia with improvement in symptoms. She had recent cardiac testing and therefore does not require readmission. The results of ED evaluation were discussed with the patient including prescriptions and/or symptomatic cares (if applicable) including appropriate and responsible use, followup plan, and return precautions. The patient verbalized understanding and felt safe for discharge. Medical Records I reviewed the patient's medical records. Lab Data I reviewed the patient's lab results. 01/01/23 09:25 01/01/23 09:25 Laboratory Results WBC 7.1 10^3/uL (4.0-10.0) 01/01/23 09:25 RBC 4.69 10^6/uL (4.1-5.3) 01/01/23 09:25 Hgb 14.2 g/dL (11.5-15.3) 01/01/23 09:25 Hct 43.7 % (37.0-47.0) 01/01/23 09:25 MCV 93.2 fl (81-99) 01/01/23 09:25 MCH 30.3 pg (28.0-34.0) 01/01/23 09:25 MCHC 32.5 g/dL (30.0-36.0) 01/01/23 09:25 RDW 13.2 % (12.1-15.1) 01/01/23 09:25 Plt Count 312 10^3/cmm (130-400) 01/01/23 09:25 MPV 8.5 fL (7.4-10.4) 01/01/23 09:25 Neut % (Auto) 65.2 % 01/01/23 09:25 Lymph % (Auto) 24.6 % 01/01/23 09:25 [place] % (Auto) 5.0 % 01/01/23 09:25 Eos % (Auto) 4.1 % 01/01/23 09:25 Baso % (Auto) 0.7 % 01/01/23 09:25 Neut # (Auto) 4.61 10^3/uL (1.8-7.7) 01/01/23 09:25 Lymph # (Auto) 1.7 10^3/uL (0.8-4.8) 01/01/23 09:25 [place] # (Auto) 0.4 10^3/uL (0.2-0.9) 01/01/23 09:25 Eos # (Auto) 0.3 10^3/uL (0.0-0.8) 01/01/23 09:25 Baso # (Auto) 0.1 10^3/uL (0.0-0.1) 01/01/23 09:25 Nucleated RBC % (auto) 0 % 01/01/23 09:25 Nucleated RBCs # 0.0 /100WBC 01/01/23 09:25 Sodium 137 mmol/L (136-145) 01/01/23 09:25 Potassium 4.2 mmol/L (3.5-5.1) 01/01/23 09:25 Chloride 102 mmol/L (98-107) 01/01/23 09:25 Carbon Dioxide 25 mmol/L (22-29) 01/01/23 09:25 Anion Gap 14.2 (5-19) 01/01/23 09:25 BUN 13 mg/dL (6-20) 01/01/23 09:25 Creatinine 0.8 mg/dL (0.5-0.9) 01/01/23 09:25 GFR Calculation 77.6 mL/min (90-130) L 01/01/23 09:25 Glucose 127 mg/dL (65-115) H 01/01/23 09:25 Calculated Osmolality 286 mOsm/kg (285-295) 01/01/23 09:25 Calcium 9.0 mg/dL (8.5-10.5) 01/01/23 09:25 Total Bilirubin 0.2 mg/dL (0.15-1.2) 01/01/23 09:25 AST 17 U/L (0-32) 01/01/23 09:25 ALT 20 U/L (0-33) 01/01/23 09:25 Alkaline Phosphatase 101 U/L (35-105) 01/01/23 09:25 Troponin T Baseline 6 ng/L (0-10) 01/01/23 09:25 Troponin T 120 Minute 6.00 ng/L (0-10) 01/01/23 11:34 Delta Troponin T 0 ABS# (0-10) 01/01/23 11:34 NT-Pro-B Natriuret Pep 54 pg/mL (0-125) 01/01/23 09:25 Total Protein 7.0 g/dL (6.6-8.7) 01/01/23 09:25 Albumin 4.1 g/dL (3.5-5.2) 01/01/23 09:25 Globulin 2.9 g/dL (1.3-4.6) 01/01/23 09:25 Lipase 43 U/L (13-60) 01/01/23 09:25 HCG, Qual Negative (Negative) 01/01/23 11:09 Discharge Plan Discharge Patient Disposition: Home Clinical Impression: Chest pain, HTN (hypertension) Condition: Stable Prescriptions: New hydralazine 10 mg tablet 10 mg PO TID PRN (Reason: hypertension) Qty: 20 0RF Rx Instructions: blood pressure >190/>110 Protonix 40 mg tablet,delayed release (DR/EC) 40 mg PO BID 14 Days Qty: 28 0RF No Action lorazepam [Ativan] 0.5 mg tablet 0.5 mg PO BID PRN (Reason: anxiety) Qty: 20 0RF Maxalt 10 mg tablet 10 mg PO .COMPLEX PRN (Reason: Migraine Headache) 30 Days Qty: 27 1RF Rx Instructions: 10 mg PO PRN; ropinirole 1 mg tablet 1 mg PO BID@0800,2100 90 Days Qty: 180 1RF sertraline [Zoloft] 100 mg tablet 100 mg PO DAILY Qty: 30 1RF lamotrigine [Lamictal] 100 mg tablet 100 mg PO DAILY Qty: 30 1RF chlorthalidone 25 mg tablet 25 mg PO .Q 8 AM simvastatin 20 mg tablet 20 mg PO .Q 9 PM lisinopril 10 mg tablet 10 mg PO .Q 8 AM Discharge Orders: Discharge ED (Routine); Ordered 01/01/23 Ordered By: Paras Soriano Referrals: Radha Ruiz DO [Primary Care Provider] - Discharge Diet: Advance as tolerated and Clear Liquid Discharge Activity: Increase activity as tolerated Patient Instructions: Chest Pain (ED), Hypertension (ED), Opioid Safety Activity Restrictions/Additional Instructions: Thank you for visiting the emergency department. You were seen and evaluated for chest pain. The exact cause of your symptoms is unclear however given recent cardiac testing does not require hospitalization at this time. I will add as needed hydralazine for blood pressure greater than 190 systolic and greater than 110 diastolic. I will also message case management for follow-up with cardiology. Please continue your other medications. Return for uncontrolled symptoms or anything else that you are concerned about and feel needs emergency department evaluation. Coding Level of Care Code ED [employer] Laboratory Assistant for Giovanny Altamirano
--- NOTE | 2023-01-01 09:18 | XR_ITS ---
WS: [id number] XR chest 1V portable [id number] REASON FOR EXAM: cp FINDINGS: Patient rotated to the left. Lungs are hypoexpanded. The heart does not appear to be significantly enlarged. Diffuse reticular and groundglass opacities in both lower lung chaney and centrally in the left perih ilar region. Upper lobe pulmonary veins are prominent. Mild scoliosis and degenerative spondylosis in the mid and lower thoracic spine. Moderate osteoarthri tis in the shoulder joints. IMPRESSION: The symmetry of the findings in the prominent upper lobe pulmonary vein suggest congestive heart fail ure. Pneumonitis less likely but significant consideration.
--- NOTE | 2023-01-01 09:19 | ECG_ITS ---
[facility] Test Date: 2023-01-01 Pat Name: Radha Boyer Department: Room: Gender: Female Magnaflux Operator: : 1975 Requested By: Paras Soriano Order Number: [id number] Leena MD: Emil Larry M.D. Measurements Intervals [place] Rate: 86 P: 63 ME: 160 QRS: 38 QRSD: 99 T: -1 QT: 376 QTc: 450 Interpretive Statements SINUS RHYTHM POSSIBLE RIGHT VENTRICULAR CONDUCTION DELAY [RSR (QR) IN V1/V2] NONSPECIFIC T-WAVE ABNORMALITY INTERPRETATION BASED ON A DEFAULT AGE OF 40 YEARS Compared to ECG 04/02/2018 10:58:53 T-wave abnormality now present Electronically Signed On 01-01-2023 16:46:56 CDT by Emil Larry M.D. [id number] f
[2023-01-01 09:36] LABS: Basophils # 0.1 10^3/uL (0.0-0.1); Basophils % 0.7 %; Eosinophils # 0.3 10^3/uL (0.0-0.8); Eosinophils % 4.1 %; Hematocrit 43.7 % (37.0-47.0); Hemoglobin 14.2 g/dL (11.5-15.3); Lymphocytes # 1.7 10^3/uL (0.8-4.8); Lymphocytes % 24.6 %; Mean Corpuscular HGB Conc 32.5 g/dL (30.0-36.0); Mean Corpuscular Hemoglobin 30.3 pg (28.0-34.0); Mean Corpuscular Volume 93.2 fl (81-99); Mean Platelet Volume 8.5 fL (7.4-10.4); Monocytes # 0.4 10^3/uL (0.2-0.9); Neutrophils # 4.61 10^3/uL (1.8-7.7); Neutrophils % 65.2 %; Nucleated Red Blood Cells % 0 %; Platelet Count 312 10^3/cmm (130-400); Red Blood Count 4.69 10^6/uL (4.1-5.3); Red Cell Distribution Width 13.2 % (12.1-15.1); White Blood Count 7.1 10^3/uL (4.0-10.0)
[2023-01-01] MEDS: aspirin 81 mg Chew Tablet 324 MG PO (09:41)
[2023-01-01] MEDS: morphine 4 mg/mL SDV 1 mL IVP (09:42)
[2023-01-01] MEDS: ondansetron 2 mg/ML SDV 2 mL 4 MG IVP (09:42)
[2023-01-01 10:06] LABS: Alanine Aminotransferase 20 U/L (0-33); Albumin Level 4.1 g/dL (3.5-5.2); Alkaline Phosphatase 101 U/L (35-105); Anion Gap 14.2 (5-19); Aspartate Amino Transferase 17 U/L (0-32); Blood Urea Nitrogen 13 mg/dL (6-20); Carbon Dioxide 25 mmol/L (22-29); Chloride 102 mmol/L (98-107); Globulin 2.9 g/dL (1.3-4.6); Glomerular Filtration Rate 77.6 mL/min (90-130); Glucose 127 mg/dL (65-115); Lipase 43 U/L (13-60); NT Pro B Type Natriuretic Pept 54 pg/mL (0-125); Osmolality Calculated 286 mOsm/kg (285-295); Potassium 4.2 mmol/L (3.5-5.1); Sodium 137 mmol/L (136-145); Total Bilirubin 0.2 mg/dL (0.15-1.2)
[2023-01-01 10:15] LABS: Troponin(5th) Baseline 6 ng/L (0-10)
[2023-01-01 11:22] LABS: HCG Qualitative Urine. Negative (Negative)
--- NOTE | 2023-01-01 11:24 | ECG_ITS ---
[facility] Test Date: 2023-01-01 Pat Name: Radha Boyer Department: Room: Gender: Female Gang Tailer: : 1975 Requested By: Paras Soriano Order Number: [id number] Leena MD: Emil Larry M.D. Measurements Intervals [place] Rate: 72 P: 66 AL: 170 QRS: 40 QRSD: 100 T: 1 QT: 416 QTc: 456 Interpretive Statements SINUS RHYTHM POSSIBLE RIGHT VENTRICULAR CONDUCTION DELAY [RSR (QR) IN V1/V2] NONSPECIFIC T-WAVE ABNORMALITY Compared to ECG 01/01/2023 09:13:53 No significant changes Electronically Signed On 01-01-2023 16:49:24 CDT by Emil Larry M.D. [id number]
[2023-01-01 12:11] LABS: Troponin 5 2HR Delta 0 ABS# (0-10)
--- NOTE | 2023-01-01 15:26 | DCPLANNER ---
Addendum entered by Padmini Bazan 01/02/23 11:49: Patient has a follow up appointment scheduled for January at 12:[address] Batres at [facility]. Original Note: category manager had message to schedule a follow up appointment for patient with cardiology. category manager sent patients information to the front office staff at [facility]. Patients information will be printed and reviewed. Clinic will call patient with appointment information.
== END 2023-01-01 12:35 | disposition home or self-care (01) ==
PROVIDERS: Emergency Provider Emergency Medicine; PCP Family Medicine
DX: R07.9 Chest pain, unspecified (principal); I10 Essential (primary) hypertension
CPT/HCPCS: 36415; 71045; 80053; 81025; 83690; 83880; 84484; 85025; 93005; 96374; 96375; 99285; J2270; J2405

== ENCOUNTER 2023-02-06 06:29 | Outpatient (CLI) | payer BC, SELFPAY ==
--- NOTE | 2023-02-06 | ECG_ITS ---
[facility] Test Date: 2023-02-06 Pat Name: Radha Boyer Department: Room: Gender: Female Claim Auditor: Eric Teodoro : 1975 Requested By: Jamie Batres Order Number: [id number] Leena MD: Jamie Batres M.D. Interpretive Statements NAME OF STUDY: LEXISCAN SESTAMIBI STRESS TEST INDICATION: [Chest Pain; Shortness of Breath, ] Procedure: At the baseline, the blood pressure was 111/91 mmHg with a heart rate of 88 bpm. The electrocardiogram showed normal sinus rhythm, normal axis with normal ST and T's. The Lexiscan was infused over a period of 20 seconds. A total of 0.4 mg of Lexiscan was infused. The stress phase was continued for a total of 5 minutes. Heart rate was at the end of stress phase was 97 bpm and a blood pressure of 126/84 mmHg. The EKG at the peak infusion revealed normal sinus rhythm with no significant ST-T wave changes. Sestamibi was injected 20 seconds after the Lexiscan infusion. Blood pressure at the end of recovery phase was 128/85 mmHg with a heart rate of 97 bpm. Conclusion: 1. Normal EKG response to Lexiscan infusion 2. No Lexiscan induced chest pain or cardiac arrhythmia. 3. Normal blood pressure and heart rate response. 4. Sestamibi/sestamibi perfusion scan pending; see separate report. Electronically Signed On 02-20-2023 14:15:50 CDT by Jamie Batres M.D. [email or web address]
[2023-02-06 06:41] VITALS: BMI 45.0
--- NOTE | 2023-02-06 06:42 | NMCV_ITS ---
NM venkat perf SPECT r/s* [id number] Radha Boyer Age: 47 Gender: F : 1975 Exam Date: 02/06/2023 07:28 Ordering Phys: Jamie Batres M.D ([email or web address]) Technologist: DERICK Benítez Exam Location: [facility] [place] Indications: CHEST PAIN STRESS TEST Please [facility] for [facility] IMAGE PROTOCOL Rest/Stress 1 Lexiscan Day Radiopharmaceutical Dose (mCi) Administration Site Administered by Rest: Tc-99m 10.6 IV DERICK Easley Sestamibi Stress:Tc-99m 33.0 IV DERICK Easley Sestamibi Rest: 06-Feb-2023 60 Discovery 630 Stress: 06-Feb-2023 30 Discovery 630 0.4mg Lexiscan. Images obtained in supine and prone position. SPECT RESULTS Technical Quality: Excellent Raw Data Analysis: Normal Image Corrections: No attenuation or motion correction applied Summed Stress Score: 5 Summed Rest Score: 9 Summed Difference Score: 0 PERFUSION FINDINGS There is a large sized, fixed perfusion defect noted in the inferior wall. 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 No evidence of ischemia. FUNCTIONAL RESULTS (calculated via Gated SPECT) Stress Image LV EF (%): 61 Stress EDV (mL):100 TID: 1.16 Stress ESV (mL):39 FUNCTIONAL FINDINGS: There is normal left ventricular systolic function. IMPRESSIONS 1. Abnormal myocardial perfusion imaging with large sized area of prior infarct noted in the RCA territory. No evidence of ischemia 2. LV systolic function is normal Jamie Batres MD (Electronically Signed) Final Date: 10 February 2023 11:23 S
[2023-02-06] MEDS: regadenoson 0.4 Mg/5 ml Syringe IVP (08:10)
[2023-02-06 08:55] VITALS: BP 128/85; PULSE 95
== END 2023-02-06 06:30 | disposition home or self-care (01) ==
PROVIDERS: PCP Family Medicine; Visit Provider Internal Medicine
DX: R07.9 Chest pain, unspecified (principal); R06.02 Shortness of breath
CPT/HCPCS: 36415; 78452; 93017; 96374; A9500; J2785

== ENCOUNTER 2023-02-11 20:00 | Outpatient (CLI) | payer BC, SELFPAY | END 2023-02-11 20:01 | disposition home or self-care (01) | LOC: SLEEP 02-12 04:39 | PROVIDERS: PCP Family Medicine; Visit Provider Family Medicine | DX: G47.33 Obstructive sleep apnea (adult) (pediatric) (principal); G47.10 Hypersomnia, unspecified; E03.9 Hypothyroidism, unspecified; I10 Essential (primary) hypertension | CPT/HCPCS: 95811 ==

== ENCOUNTER 2023-02-12 12:06 | Outpatient (CLI) | payer BC, SELFPAY ==
--- NOTE | 2023-02-12 12:30 | USCV_ITS ---
Rosalind Radha Age: 47 Gender: F : 1975 Exam Date: 02/12/2023 12:20 Ordering Phys: Jamie Batres M.D ([email or web address]) Technologist: HAYLEY [place] [facility] [place]ication: CHEST PAIN AND SOB BP: 131 / 55 HR: 86 Rhythm: Sinus Technical Quality: Very technically difficult study MEASUREMENTS (Male / Female) Normal Values 2D ECHO LV Diastolic Diameter PLAX 3.8 cm 4.2 - 5.9 / 3.9 - 5.3 cm LV Systolic Diameter PLAX 3.3 cm LV Chamber Size 3.0 cm IVS Diastolic Thickness 1.1 cm 0.6 - 1.0 / 0.6 - 0.9 cm IVS Systolic Thickness 1.4 cm LVPW Diastolic Thickness 1.3 cm 0.6 - 1.0 / 0.6 - 0.9 cm LVPW Systolic Thickness 1.6 cm RV Chamber Size 2.7 cm LVOT Diameter 2.0 cm LV Ejection Fraction 2D Teich 14.8 % LV Ejection Fraction MOD 2C 45.9 % LV Ejection Fraction 2C AL 44.3 % LA Diameter 3.0 cm LA Width 3.1 cm LA Height 3.3 cm RA Width 4.0 cm RA Height 2.5 cm Aorta at Sinotubular Diameter 2.6 cm M-MODE Aortic Annulus Diameter 3.1 cm LA Ao Ratio MM 1.2 MV E Point Septal Separation 0.6 cm DOPPLER AV Peak Velocity 124.0 cm/s LVOT Peak Velocity 80.0 cm/s AV Area Cont Eq vti 2.2 cm squared AV Area Cont Eq pk 2.1 cm squared MV Area PHT 4.8 cm squared Mitral E to A Ratio 1.0 MV E' Velocity 32.0 cm/s Mitral E to MV E' Ratio 6.0 Mitral E to LV E' Lateral Ratio 7.0 Mitral E to LV E' Septal Ratio 5.4 TR Peak Velocity 184.0 cm/s TR Peak Gradient 13.5 mmHg TR Mean Velocity 132.0 cm/s TR Mean Gradient 7.8 mmHg TR Velocity Time Integral 41.8 cm TV Peak E Velocity 53.0 cm/s Right Atrial Pressure 3.0 mmHg Pulmonary Artery Systolic Pressu 16.5 mmHg RV Acceleration Time 0.1 s RV Ejection Time 0.3 s RV AcT/ET 0.4 FINDINGS Left Ventricle Technically limited quality echocardiogram because of poor ultrasonic windows. Left ventricle is normal size. Grossly LV systolic function is normal. Regional wall motion abnormalities cannot be accurately assessed because of poor visualization of cardiac structures. Right Ventricle Grossly normal Right Atrium Normal in size Left Atrium Normal in size Mitral Valve Structurally normal mitral valve. Aortic Valve Structurally normal aortic valve. No significant stenosis or regurgitation. Tricuspid Valve Mild tricuspid regurgitation. Pulmonary artery systolic pressure is normal. Pulmonic Valve Not well-visualized Pericardium Normal Aorta Normal in size IVC Appears to be normal CONCLUSIONS Technically limited quality echocardiogram because of poor ultrasonic windows. Grossly LV systolic function is normal. Mild tricuspid regurgitation No comparison studies are available. Jamie Batres MD (Electronically Signed) Final Date: 16 February 2023 14:22 S
== END 2023-02-12 12:07 | disposition home or self-care (01) ==
PROVIDERS: PCP Family Medicine; Visit Provider Internal Medicine
DX: R07.9 Chest pain, unspecified (principal); R06.02 Shortness of breath; I07.1 Rheumatic tricuspid insufficiency
CPT/HCPCS: 93306

== ENCOUNTER 2023-02-20 23:12 | Emergency (ER) | payer BC, SELFPAY ==
[2023-02-20 23:30] VITALS: BP 141/104; PULSE 104; RESP 20; O2SAT 97; BMI 45.1
--- NOTE | 2023-02-20 23:44 | W.ED.NECK ---
HPI - Neck Pain/Injury General: Chief Complaint: Neck Pain/Injury Stated Complaint: Neck Pain Time Seen by Provider: 02/20/23 23:34 History of Present Illness: 47-year-old female presents to the emergency department with acute neck pain. She denies any traumatic injury but reports onset of neck pain this morning. Pain eventually radiated into her left arm but then improved leaving only the neck pain. She is unable to turn her neck due to the discomfort. She has not taken any medication prior to arrival. She does report current evaluation with cardiology and does report this pain radiated some into her left arm and her anterior chest. Denies any fever or chills. 1 episode of vomiting prior to arrival. No shortness of breath. Medical history includes hypertension, CAD. Associated symptoms: Denies headache(s) or nausea Review of Systems Const: Denies: fever(s) or chills Eyes: Denies: change in vision ENMT: Denies: throat pain or ear or mastoid pain Card: Reports: chest pain (Radiating from neck pain into the left anterior chest) Resp: Denies: dyspnea, productive cough or wheezing GI: Reports: vomiting; Denies: abdominal pain or nausea Musc: Reports: neck pain (Left lateral neck pain that radiates into the left arm and left anterior ch) Neuro: Denies: headache(s) PFSH ED PFSH: Medical History Acquired hypothyroidism Bipolar 2 disorder Essential (primary) hypertension GERD (gastroesophageal reflux disease) Grief at loss of child History of sleep study Menopausal syndrome (hot flashes) Migraine without aura and with status migrainosus, not intractable Nicotine dependence, cigarettes, with unspecified nicotine-induced disorders Obstructive sleep apnea Opioid contract exists Psychiatric care Seizure disorder Surgical History H/O section H/O knee surgery History of placement of ear tubes History of surgical removal of skin lesion hx lesion removal from lip Family History Father Diabetes Hypertension CAD (coronary artery disease) Grandfather CAD (coronary artery disease) Social History Smoking and tobacco status: current every day smoker cigarettes Packs smoked per day: 1 Alcohol intake: never Counseling given: No Substance/Drug Use: never Counseling given: No Physical Exam Const: COMMON NORMALS: patient oriented x3; apparent distress (In moderate distress) HENMT: COMMON NORMALS: normocephalic, atraumatic, external ears normal and moist oral mucous membranes HEAD & SCALP: normocephalic and atraumatic EXTERNAL EAR: Yes external ears normal Eye: COMMON NORMALS: conjunctivae normal CONJUNCTIVA: Yes conjunctivae normal Neck/C-Spine: COMMON NORMALS: negative for full ROM CERVICAL SPINE: Yes pain with cervical ROM, No Cervical spine tenderness, No step off deformity and Yes Trapezius muscle tenderness Resp: COMMON NORMALS: normal respiratory effort and clear to auscultation bilaterally; negative for No use of accessory muscles AUSCULTATION: clear to auscultation bilaterally Cardio: COMMON NORMALS: regular rate RATE: regular rate GI: COMMON NORMALS: Normal to inspection, nondistended, normoactive bowel sounds present Back/Pelvis: THORACIC SPINE/UPPER BACK: Yes normal to inspection Extremity: COMMON NORMALS: normal to inspection and full ROM Neuro: COMMON NORMALS: patient oriented x3 Course Vital Signs: Vital signs: Vital Signs Pulse Rate 90 02/21/23 00:11 Respiratory Rate 16 02/21/23 00:11 Blood Pressure 116/92 02/21/23 00:11 Pulse Oximetry 99 02/21/23 00:11 Oxygen Delivery Me thod Room Air 02/20/23 23:30 MDM - Neck Pain/Injury Medical Decision Making 47-year-old female presents to the emergency department with acute onset neck pain. Neck pain started this morning, radiated into her left arm but then that pain improved. She continued to have neck pain and now is unable to turn her neck due to the discomfort. She did have 1 episode of emesis prior to arrival. Denies any fever or chills. No other associated symptoms. Differential diagnosis includes meningitis, cervical strain, cervical fracture, musculoskeletal strain, STEMI On clinical exam she has point tenderness over the left sternocleidomastoid that radiates into the left lateral neck, anterior chest and down her left arm. This is reproducible pain. Range of motion is decreased due to discomfort. No indication for imaging as this is atraumatic. IM Toradol and Norflex provided while in the ED. After a period of approximately 45 minutes, patient had almost complete resolution of her neck discomfort and her range of motion was markedly improved. We will provide her some Flexeril for discharge. Recommended ibuprofen [id number] for the next several days. Follow-up with PCP as needed. No radiology studies performed this visit Discharge Plan Discharge Patient Disposition: Home Clinical Impression: Acute cervical myofascial strain Condition: Stable Prescriptions: New cyclobenzaprine 10 mg tablet 10 mg PO Q8H PRN (Reason: muscle spasm) Qty: 15 0RF No Action lorazepam [Ativan] 0.5 mg tablet 0.5 mg PO BID PRN (Reason: anxiety) Qty: 20 0RF Maxalt 10 mg tablet 10 mg PO .COMPLEX PRN (Reason: Migraine Headache) 30 Days Qty: 27 1RF Rx Instructions: 10 mg PO PRN; ropinirole 1 mg tablet 1 mg PO BID@0800,2100 90 Days Qty: 180 1RF sertraline [Zoloft] 100 mg tablet 100 mg PO DAILY Qty: 30 1RF lamotrigine [Lamictal] 100 mg tablet 100 mg PO DAILY Qty: 30 1RF (DME) Auto Titrating CPAP set to 12-16 with supplies See Rx Instructions .Route .MEDSUPPLY Qty: 1 0RF Rx Instructions: As directed chlorthalidone 25 mg tablet 25 mg PO .Q 8 AM simvastatin 20 mg tablet 20 mg PO .Q 9 PM lisinopril 10 mg tablet 10 mg PO .Q 8 AM Discharge Orders: Discharge ED (Routine); Ordered 02/21/23 Ordered By: Claire Rowe Referrals: Raina Bermeo PA [Primary Care Provider] - Discharge Diet: Usual diet Discharge Activity: Increase activity as tolerated Patient Instructions: Opioid Safety, Pain Management Activity Restrictions/Additional Instructions: May alternate Tylenol and ibuprofen every 3 hours as needed for pain. Take all medication with food. Take Flexeril as directed for muscle spasm. This medication will make you sleepy. Use ice or heat to your sore neck areas for pain control. Follow-up with your primary care provider. Return to the ER for any new or worsening problems. Coding Level of Care Code ED Drill Rig Operator Helper for Giovanny Altamirano
[2023-02-21] MEDS: orphenadrine 30 mg/mL Inj 2 mL 60 MG IM (00:04)
[2023-02-21] MEDS: ketorolac 60 mg/2 mL INJ IM (00:04)
[2023-02-21 00:11] VITALS: BP 116/92; PULSE 90; RESP 16; O2SAT 99
[2023-02-21 01:07] VITALS: BP 109/80; PULSE 94; RESP 16; O2SAT 96
== END 2023-02-21 01:09 | disposition home or self-care (01) ==
PROVIDERS: Emergency Provider Clinical Nurse Specialist Adult Health; PCP Physician Assistant
DX: S16.1XXA Strain of muscle, fascia and tendon at neck level, initial encounter (principal); F17.210 Nicotine dependence, cigarettes, uncomplicated; I10 Essential (primary) hypertension; X58.XXXA Exposure to other specified factors, initial encounter
CPT/HCPCS: 96372; 99284; J1885; J2360

== ENCOUNTER 2023-03-17 14:45 | Outpatient (CLI) | payer BC, SELFPAY ==
--- NOTE | 2023-03-17 15:28 | MM_ITS ---
WS: [id number] VIEWS: MLO and CC views both breasts. 3D digital tomosynthesis is also included in this exam. Comparison made with prior exam of 07/12/2019. Findings: There was no sign of mass, architectural distortion or suspicious calcification in either breast. The breasts are almost entirely fatty Impression: MM/[place] [id number] BI-RADS: 1-Negative FOLLOW-UP: 1 Year Follow-up This mammogram was also analyzed by the Computer Aided Detection System R2 Imag e Outpatient Coordinator.
== END 2023-03-17 14:46 | disposition home or self-care (01) ==
PROVIDERS: PCP Physician Assistant; Visit Provider Family Medicine
DX: Z12.31 Encounter for screening mammogram for malignant neoplasm of breast (principal)
CPT/HCPCS: 77063; 77067

== ENCOUNTER 2023-07-06 21:25 | Emergency (ER) | payer BC, SELFPAY ==
[2023-07-06 21:27] VITALS: PULSE 97; RESP 18; TEMP 36.6; O2SAT 100; BMI 47.6
[2023-07-06 21:33] VITALS: BP 133/81
--- NOTE | 2023-07-06 21:36 | ED_ITS ---
HPI - Neck Pain/Injury General: Chief Complaint: Neck Pain/Injury Stated Complaint: numbness in neck and left arm Time Seen by Provider: 07/06/23 21:34 History of Present Illness: 47-year-old female comes in today with l eft neck pain and numbness in her hand. Patient appears nontoxic. Patient reports pain is worse with movement of the neck. Patient appears mild pain and discomfort. Respirations are even. Patient has a history of diabetes, obesity, arrhythmia, and mental health disorder. Review of Systems General: Reports: 10 or more systems reviewed and unremarkable except in HPI and below Musc: Reports: neck pain PFSH ED PFSH: Medical History Acquired hypothyroidism Bipolar 2 disorder Essential (primary) hypertension GERD (gastroesophageal reflux disease) Grief at loss of child History of sleep study Menopausal syndrome (hot flashes) Migraine without aura and with status migrainosus, not intractable Nicotine dependence, cigarettes, with unspecified nicotine-induced disorders Obstructive sleep apnea Opioid contract exists Psychiatric care Seizure disorder Surgical History H/O section H/O knee surgery History of placement of ear tubes History of surgical removal of skin lesion hx lesion removal from lip Family History Father Diabetes Hypertension CAD (coronary artery disease) Grandfather CAD (coronary artery disease) Social History Smoking and tobacco/nicotine status: current every day tobacco/nicotine user cigarettes Packs smoked per day: 1 Alcohol intake: never Substance/Drug Use: never Physical Exam Const: COMMON NORMALS: alert HENMT: COMMON NORMALS: normocephalic HEAD & SCALP: normocephalic Neck/C-Spine: COMMON NORMALS: full ROM CERVICAL SPINE: Yes Paracervical muscle tenderness left (Left trapezius) Resp: COMMON NORMALS: normal respiratory effort and clear to auscultation bilaterally AUSCULTATION: clear to auscultation bilaterally Cardio: COMMON NORMALS: regular rate RATE: regular rate Back/Pelvis: COMMON NORMALS: thoracic and lumbar spine normal to inspection Extremity: COMMON NORMALS: full ROM Neuro: SENSORIUM/ORIENTATION: Yes alert Skin: COMMON NORMALS: turgor normal GENERAL SKIN EXAM: turgor normal Course Vital Signs: Vital signs: Vital Signs Temperature 97.9 F 07/06/23 21:27 Pulse Rate 97 07/06/23 21:27 Respiratory Rate 18 07/06/23 21:27 Blood Pressure 133/81 07/06/23 21:33 Pulse Oximetry 100 07/06/23 21:27 Oxygen Delivery Me thod Room Air 07/06/23 21:27 MDM - Neck Pain/Injury Medical Decision Making 47-year-old female comes in today with left neck pain. Patient has decreased range of motion to the right patient is on the left side of her neck. Patient has some tenderness in the left trapezius. Distal pulses and sensation are intact. No obvious injury. Patient reports no falls. Skin is warm and dry. Vital signs are normal. Differential diagnosis includes not limited to cervical muscle strain, intervertebral disc disease, facet arthropathy. X-ray of the cervical spine was unremarkable. Patient was given some Toradol and orphenadrine with some relief of pain and discomfort. Patient was then given 1 hydrocodone to take when she gets home so she could rest better at night. Patient kept on diclofenac. Exam is being otherwise for pain and inflammation. Patient was recommended to follow-up with primary care for further treatment and evaluation. XR interpretation done by ED provider, pending radiology final review Discharge Plan Discharge Patient Disposition: Home Clinical Impression: Strain of neck muscle Qualifiers: Encounter type: initial encounter Qualified Code(s): S16.1XXA - Strain of muscle, fascia and tendon at neck level, initial encounter Condition: Stable Prescriptions: New diclofenac sodium 75 mg tablet,delayed release (DR/EC) 75 mg PO BID Qty: 20 0RF tizanidine 4 mg tablet 4 mg PO Q8H PRN (Reason: muscle spasticity) Qty: 15 0RF No Action lorazepam [Ativan] 0.5 mg tablet 0.5 mg PO BID PRN (Reason: anxiety) Qty: 20 0RF isosorbide mononitrate 30 mg tablet extended release 24 hr 30 mg PO DAILY Qty: 90 3RF Maxalt 10 mg tablet 10 mg PO .COMPLEX PRN (Reason: Migraine Headache) 30 Days Qty: 27 1RF Rx Instructions: 10 mg PO PRN; ropinirole 1 mg tablet 1 mg PO BID@0800,2100 90 Days Qty: 180 1RF Ozempic 1 mg/dose (4 mg/3 mL) pen injector SUBCUT lamotrigine [Lamictal] 100 mg tablet 100 mg PO DAILY Qty: 30 1RF sertraline [Zoloft] 100 mg tablet 100 mg PO DAILY Qty: 30 1RF zolpidem [Ambien] 5 mg tablet 5 mg PO .HS Qty: 30 1RF (DME) Auto Titrating CPAP set to 12-16 with supplies See Rx Instructions .Route .MEDSUPPLY Qty: 1 0RF Rx Instructions: As directed lisinopril 10 mg tablet 10 mg PO .Q 8 AM chlorthalidone 25 mg tablet 50 mg PO .Q 8 AM Discharge Orders: Discharge ED (Routine); Ordered 07/06/23 Ordered By: Rogelio Chan Referrals: Raina Bermeo PA [Primary Care Provider] - Discharge Diet: Usual diet Discharge Activity: Increase activity as tolerated Patient Instructions: Opioid Safety, Pain Management Activity Restrictions/Additional Instructions: Activity as tolerated. Gentle stretching and range of motion exercises of the neck. Muscle rub to the neck for further pain relief. Follow-up with primary care for further instructions. Return to ED for new concerns. Use tizanidine as needed for muscle spasms of the neck. Use diclofenac for pain and inflammation. Do not use ibuprofen or naproxen with diclofenac. You may use acetaminophen for further pain relief. Coding Level of Care Code ED Database Manager for Giovanny Altamirano
[2023-07-06] MEDS: orphenadrine 30 mg/mL Inj 2 mL 60 MG IM (22:13)
[2023-07-06] MEDS: ketorolac 30 mg/mL INJ IM (22:13)
--- NOTE | 2023-07-06 22:27 | XRR_ITS ---
PROCEDURE INFORMATION: Exam: XR Cervical Spine Exam date and time: 07/06/2023 10:30 PM Age: 47 years old Clinical indication: Patient HX: Neck pain radiating to left upper ext. TECHNIQUE: Imaging protocol: Radiologic exam of the cervical spine. Views: 2 or 3 views. COMPARISON: CR XR chest 2V* [id number] 04/01/2023 1:36 PM FINDINGS: Bones/joints: All 7 cervical vertebrae in the 1st thoracic vertebra were visualized in frontal and lateral projections. Vertebral body heights are normal throughout. Alignment is normal. No significant degenerative change. Incidental note made of advanced dental decay. Soft tissues: Prevertebral soft tissues are normal in thickness. XR/XR cervical spine 3V* [id number] IMPRESSION: No acute cervical spine abnormality.
[2023-07-06] MEDS: HYDROcodone-acetaminophen 10-325 mg Tablet 1 TAB PO (23:06)
[2023-07-06 23:12] VITALS: BP 164/89; PULSE 89; RESP 18; O2SAT 97
== END 2023-07-06 23:11 | disposition home or self-care (01) ==
PROVIDERS: Emergency Provider Nurse Practitioner Family; PCP Physician Assistant
DX: S16.1XXA Strain of muscle, fascia and tendon at neck level, initial encounter (principal); F17.210 Nicotine dependence, cigarettes, uncomplicated; I10 Essential (primary) hypertension; X58.XXXA Exposure to other specified factors, initial encounter
CPT/HCPCS: 72040; 96372; 99284; J1885; J2360

== ENCOUNTER 2023-10-14 08:56 | Outpatient (CLI) | payer BC, SELFPAY ==
[2023-10-14 09:11] VITALS: PULSE 82; RESP 18; O2SAT 98
[2023-10-14] MEDS: albuterol 2.5 mg/3 mL Neb INHALATION (09:11)
[2023-10-14 09:16] VITALS: PULSE 85
== END 2023-10-14 08:57 | disposition home or self-care (01) ==
LOC: RT 08:59
PROVIDERS: PCP Physician Assistant; Visit Provider Internal Medicine
DX: R06.09 Other forms of dyspnea (principal); J98.4 Other disorders of lung; R94.2 Abnormal results of pulmonary function studies
CPT/HCPCS: 94060; 94726; 94729; J7613

== ENCOUNTER 2023-11-04 15:21 | Outpatient (CLI) | payer BC, SELFPAY ==
--- NOTE | 2023-11-04 15:45 | CT_ITS ---
WS: [id number] CT chest wo con [id number] HISTORY: RESTRICTIVE LUNG DISEASE TECHNIQUE: Axial imaging performed through the thorax. Coronal and sagittal reformats are submitted. All CT [facility] at [facility] use at least one of these dose optimization techniques: automated exposure control; mA and/or kV adjustment per patient size (includes targeted exams where dose is mat ched to clinical indication); or iterative reconstruction. CONTRAST: None DLP: 874.26 mGy.cm COMPARISON: Chest radiograph 10/23/2023 Study is compromised by body habitus. Lungs and central airway: Hazy attenuation throughout both lungs along with breathing motion artifact . 6 mm partially calcified granuloma LEFT lung base, image 43 series 4. Subcentimeter nodules in the RIGHT upper lobe. There are additional 6 very small nodules bilaterally. RIGHT middle lobe nodule 6 m m. 5 mm RIGHT lower lobe nodule. Pleura: Normal. No pleural effusion. Heart and pericardium: Normal size heart with no pericardial effusion. Mediastinum and brien: There is several mediastinal and hilar lymph nodes. Hilar regions are suboptima lly evaluated without IV contrast. The lymph nodes that are visualized measure up to 11 mm. Vessels: Normal size aortic and pulmonary artery. No coronary artery calcifications. Chest wall and lower neck: No soft tissue masses. Upper abdomen: Hepatic steatosis. Prior cholecystectomy. No adrenal mass. Osseous structures: No destructive process. Mild RIGHT curvature thoracic spine. CT/CT chest wo con [id number] IMPRESSION: 1. Groundglass hazy attenuation throughout both lungs with multiple subcentime ter bilateral pulmonary nodules. Consider hypersensitivity pneumonia/pneumoniti s. 2. Mediastinal and hilar lymph nodes. Lymph nodes at the hilum cannot be adequ ately evaluated without IV contrast. 3. Recommend follow-up chest CT in 3 months with IV contrast to reevaluate the lymph nodes and also the lung disease for any progression. 4. Prior cholecystectomy.
== END 2023-11-04 15:22 | disposition home or self-care (01) ==
LOC: RAD 15:25
PROVIDERS: PCP Physician Assistant; Visit Provider Physician Assistant
DX: R91.8 Other nonspecific abnormal finding of lung field (principal); Z87.09 Personal history of other diseases of the respiratory system; R59.0 Localized enlarged lymph nodes; K76.0 Fatty (change of) liver, not elsewhere classified; Z90.49 Acquired absence of other specified parts of digestive tract
CPT/HCPCS: 71250

== ENCOUNTER 2024-03-23 12:15 | Outpatient (CLI) | payer BC, SELFPAY ==
--- NOTE | 2024-03-23 12:19 | CT_ITS ---
WS: [id number] CT chest w con* [id number] HISTORY: PNEUMONITIS TECHNIQUE: Axial imaging performed through the thorax. Coronal and sagittal reformats are submitted. All CT scans at [facility] use at least one of these dose optimization techniques: automated exposure control; mA and/or kV adjustment per patient size (includes targeted exams where dose is mat ched to clinical indication); or iterative reconstruction. CONTRAST: Omnipaque 350; 100 mL IV. DLP: 663.46 mGy.cm COMPARISON: 11/04/2023 Lungs and central airway: Mild improvement in the overall hazy attenuation of groundglass since 2023. Subcentimeter nodules in the LEFT upper lobe towards the apex and at the LEFT lung base are sta ble. There are no new masses. Subcentimeter nodules in the RIGHT upper lobe have resolved. No dense c onsolidation. Pleura: Normal. No pleural effusion. Heart and pericardium: Normal size heart with no pericardial effusion. Mediastinum and brien: No mediastinum or hilar adenopathy. Vessels: Normal size aorta and pulmonary artery. No coronary artery calcifications. Bovine arch. Chest wall and lower neck: No soft tissue masses. Upper abdomen: Mild hepatic steatosis. No adrenal mass. Osseous structures: No destructive process. CT/CT chest w con* [id number] IMPRESSION: 1. No pneumonia or dense consolidation. 2. Mild persistent but mildly improved groundglass attenuation since the prior study. The pulmonary nodules have either resolved or stayed the same. Differen tial includes hypersensitivity pneumonia and bronchitis related to smoking. 3. No adenopathy.
[2024-03-23] MEDS: iohexol 350 mg/mL 500 mL Btl (per mL) IV (12:44)
== END 2024-03-23 12:16 | disposition home or self-care (01) ==
LOC: RAD 12:16
PROVIDERS: PCP Physician Assistant; Visit Provider Physician Assistant
DX: J18.9 Pneumonia, unspecified organism (principal); R91.8 Other nonspecific abnormal finding of lung field
CPT/HCPCS: 71260

== ENCOUNTER 2024-04-13 22:35 | Emergency (ER) | payer BC, SELFPAY ==
[2024-04-13 22:44] VITALS: BP 135/87; PULSE 90; RESP 18; TEMP 36.8; O2SAT 97; BMI 46.3
[2024-04-13 22:48] VITALS: BP 120/82; PULSE 89; O2SAT 99
--- NOTE | 2024-04-13 23:13 | XRR_ITS ---
PROCEDURE INFORMATION: Exam: XR Chest Exam date and time: 04/13/2024 11:43 PM Age: 48 years old Clinical indication: Shortness of breath; Additional info: Feels like something is stuck in throat TECHNIQUE: Imaging protocol: Radiologic exam of the chest. Views: 1 view. COMPARISON: CT chest w con* [id number] 03/23/2024 12:36 PM FINDINGS: Lungs: Poor inspiratory effort. No gross consolidations. Pleural spaces: Unremarkable. No pleural effusion. No pneumothorax. Heart/Mediastinum: Mild apparent cardiomegaly. Bones/joints: Unremarkable. XR/XR chest 1V portable [id number] IMPRESSION: 1. No radiopaque foreign body. 2. No acute cardiopulmonary process.
--- NOTE | 2024-04-13 23:13 | XRR_ITS ---
PROCEDURE INFORMATION: Exam: XR Right Elbow Exam date and time: 04/13/2024 11:44 PM Age: 48 years old Clinical indication: Pain; Elbow; Right; Additional info: Elbow pain TECHNIQUE: Imaging protocol: Radiologic exam of the right elbow. Views: 3 or more views. COMPARISON: No relevant prior studies available. FINDINGS: Bones/joints: No elbow joint effusion. No acute fracture or dislocation. Mild degenerative disease of the elbow joint. Soft tissues: Normal. XR/XR elbow RT min 3V* [id number] IMPRESSION: No acute fracture or dislocation.
--- NOTE | 2024-04-13 23:41 | W.ED.GENADLT ---
HPI - General Adult General: Chief complaint: Airway/Esophagus Foreign Body Stated complaint: Something Stuck In Throat Time Seen by Provider: 04/13/24 23:11 Source: patient Mode of arrival: ambulatory Limitations: no limitations History of Present Illness: Patient is a 48-year-old female present to the emergency department complaining of a scratchy throat for the past month, also some right elbow pain she has been having chronically and wants checked out. 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 Denies any ingestion or aspiration with her scratchy throat, also denies any history of allergies. Has not taken anything for her symptoms. No other symptoms reported at this time. MD complaint: Scratchy throat, right elbow pain Associated symptoms: Deny chest pain, dyspnea, headache(s), nausea, rash, palpitations or vomiting Related Data Home Medications Medication Instructions Recorded Confirmed semaglutide 1 mg/dose (4 mg/3 mL) mg SUBCUT 06/20/23 04/07/24 subcutaneous pen injector (Ozempic) metoprolol tartrate 25 mg tablet 25 mg PO DAILY 10/02/23 04/07/24 potassium chloride 20 mEq 20 meq PO DAILY 12/10/23 04/07/24 tablet,extended release Previous Rx's Medication Instructions Recorded rizatriptan 10 mg tablet (Maxalt) 10 mg PO .COMPLEX PRN Migraine 06/04/22 Headache 30 days #27 tabs ropinirole 1 mg tablet 1 mg PO BID@0800,2100 90 days #180 10/10/22 tabs lorazepam 0.5 mg tablet (Ativan) 0.5 mg PO BID PRN anxiety #20 tabs 11/05/22 Auto Titrating CPAP set to 12-16 #1 ea 02/18/23 with supplies zolpidem 5 mg tablet (Ambien) 5 mg PO .HS #30 tabs 06/20/23 diclofenac sodium 75 mg 75 mg PO BID #20 tabs 07/06/23 tablet,delayed release tizanidine 4 mg tablet 4 mg PO Q8H PRN muscle spasticity 07/06/23 #15 tabs lamotrigine 100 mg tablet 100 mg PO DAILY #30 tabs 01/05/24 (Lamictal) sertraline 100 mg tablet (Zoloft) 100 mg PO DAILY #30 tabs 01/15/24 ranolazine 500 mg tablet,extended See Rx Instructions .Route 04/07/24 release,12 hr .COMPLEX #180 tabs fluticasone propionate 50 1 spray intranasal BID PRN allergy 04/13/24 mcg/actuation nasal symptoms #16 grams spray,suspension (Flonase Allergy Relief) Allergies Allergy/AdvReac Type Severity Reaction Status Date / Time chlorhexidine Allergy itchy Verified 04/07/24 10:16 [From Sy] Review of Systems General: Reports: 10 or more systems reviewed and unremarkable except in HPI and below Const: Denies: fever(s), chills or fatigue Eyes: Denies: change in vision ENMT: Reports: throat pain (Scratchy throat); Denies: ear or mastoid pain or nasal discharge Card: Denies: chest pain, palpitations, swelling of feet/ankles or lightheadedness Resp: Denies: dyspnea, productive cough or wheezing GI: Denies: abdominal pain, nausea, vomiting, diarrhea or constipation : Denies: flank pain, difficulty voiding, dysuria or urinary frequency Musc: Reports: joint pain (Right elbow); Denies: neck pain or back pain Skin/Breast: Denies: rash Neuro: Denies: headache(s), numbness in extremities or weakness in extremities PFSH ED PFSH: Medical History Opioid contract exists Obstructive sleep apnea History of sleep study Grief at loss of child Bipolar 2 disorder Psychiatric care Nicotine dependence, cigarettes, with unspecified nicotine-induced disorders Migraine without aura and with status migrainosus, not intractable Essential (primary) hypertension Menopausal syndrome (hot flashes) GERD (gastroesophageal reflux disease) Acquired hypothyroidism Seizure disorder Surgical History History of surgical removal of skin lesion hx lesion removal from lip History of placement of ear tubes H/O section H/O knee surgery Family History Father Diabetes Hypertension CAD (coronary artery disease) Grandfather CAD (coronary artery disease) Social History Smoking and tobacco/nicotine status: former use of tobacco/nicotine Alcohol intake: never Substance/Drug Use: never Physical Exam Const: COMMON NORMALS: no acute distress, patient oriented x3, no limitations, healthy appearing, alert and well nourished GENERAL APPEARANCE: cooperative and comfortable HENMT: COMMON NORMALS: normocephalic, atraumatic, hearing grossly normal bilaterally, Normal external nose present, Normal nasal mucous membranes and turbinates present, moist oral mucous membranes and oropharynx normal HEAD & SCALP: normocephalic and atraumatic NOSE: Normal external nose present and Normal nasal mucous membranes and turbinates present Resp: COMMON NORMALS: normal respiratory effort, No retractions, No use of accessory muscles and clear to auscultation bilaterally AUSCULTATION: clear to auscultation bilaterally Cardio: COMMON NORMALS: regular rate and regular rhythm RATE: regular rate RHYTHM: regular rhythm Extremity: NARRATIVE EXTREMITY EXAM: Right elbow examination unremarkable, other than some mild reproducible tenderness to palpation to the lateral epicondyle. Negative Tinel's sign of the wrist, negative Tinel sign of the ulnar tunnel. No joint swelling or signs of trauma or bruising. Neuro: COMMON NORMALS: patient oriented x3 SENSORIUM/ORIENTATION: Yes alert Course Vital Signs: Vital signs: Vital Signs Temperature 98.3 F 04/13/24 22:44 Pulse Rate 89 04/13/24 22:48 Respiratory Rate 18 04/13/24 22:44 Blood Pressure 120/82 04/13/24 22:48 Pulse Oximetry 99 04/13/24 22:48 Oxygen Delivery Me thod Room Air 04/13/24 22:48 MDM - General Adult Medical Decision Making Patient presented with a month of irritation to her throat, and worsening right elbow pain. No aspiration history, her x-ray was normal for any foreign body or other acute process In addition her x-ray of her right elbow was normal as well. Flonase will be prescribed for what is most likely a postnasal drip from allergies, and did encourage her to follow-up with primary care in regards to this as well as with her right elbow pain as this could resemble a lateral epicondylitis due to overuse. General return precautions were given, patient okay with discharge home at this time. Lab Data Radiology Impressions Chest X-Ray 04/13/24 23:13 IMPRESSION: 1. No radiopaque foreign body. 2. No acute cardiopulmonary process. Elbow X-Ray 04/13/24 23:13 IMPRESSION: No acute fracture or dislocation. All radiology interpretation(s) finalized by discharge Discharge Plan Discharge Patient Disposition: Home Clinical Impression: Post-nasal drip, Elbow pain, right Condition: Stable Prescriptions: New fluticasone propionate [Flonase Allergy Relief] 50 mcg/actuation spray,suspension 1 spray intranasal BID PRN (Reason: allergy symptoms) Qty: 16 0RF Rx Instructions: administer into each nostril No Action lorazepam [Ativan] 0.5 mg tablet 0.5 mg PO BID PRN (Reason: anxiety) Qty: 20 0RF ranolazine 500 mg tablet extended release 12 hr See Rx Instructions .ROUTE .COMPLEX Qty: 180 3RF Dose Instruction: TAKE 1 TABLET BY MOUTH TWICE DAILY Rx Instructions: TAKE 1 TABLET BY MOUTH TWICE DAILY potassium chloride 20 mEq tablet extended release 20 meq PO DAILY Maxalt 10 mg tablet 10 mg PO .COMPLEX PRN (Reason: Migraine Headache) 30 Days Qty: 27 1RF Rx Instructions: 10 mg PO PRN; ropinirole 1 mg tablet 1 mg PO BID@0800,2100 90 Days Qty: 180 1RF metoprolol tartrate 25 mg tablet 25 mg PO DAILY Ozempic 1 mg/dose (4 mg/3 mL) pen injector SUBCUT zolpidem [Ambien] 5 mg tablet 5 mg PO .HS Qty: 30 1RF (DME) Auto Titrating CPAP set to 12-16 with supplies See Rx Instructions .Route .MEDSUPPLY Qty: 1 0RF Rx Instructions: As directed lamotrigine [Lamictal] 100 mg tablet 100 mg PO DAILY Qty: 30 1RF sertraline [Zoloft] 100 mg tablet 100 mg PO DAILY Qty: 30 1RF diclofenac sodium 75 mg tablet,delayed release (DR/EC) 75 mg PO BID Qty: 20 0RF tizanidine 4 mg tablet 4 mg PO Q8H PRN (Reason: muscle spasticity) Qty: 15 0RF Discharge Orders: Discharge ED (Routine); Ordered 04/14/24 Ordered By: Nain Mercedes Referrals: Raina Bermeo PA [Primary Care Provider] - Activity Restrictions/Additional Instructions: Flonase as prescribed. Follow-up with primary care for reevaluation of the right elbow pain, may require an MRI. Tylenol/ibuprofen for pain. Ice, rest and recovery. Return with any new or worsening. Coding Level of Care Code ED Steward/Stewardess Bath for Giovanny Altamirano
[2024-04-14 00:42] VITALS: BP 145/57; PULSE 88; O2SAT 96
== END 2024-04-14 00:44 | disposition home or self-care (01) ==
PROVIDERS: Emergency Provider Physician Assistant; PCP Physician Assistant
DX: R09.82 Postnasal drip (principal); M25.521 Pain in right elbow; Z87.891 Personal history of nicotine dependence; I10 Essential (primary) hypertension
CPT/HCPCS: 71045; 73080; 99284

== ENCOUNTER 2024-04-18 18:30 | Emergency (ER) | payer BC, SELFPAY ==
[2024-04-18 18:34] VITALS: BP 148/85; PULSE 105; RESP 20; TEMP 36.8; O2SAT 95; BMI 46.3
--- NOTE | 2024-04-18 19:24 | XRR_ITS ---
PROCEDURE INFORMATION: Exam: XR Chest Exam date and time: 04/18/2024 7:28 PM Age: 48 years old Clinical indication: Other: HTN TECHNIQUE: Imaging protocol: Radiologic exam of the chest. Views: 1 view. COMPARISON: CR (CHEST, ) 04/13/2024 11:43 PM FINDINGS: Lungs: Unremarkable. No consolidation. Pleural spaces: Unremarkable. No pleural effusion. No pneumothorax. Heart/Mediastinum: Unremarkable. No cardiomegaly. Bones/joints: Unremarkable. XR/XR chest 1V portable [id number] IMPRESSION: No acute findings.
--- NOTE | 2024-04-18 19:25 | W.ED.GENADLT ---
HPI - General Adult General: Chief complaint: General Medical Stated complaint: BP High Time Seen by Provider: 04/18/24 19:17 History of Present Illness: Patient presents to the ER with complaints of high blood pressure. Patient said her blood pressures been going up since noon today. Patient checked it is 197/111. 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 Richards. Related Data Home Medications Medication Instructions Recorded Confirmed semaglutide 1 mg/dose (4 mg/3 mL) mg SUBCUT 06/20/23 04/07/24 subcutaneous pen injector (Ozempic) metoprolol tartrate 25 mg tablet 25 mg PO DAILY 10/02/23 04/07/24 potassium chloride 20 mEq 20 meq PO DAILY 12/10/23 04/07/24 tablet,extended release Previous Rx's Medication Instructions Recorded rizatriptan 10 mg tablet (Maxalt) 10 mg PO .COMPLEX PRN Migraine 06/04/22 Headache 30 days #27 tabs ropinirole 1 mg tablet 1 mg PO BID@0800,2100 90 days #180 10/10/22 tabs lorazepam 0.5 mg tablet (Ativan) 0.5 mg PO BID PRN anxiety #20 tabs 11/05/22 Auto Titrating CPAP set to 12-16 #1 ea 02/18/23 with supplies zolpidem 5 mg tablet (Ambien) 5 mg PO .HS #30 tabs 06/20/23 diclofenac sodium 75 mg 75 mg PO BID #20 tabs 07/06/23 tablet,delayed release tizanidine 4 mg tablet 4 mg PO Q8H PRN muscle spasticity 07/06/23 #15 tabs lamotrigine 100 mg tablet 100 mg PO DAILY #30 tabs 01/05/24 (Lamictal) sertraline 100 mg tablet (Zoloft) 100 mg PO DAILY #30 tabs 01/15/24 ranolazine 500 mg tablet,extended See Rx Instructions .Route 04/07/24 release,12 hr .COMPLEX #180 tabs fluticasone propionate 50 1 spray intranasal BID PRN allergy 04/13/24 mcg/actuation nasal symptoms #16 grams spray,suspension (Flonase Allergy Relief) ciprofloxacin HCl 500 mg tablet 500 mg PO Q12H #20 tabs 04/18/24 Allergies Allergy/AdvReac Type Severity Reaction Status Date / Time chlorhexidine Allergy itchy Verified 04/18/24 18:37 [From Sy] Review of Systems General: Reports: 10 or more systems reviewed and unremarkable except in HPI and below PFSH ED PFSH: Medical History Opioid contract exists Obstructive sleep apnea History of sleep study Grief at loss of child Bipolar 2 disorder Psychiatric care Nicotine dependence, cigarettes, with unspecified nicotine-induced disorders Migraine without aura and with status migrainosus, not intractable Essential (primary) hypertension Menopausal syndrome (hot flashes) GERD (gastroesophageal reflux disease) Acquired hypothyroidism Seizure disorder Surgical History History of surgical removal of skin lesion hx lesion removal from lip History of placement of ear tubes H/O section H/O knee surgery Family History Father Diabetes Hypertension CAD (coronary artery disease) Grandfather CAD (coronary artery disease) Social History Smoking and tobacco/nicotine status: former use of tobacco/nicotine Alcohol intake: never Substance/Drug Use: never Physical Exam Const: COMMON NORMALS: no acute distress, average body habitus, patient oriented x3, no limitations, healthy appearing, alert and well nourished HENMT: COMMON NORMALS: normocephalic, atraumatic, hearing grossly normal bilaterally, external ears normal, EAC's normal, Normal external nose present and moist oral mucous membranes HEAD & SCALP: normocephalic and atraumatic NOSE: Normal external nose present EXTERNAL EAR: Yes external ears normal EXTERNAL AUDITORY CANAL: EAC's normal Neck/C-Spine: COMMON NORMALS: full ROM, no lymphadenopathy, supple, no meningeal signs, no JVD and Thyroid normal THYROID: Thyroid normal Chest: COMMONS NORMALS: normal inspection of the chest and normal palpation of entire chest wall Resp: COMMON NORMALS: normal respiratory effort, No retractions, No use of accessory muscles and clear to auscultation bilaterally AUSCULTATION: clear to auscultation bilaterally Cardio: COMMON NORMALS: no JVD, regular rate, regular rhythm, S1 normal heart sound present, S2 normal heart sound present, No gallops present (Cardio), No clicks present (Cardio), No murmurs present (Cardio) and No rub (Cardio) RATE: regular rate RHYTHM: regular rhythm HEART SOUNDS: S1 normal heart sound present and S2 normal heart sound present GI: COMMON NORMALS: Normal to inspection, nondistended, normoactive bowel sounds present, Soft to palpation, non-tender, No hepatosplenomegaly present and no masses PALPATION: Yes Soft to palpation and Yes No hepatosplenomegaly present Neuro: COMMON NORMALS: patient oriented x3 SENSORIUM/ORIENTATION: Yes alert MENINGEAL SIGNS: Yes no meningeal signs Course Vital Signs: Vital signs: Vital Signs Temperature 98.2 F 04/18/24 18:34 Pulse Rate 91 04/18/24 21:06 Respiratory Rate 21 H 04/18/24 21:06 Blood Pressure 146/90 04/18/24 21:06 Pulse Oximetry 97 04/18/24 21:06 Oxygen Delivery Me thod Room Air 04/18/24 21:06 [facility] - General Adult Medical Decision Making Patient had serial chest x-rays, serial troponins, CBC CMP urinalysis, all which was essentially negative, UTI may be present in the urine however it was a contaminated specimen with 21-50 white blood cells however we will go ahead and treat. Patient be discharged home. Medical Records I reviewed the patient's medical records. Lab Data I reviewed the patient's lab results. 04/18/24 19:37 04/18/24 19:37 Radiology Impressions Chest X-Ray 04/18/24 19:24 IMPRESSION: No acute findings. Laboratory Results WBC 10.44 10^3/uL (3.29-11.43) 04/18/24 19:37 RBC 4.78 10^6/uL (3.85-5.65) 04/18/24 19:37 Hgb 14.30 g/dL (11.27-16.99) 04/18/24 19:37 Hct 44.0 % (36-47) 04/18/24 19:37 MCV 92.1 fl (85-98) 04/18/24 19:37 MCH 29.9 pg (27-33) 04/18/24 19:37 MCHC 32.5 g/dL (30-55) 04/18/24 19:37 RDW 13.3 % (12.1-15.1) 04/18/24 19:37 Plt Count 382 10^3/cmm (157-399) 04/18/24 19:37 MPV 8.4 fL (7.4-10.4) 04/18/24 19:37 Neut % (Auto) 75.4 % 04/18/24 19:37 Lymph % (Auto) 16.1 % 04/18/24 19:37 [place] % (Auto) 5.1 % 04/18/24 19:37 Eos % (Auto) 2.1 % 04/18/24 19:37 Baso % (Auto) 0.8 % 04/18/24 19:37 Neut # (Auto) 7.88 10^3/uL (1.8-7.7) H 04/18/24 19:37 Lymph # (Auto) 1.7 10^3/uL (0.8-4.8) 04/18/24 19:37 [place] # (Auto) 0.5 10^3/uL (0.2-0.9) 04/18/24 19:37 Eos # (Auto) 0.2 10^3/uL (0.0-0.8) 04/18/24 19:37 Baso # (Auto) 0.1 10^3/uL (0.0-0.1) 04/18/24 19:37 Nucleated RBC % (auto) 0 % 04/18/24 19:37 Nucleated RBCs # 0.0 /100WBC 04/18/24 19:37 Sodium 140 mmol/L (136-145) 04/18/24 19:37 Potassium 3.9 mmol/L (3.5-5.1) 04/18/24 19:37 Chloride 104 mmol/L (98-107) 04/18/24 19:37 Carbon Dioxide 24 mmol/L (22-29) 04/18/24 19:37 Anion Gap 15.9 (5-19) 04/18/24 19:37 BUN 9 mg/dL (6-20) 04/18/24 19:37 Creatinine 0.8 mg/dL (0.5-0.9) 04/18/24 19:37 GFR Calculation 77.2 mL/min (90-130) L 04/18/24 19:37 Glucose 99 mg/dL (65-115) 04/18/24 19:37 Calculated Osmolality 289 mOsm/kg (285-295) 04/18/24 19:37 Calcium 9.6 mg/dL (8.5-10.5) 04/18/24 19:37 Total Bilirubin 0.2 mg/dL (0.15-1.2) 04/18/24 19:37 AST 27 U/L (0-32) 04/18/24 19:37 ALT 26 U/L (0-33) 04/18/24 19:37 Alkaline Phosphatase 105 U/L (35-105) 04/18/24 19:37 Troponin T Baseline < 6 ng/L (0-10) 04/18/24 19:37 Troponin T 120 Minute 6.00 ng/L (0-10) 04/18/24 21:16 Delta Troponin T 0.33933 ABS# (0-10) 04/18/24 21:16 Total Protein 7.3 g/dL (6.6-8.7) 04/18/24 19:37 Albumin 4.1 g/dL (3.5-5.2) 04/18/24 19:37 Globulin 3.2 g/dL (1.3-4.6) 04/18/24 19:37 Urine Color Dark yellow (Yellow) A 04/18/24 19:56 Urine Appearance Clear (CLEAR) 04/18/24 19:56 Urine pH 5.5 (5-7) 04/18/24 19:56 Ur Specific [place] 1.030 (1.005-1.030) 04/18/24 19:56 Urine Protein 2+ (Negative) A 04/18/24 19:56 Urine Glucose (UA) Negative (Normal) 04/18/24 19:56 Urine Ketones Trace (Negative) 04/18/24 19:56 Urine Blood 2+ (Negative) A 04/18/24 19:56 Urine Nitrate Negative (Negative) 04/18/24 19:56 Urine Bilirubin Negative (Negative) 04/18/24 19:56 Urine Urobilinogen 1.0 mg/dL (Negative) 04/18/24 19:56 Ur Leukocyte Esterase 1+ (Negative) A 04/18/24 19:56 Urine RBC 11-20 /hpf (0-2) H 04/18/24 19:56 Urine WBC 11-20 /hpf (0-5) H 04/18/24 19:56 Ur Squamous Epith Cells 21-50 /hpf (0-5) 04/18/24 19:56 Calcium Oxalate Crystal 10-15 /hpf H 04/18/24 19:56 Amorphous Sediment Not Reportable 04/18/24 19:56 Urine Bacteria 3+ /hpf (NONE) H 04/18/24 19:56 Hyaline Casts 4.95 /lpf 04/18/24 19:56 Urine Mucus 3+ /hpf 04/18/24 19:56 No radiology studies performed this visit Discharge Plan Discharge Patient Disposition: Home Clinical Impression: Hypertension Qualifiers: Hypertension type: unspecified Qualified Code(s): I10 - Essential (primary) hypertension Urinary tract infection Qualifiers: Urinary tract infection type: acute cystitis Hematuria presence: with hematuria Qualified Code(s): N30.01 - Acute cystitis with hematuria Condition: Stable Prescriptions: New ciprofloxacin HCl 500 mg tablet 500 mg PO Q12H Qty: 20 0RF No Action lorazepam [Ativan] 0.5 mg tablet 0.5 mg PO BID PRN (Reason: anxiety) Qty: 20 0RF ranolazine 500 mg tablet extended release 12 hr See Rx Instructions .ROUTE .COMPLEX Qty: 180 3RF Dose Instruction: TAKE 1 TABLET BY MOUTH TWICE DAILY Rx Instructions: TAKE 1 TABLET BY MOUTH TWICE DAILY potassium chloride 20 mEq tablet extended release 20 meq PO DAILY Maxalt 10 mg tablet 10 mg PO .COMPLEX PRN (Reason: Migraine Headache) 30 Days Qty: 27 1RF Rx Instructions: 10 mg PO PRN; ropinirole 1 mg tablet 1 mg PO BID@0800,2100 90 Days Qty: 180 1RF metoprolol tartrate 25 mg tablet 25 mg PO DAILY Ozempic 1 mg/dose (4 mg/3 mL) pen injector SUBCUT zolpidem [Ambien] 5 mg tablet 5 mg PO .HS Qty: 30 1RF (DME) Auto Titrating CPAP set to 12-16 with supplies See Rx Instructions .Route .MEDSUPPLY Qty: 1 0RF Rx Instructions: As directed lamotrigine [Lamictal] 100 mg tablet 100 mg PO DAILY Qty: 30 1RF sertraline [Zoloft] 100 mg tablet 100 mg PO DAILY Qty: 30 1RF diclofenac sodium 75 mg tablet,delayed release (DR/EC) 75 mg PO BID Qty: 20 0RF tizanidine 4 mg tablet 4 mg PO Q8H PRN (Reason: muscle spasticity) Qty: 15 0RF fluticasone propionate [Flonase Allergy Relief] 50 mcg/actuation spray,suspension 1 spray intranasal BID PRN (Reason: allergy symptoms) Qty: 16 0RF Rx Instructions: administer into each nostril Discharge Orders: Discharge ED (Routine); Ordered 04/18/24 Ordered By: Andres Sutton Referrals: Raina Bermeo PA [Primary Care Provider] - 1 week Patient Instructions: Hypertension (ED), Urinary Tract Infection - Women Activity Restrictions/Additional Instructions: Your evaluation ER included chest x-ray, blood work and urine all come back normal with the exception of your urine may have showed a urinary tract infection. He was a contaminated specimen with more skin cells than normal however it also had more bacteria than normal. He had been sent in a antibiotic to the pharmacy please take it as directed please follow-up with your family practitioner within the next 7 days for further evaluation and treatment as needed. Coding Level of Care Code ED Mining Captain for Giovanny Altamirano
--- NOTE | 2024-04-18 19:41 | ECG_ITS ---
[facility] Date[facility] 2024-04-18 Pat Name: Radha Boyer Department: Room: Gender: Female Foot Miter Operator: : 1975 Requested By: Kory Leija Order Number: [id number] Reading MD: GEOVANY GILMORE Measurements Intervals [place] Rate: 95 P: 54 OR: 163 QRS: 32 QRSD: 101 T: -11 QT: 371 QTc: 468 Interpretive Statements SINUS RHYTHM MODERATE T-WAVE ABNORMALITY, CONSIDER ANTERIOR ISCHEMIA [-0.1+ mV T-WAVE IN V3/V4] Compared to ECG 01/01/2023 11:24:18 Possible ischemia now present T-wave abnormality still present Electronically Signed On 04-19-2024 18:55:55 CHIROPRACTOR ASSISTANT by GEOVANY GILMORE [email or web address]
[2024-04-18 19:44] LABS: Basophils # 0.1 10^3/uL (0.0-0.1); Basophils % 0.8 %; Eosinophils # 0.2 10^3/uL (0.0-0.8); Eosinophils % 2.1 %; Lymphocytes # 1.7 10^3/uL (0.8-4.8); Lymphocytes % 16.1 %; Mean Corpuscular HGB Conc 32.5 g/dL (30-55); Mean Corpuscular Hemoglobin 29.9 pg (27-33); Mean Corpuscular Volume 92.1 fl (85-98); Mean Platelet Volume 8.4 fL (7.4-10.4); Monocytes # 0.5 10^3/uL (0.2-0.9); Monocytes % 5.1 %; Neutrophils # 7.88 10^3/uL (1.8-7.7); Neutrophils % 75.4 %; Nucleated Red Blood Cells % 0 %; Platelet Count 382 10^3/cmm (157-399); Red Blood Count 4.78 10^6/uL (3.85-5.65); Red Cell Distribution Width 13.3 % (12.1-15.1); White Blood Count 10.44 10^3/uL (3.29-11.43)
[2024-04-18 19:47] VITALS: BP 149/98; PULSE 103; RESP 22; O2SAT 97
[2024-04-18 20:06] LABS: Bilirubin Urine Negative (Negative); Blood Urine 2+ (Negative); Glucose Urine UA Negative (Normal); Ketones Urine Trace (Negative); Leukocyte Esterase Urine 1+ (Negative); Nitrate Urine Negative (Negative); Protein Urine 2+ (Negative); Urine Appearance Clear (CLEAR); Urine Color Dark Yellow (Yellow); pH Urine 5.5 (5-7)
[2024-04-18 20:10] LABS: Alanine Aminotransferase 26 U/L (0-33); Albumin Level 4.1 g/dL (3.5-5.2); Alkaline Phosphatase 105 U/L (35-105); Anion Gap 15.9 (5-19); Aspartate Amino Transferase 27 U/L (0-32); Blood Urea Nitrogen 9 mg/dL (6-20); Calcium 9.6 mg/dL (8.5-10.5); Carbon Dioxide 24 mmol/L (22-29); Chloride 104 mmol/L (98-107); Creatinine Clr Calc Pharmacy 138.3047; Globulin 3.2 g/dL (1.3-4.6); Glomerular Filtration Rate 77.2 mL/min (90-130); Glucose 99 mg/dL (65-115); Osmolality Calculated 289 mOsm/kg (285-295); Potassium 3.9 mmol/L (3.5-5.1); Sodium 140 mmol/L (136-145); Total Bilirubin 0.2 mg/dL (0.15-1.2); Total Protein 7.3 g/dL (6.6-8.7); Troponin(5th) Baseline < 6 ng/L (0-10)
[2024-04-18 20:12] LABS: Add Urine Microscopic? YES; Bacteria Urine 3+ /hpf; Hyaline Casts Urine 4.95 /lpf; Squamous Epithelial Cell Urine 21-50 /hpf (0-5); Universal Test for UA Present (0)
[2024-04-18 20:30] VITALS: BP 136/89; PULSE 93; O2SAT 96
[2024-04-18 20:32] LABS: Add Urine Culture? No; Mucus Urine 3+ /hpf
[2024-04-18 21:06] VITALS: BP 146/90; PULSE 91; RESP 21; O2SAT 97
--- NOTE | 2024-04-18 21:16 | ECG_ITS ---
[facility] Test Date: 2024-04-18 Pat Name: Radha Boyer Department: Room: Gender: Female Instructional Media Services Technician: : 1975 Requested By: Andres Sutton Order Number: [id number] Reading MD: GEOVANY GILMORE Measurements Intervals [place] Rate: 86 P: 60 ND: 167 QRS: 45 QRSD: 101 T: -3 QT: 378 QTc: 452 Interpretive Statements SINUS RHYTHM ST DEVIATION AND MODERATE T-WAVE ABNORMALITY, CONSIDER ANTERIOR ISCHEMIA [-0.1+ mV T-WAVE IN V3/V4] Compared to ECG 04/18/2024 19:41:29 No significant changes Electronically Signed On 04-19-2024 19:30:18 DIGITAL AD TRAFFICKER by GEOVANY GILMORE [id number]
[2024-04-18 21:41] LABS: Troponin 5 2HR Delta 0.00001 ABS# (0-10)
[2024-04-18] MEDS: ciprofloxacin 500 mg Tablet PO (21:49)
[2024-04-18 21:50] VITALS: BP 130/80; PULSE 91; RESP 20; O2SAT 97
[2024-04-18 21:57] VITALS: BP 130/80; PULSE 95; O2SAT 96
== END 2024-04-18 21:58 | disposition home or self-care (01) ==
PROVIDERS: Emergency Provider Emergency Medicine; PCP Physician Assistant
DX: I10 Essential (primary) hypertension (principal); N30.01 Acute cystitis with hematuria; Z87.891 Personal history of nicotine dependence
CPT/HCPCS: 36415; 71045; 80053; 81001; 84484; 85025; 93005; 99285

== ENCOUNTER → 2024-05-14 08:46 | Outpatient (BNVA) | payer BC, SELFPAY | PROVIDERS: PCP Physician Assistant; Visit Provider Nurse Practitioner Family | DX: I10 Essential (primary) hypertension (principal) | CPT/HCPCS: 93005 ==

== ENCOUNTER → 2024-05-17 08:58 | Outpatient (BNVA) | payer BC, SELFPAY | PROVIDERS: PCP Physician Assistant; Visit Provider Obstetrics & Gynecology | DX: N93.9 Abnormal uterine and vaginal bleeding, unspecified (principal) | CPT/HCPCS: 83001; 84146; 84443; 84702; 85025 ==

== ENCOUNTER 2024-06-16 15:58 | Emergency (ER) | payer BC, SELFPAY ==
[2024-06-16 16:28] VITALS: BP 124/74; PULSE 83; RESP 18; TEMP 36.7; O2SAT 100; BMI 46.3
--- NOTE | 2024-06-16 18:31 | W.ED.EAR ---
HPI - Ear Problem General: Chief complaint: Ear Stated complaint: left ear pain area Time Seen by Provider: 06/16/24 18:15 Source: patient Mode of arrival: ambulatory Limitations: no limitations History of Present Illness: Patient is a 48-year-old female who presents the emergency department complaining of left ear pain, onset couple of days. Patient states she has a history of migraines, this feels somewhat similar but wants to make sure she does not have an infection. Denies any fever, nausea/vomiting, hearing changes, discharge or bleeding from the ear, or other concerning symptoms. She has not taken anything for the pain. States that in the past she has been seen here in the emergency department for migraines and receives medications, she also is on medications for migraines. No posterior ear pain reported. MD Complaint: ear pain Location: left ear Duration: constant Severity: mild Discharge from ear: no Associated symptoms: Reports ear or mastoid pain and headache(s); Denies fever(s) or neck pain Treatment prior to arrival: other (Migraine medication) Related Data Home Medications Medication Instructions Recorded Confirmed metoprolol tartrate 25 mg tablet 25 mg PO DAILY 10/02/23 05/17/24 potassium chloride 20 mEq 20 meq PO DAILY 12/10/23 05/17/24 tablet,extended release pantoprazole 40 mg tablet,delayed mg PO 05/06/24 05/17/24 release ranolazine 500 mg tablet,extended 500 mg PO BID 05/14/24 05/17/24 release,12 hr meloxicam 7.5 mg tablet mg PO 05/17/24 05/17/24 tirzepatide 10 mg/0.5 mL mg SUBCUT 05/17/24 05/17/24 subcutaneous pen injector (Sherry) Previous Rx's Medication Instructions Recorded rizatriptan 10 mg tablet (Maxalt) 10 mg PO .COMPLEX PRN Migraine 06/04/22 Headache 30 days #27 tabs ropinirole 1 mg tablet 1 mg PO BID@0800,2100 90 days #180 10/10/22 tabs lorazepam 0.5 mg tablet (Ativan) 0.5 mg PO BID PRN anxiety #20 tabs 11/05/22 Auto Titrating CPAP set to 12-16 #1 ea 02/18/23 with supplies tizanidine 4 mg tablet 4 mg PO Q8H PRN muscle spasticity 02/11/24 #15 tabs lamotrigine 100 mg tablet 100 mg PO DAILY #30 tabs 01/05/24 (Lamictal) sertraline 100 mg tablet (Zoloft) 100 mg PO DAILY #30 tabs 01/15/24 fluticasone propionate 50 1 spray intranasal BID PRN allergy 04/13/24 mcg/actuation nasal symptoms #16 grams spray,suspension (Flonase Allergy Relief) Allergies Allergy/AdvReac Type Severity Reaction Status Date / Time chlorhexidine Allergy itchy Verified 05/17/24 07:31 [From [facility]] Review of Systems General: Reports: 10 or more systems reviewed and unremarkable except in HPI and below Const: Denies: fever(s), chills or fatigue Eyes: Denies: change in vision ENMT: Reports: ear or mastoid pain; Denies: throat pain, ear discharge, change in hearing or nasal discharge Card: Denies: chest pain, palpitations, swelling of feet/ankles or lightheadedness Resp: Denies: dyspnea, productive cough or wheezing GI: Denies: abdominal pain, nausea, vomiting, diarrhea or constipation : Denies: flank pain, difficulty voiding, dysuria or urinary frequency Musc: Denies: neck pain, back pain or joint pain Skin/Breast: Denies: rash Neuro: Reports: headache(s); Denies: numbness in extremities or weakness in extremities PFSH ED PFSH: Medical History Opioid contract exists Obstructive sleep apnea History of sleep study Grief at loss of child Bipolar 2 disorder Psychiatric care Nicotine dependence, cigarettes, with unspecified nicotine-induced disorders Migraine without aura and with status migrainosus, not intractable Essential (primary) hypertension Menopausal syndrome (hot flashes) GERD (gastroesophageal reflux disease) Acquired hypothyroidism Seizure disorder Surgical History History of surgical removal of skin lesion hx lesion removal from lip History of placement of ear tubes H/O section H/O knee surgery Family History Father Diabetes Hypertension CAD (coronary artery disease) Hyperlipidemia Heart disease Grandfather CAD (coronary artery disease) Sister Diabetes Thyroid disease Social History Smoking and tobacco/nicotine status: current every day tobacco/nicotine user (5 cigarettes daily) cigarettes Packs smoked per day: 1 Alcohol intake: never Substance/Drug Use: never Physical Exam Const: COMMON NORMALS: no acute distress, patient oriented x3 and no limitations GENERAL APPEARANCE: cooperative, comfortable and well developed ORIENTATION/CONSCIOUSNESS: Yes awake HENMT: COMMON NORMALS: normocephalic, atraumatic, hearing grossly normal bilaterally, external ears normal, EAC's normal, TM's normal bilaterally and Normal external nose present HEAD & SCALP: normocephalic and atraumatic FACE & SINUS: normal facial exam NOSE: Normal external nose present EXTERNAL EAR: Yes external ears normal EXTERNAL AUDITORY CANAL: EAC's normal TYMPANIC MEMBRANE: TM's normal bilaterally MOUTH: Normal oral and palatal mucosa present THROAT: posterior oropharynx normal OTHER: Left mastoid bone nontender to palpation, no redness or swelling Eye: COMMON NORMALS: EOMs intact bilaterally and conjunctivae normal CONJUNCTIVA: Yes conjunctivae normal Neck/C-Spine: COMMON NORMALS: full ROM, supple and no JVD Resp: COMMON NORMALS: normal respiratory effort, No retractions, No use of accessory muscles and clear to auscultation bilaterally AUSCULTATION: clear to auscultation bilaterally Cardio: COMMON NORMALS: no JVD, regular rate, regular rhythm, No clicks present (Cardio), No murmurs present (Cardio) and No rub (Cardio) RATE: regular rate RHYTHM: regular rhythm Extremity: COMMON NORMALS: normal to inspection, full ROM and capillary refill normal Neuro: COMMON NORMALS: patient oriented x3 Skin: COMMON NORMALS: no rashes or lesions noted GENERAL SKIN EXAM: no rashes or lesions noted Course Vital Signs: Vital signs: Vital Signs Temperature 98.1 F 06/16/24 16:28 Pulse Rate 83 06/16/24 16:28 Respiratory Rate 18 06/16/24 16:28 Blood Pressure 124/74 06/16/24 16:28 Pulse Oximetry 100 06/16/24 16:28 Oxygen Delivery Me thod Room Air 06/16/24 16:28 MDM - Ear Medical Decision Making Patient presenting with acute onset left ear pain. Left TM did not demonstrate any abnormalities, EAC was normal as well. Posterior left ear exam was normal there is no signs clinically of mastoiditis. Her vitals were stable. With her history of migraines, this could be atypical migraine but otherwise I do not suspect any acute aortic abnormality. Will have her follow-up with primary care closely and return if she starts having fevers or other severe symptoms. She is comfortable with this plan, shot of Toradol given for pain. No radiology studies performed this visit Discharge Plan Discharge Patient Disposition: Home Clinical Impression: Ear pain, left Condition: Stable Prescriptions: No Action lorazepam [Ativan] 0.5 mg tablet 0.5 mg PO BID PRN (Reason: anxiety) Qty: 20 0RF potassium chloride 20 mEq tablet extended release 20 meq PO DAILY pantoprazole 40 mg tablet,delayed release (DR/EC) PO ranolazine 500 mg tablet extended release 12 hr 500 mg PO BID Maxalt 10 mg tablet 10 mg PO .COMPLEX PRN (Reason: Migraine Headache) 30 Days Qty: 27 1RF Rx Instructions: 10 mg PO PRN; ropinirole 1 mg tablet 1 mg PO BID@0800,2100 90 Days Qty: 180 1RF metoprolol tartrate 25 mg tablet 25 mg PO DAILY meloxicam 7.5 mg tablet PO Mounjaro 10 mg/0.5 mL pen injector SUBCUT (DME) Auto Titrating CPAP set to 12-16 with supplies See Rx Instructions .Route .MEDSUPPLY Qty: 1 0RF Rx Instructions: As directed lamotrigine [Lamictal] 100 mg tablet 100 mg PO DAILY Qty: 30 1RF sertraline [Zoloft] 100 mg tablet 100 mg PO DAILY Qty: 30 1RF tizanidine 4 mg tablet 4 mg PO Q8H PRN (Reason: muscle spasticity) Qty: 15 0RF fluticasone propionate [Flonase Allergy Relief] 50 mcg/actuation spray,suspension 1 spray intranasal BID PRN (Reason: allergy symptoms) Qty: 16 0RF Rx Instructions: administer into each nostril Discharge Orders: Discharge ED (Routine); Ordered 06/16/24 Ordered By: Nain Mercedes Referrals: Raina Bermeo PA [Primary Care Provider] - Patient Instructions: Earache (ED) Activity Restrictions/Additional Instructions: Follow-up with primary care as discussed. Return with any hearing loss, fevers, vomiting, or other severe symptoms you have. Ibuprofen/Tylenol for pain. Coding Level of Care Code ED Tent Finisher for Giovanny Altamirano
[2024-06-16] MEDS: ketorolac 60 mg/2 mL INJ IM (18:43)
[2024-06-16 19:11] VITALS: BP 145/113; PULSE 87; RESP 16; O2SAT 100
== END 2024-06-16 19:18 | disposition home or self-care (01) ==
PROVIDERS: Emergency Provider Physician Assistant; PCP Physician Assistant
DX: H92.02 Otalgia, left ear (principal); F17.210 Nicotine dependence, cigarettes, uncomplicated; I10 Essential (primary) hypertension
CPT/HCPCS: 96372; 99284; J1885

== ENCOUNTER → 2024-07-06 08:07 | Outpatient (BNVA) | payer BC, SELFPAY | PROVIDERS: PCP Physician Assistant; Visit Provider Obstetrics & Gynecology | DX: N95.0 Postmenopausal bleeding (principal); R93.89 Abnormal findings on diagnostic imaging of other specified body structures | CPT/HCPCS: 76830 ==

== ENCOUNTER 2024-07-28 15:08 | Emergency (ER) | payer BC, SELFPAY ==
[2024-07-28 15:17] VITALS: BP 141/97; PULSE 98; RESP 20; TEMP 36.4; O2SAT 98; BMI 47.6
--- NOTE | 2024-07-28 15:21 | XR_ITS ---
WS: [id number] XR chest 1V portable [id number] REASON FOR EXAM: sob FINDINGS: Normal thoracic aorta. Heart at the upper limits of normal. Calcified granulomas disease bilaterally. There is a complex multilocular cystic appearing area in the medial most right lung just above the brien. I cannot identify this abnormality on the previous chest x-ray of 04/18/[address] scan of the 04/23/2024. It is possible this is fortuitous overlap of structures in this examination which is rotated to the right. Do not believe it represents an acute abnormality. No acute pulmonary parenchymal or pleural abnormality. Mild thoracic scoliosis and degenerative spondylosis. XR/XR chest 1V portable [id number] IMPRESSION: No acute abnormality. Possible new finding in the right lung compared to previous examination of 03/27. Recommend follow-up PA and lateral chest in 7 to 10 days.
--- NOTE | 2024-07-28 15:32 | ECG_ITS ---
[employer] Test Date: 2024-07-28 Pat Name: Radha Boyer Department: Room: Gender: Female [employer]: : 1975 Requested By: Nain Luong Order Number: [id number] Leena MD: Jamie Batres M.D. Measurements Intervals [place] Rate: 89 P: 58 MD: 163 QRS: 32 QRSD: 100 T: -3 QT: 364 QTc: 444 Interpretive Statements SINUS RHYTHM NONSPECIFIC T-WAVE ABNORMALITY Compared to ECG 05/14/2024 08:53:29 Intraventricular conduction delay no longer present T-wave abnormality still present Electronically Signed On 07-31-2024 18:07:45 [employer] by Jamie Batres M.D. [email or web address]
--- NOTE | 2024-07-28 15:32 | W.ED.SOB ---
HPI - SOB/Dyspnea General: Chief Complaint: Shortness of Breath/Dyspnea Stated Complaint: HB/SOB Time Seen by Provider: 07/28/24 15:18 Source: patient Mode of arrival: ambulatory Limitations: no limitations History of Present Illness: HPI Narrative: 48-year-old presents the ER with complaints of shortness of breath and chest pain. Patient states she started to experience chest pain along with shortness of breath at 15:00 today. Patient reports taking her usual blood pressure medications today; metoprolol and ranolazine. Patient did not take her clonidine as needed for increase of blood pressure because she states she has misplaced them. Patient denies history of blood clots, leg swelling, recent surgeries. Patient denies palpitations, abdominal pain, wheezing, fever, chills. No other complaints at this time. She reported that the pain is diffuse across her chest, nonradiating and it has been intermittent. Notes that it is mild. Denies any pertinent cardiac history such as heart attacks or strokes. States that she has had echocardiogram and stress testing in the past that has been overall normal, but states that at one point had a Holter monitor saying that she chronically has an elevated heart rate. She does note a history of anxiety, stating that she has dealt with this since she lost her family a couple years ago and takes lorazepam as needed. States that she has had similar episodes of the pain and shortness of breath in the past. Notes that at onset she was seated taking notes, was not significantly exerting herself. Denies any recent medication changes. Vitals within normal limits at this time, blood pressure only mildly elevated at 141/97, she states that the highest she recorded at home was 128/107. MD elicited complaint: shortness of breath Onset (ago): hour(s) Timing: intermittent Severity: moderate Relieving factors: nothing Associated symptoms: Reports chest pain; Deny abdominal pain, dizziness, extremity pain, fever(s), lightheadedness, nausea, palpitations or vomiting Treatment prior to arrival: none Related Data Home Medications ?Medication ?Instructions ?Recorded ?Confirmed metoprolol tartrate 25 mg tablet 25 mg PO DAILY 10/02/23 07/28/24 potassium chloride 20 mEq 20 meq PO DAILY 12/10/23 07/28/24 tablet,extended release ranolazine 500 mg tablet,extended 500 mg PO BID 05/14/24 07/28/24 release,12 hr tirzepatide 10 mg/0.5 mL 10 mg SUBCUT Q7D 05/17/24 07/28/24 subcutaneous pen injector (Sherry) clonidine HCl 0.1 mg tablet See Rx Instructions .Route .COMPLEX 07/28/24 07/28/24 ropinirole 2 mg tablet 2 mg PO BID 07/28/24 07/28/24 simvastatin 20 mg tablet 20 mg PO DAILY 07/28/24 07/28/24 Previous Rx's ?Medication ?Instructions ?Recorded Auto Titrating CPAP set to 12-16 #1 ea 02/18/23 with supplies Allergies Allergy/AdvReac Type Severity Reaction Status Date / Time chlorhexidine (From Allergy itchy Verified 07/16/24 08:04 Hibiclens) Review of Systems General: Reports: 10 or more systems reviewed and unremarkable except in HPI and below Const: Denies: fever(s), chills or body aches Eyes: Denies: change in vision or blurry vision Card: Reports: chest pain and other (reports HTN); Denies: palpitations, edema or lightheadedness Resp: Reports: dyspnea; Denies: productive cough, non-productive cough or pain on inspiration GI: Denies: abdominal pain, nausea, vomiting, diarrhea or constipation : Denies: difficulty voiding or dysuria Musc: Denies: neck pain, back pain or extremity pain Skin/Breast: Denies: rash Neuro: Denies: headache(s), numbness in extremities, weakness in extremities, difficulty walking, dizziness, confusion or Slurred speech present Psych: Reports: anxiety PFSH ED PFSH: Medical History Opioid contract exists Obstructive sleep apnea History of sleep study Grief at loss of child Bipolar 2 disorder Nicotine dependence, cigarettes, with unspecified nicotine-induced disorders Migraine without aura and with status migrainosus, not intractable Essential (primary) hypertension Menopausal syndrome (hot flashes) GERD (gastroesophageal reflux disease) Acquired hypothyroidism Seizure disorder Surgical History History of surgical removal of skin lesion hx lesion removal from lip History of placement of ear tubes H/O section H/O knee surgery Family History Father Diabetes Hypertension CAD (coronary artery disease) Hyperlipidemia Heart disease Grandfather CAD (coronary artery disease) Sister Diabetes Thyroid disease Social History Smoking and tobacco/nicotine status: current every day tobacco/nicotine user (5 cigarettes daily) cigarettes Packs smoked per day: 1 Alcohol intake: never Substance/Drug Use: never Physical Exam Const: COMMON NORMALS: no acute distress, patient oriented x3, no limitations, alert and well nourished GENERAL APPEARANCE: cooperative NUTRITIONAL APPEARANCE: obese ORIENTATION/CONSCIOUSNESS: Yes awake, Yes oriented to person, Yes oriented to place and Yes oriented to time HENMT: COMMON NORMALS: normocephalic, atraumatic and moist oral mucous membranes HEAD & SCALP: normocephalic and atraumatic Eye: COMMON NORMALS: Equal, round and reactive pupils present, EOMs intact bilaterally and conjunctivae normal CONJUNCTIVA: Yes conjunctivae normal PUPIL: Yes Equal, round and reactive pupils present Neck/C-Spine: COMMON NORMALS: full ROM, no meningeal signs and no JVD Chest: COMMONS NORMALS: normal inspection of the chest Resp: COMMON NORMALS: normal respiratory effort, No retractions, No use of accessory muscles and clear to auscultation bilaterally EFFORT & INSPECTION: Yes able to speak in complete sentences AUSCULTATION: clear to auscultation bilaterally Cardio: COMMON NORMALS: no JVD, regular rate, regular rhythm, S1 normal heart sound present, S2 normal heart sound present, No gallops present (Cardio), No murmurs present (Cardio), No rub (Cardio) and Peripheral pulses 2+ throughout RATE: regular rate RHYTHM: regular rhythm HEART SOUNDS: S1 normal heart sound present and S2 normal heart sound present PERIPHERAL PULSES: Peripheral pulses 2+ throughout GI: COMMON NORMALS: Soft to palpation and non-tender PALPATION: Yes Soft to palpation Extremity: COMMON NORMALS: normal to inspection, full ROM, capillary refill normal and no pedal edema Neuro: COMMON NORMALS: patient oriented x3 SENSORIUM/ORIENTATION: Yes alert, Yes oriented to person, Yes oriented to place and Yes oriented to time MENINGEAL SIGNS: Yes no meningeal signs Skin: COMMON NORMALS: no rashes or lesions noted GENERAL SKIN EXAM: no rashes or lesions noted Course Vital Signs: Vital signs: Vital Signs Temperature 97.6 F 07/28/24 15:17 Pulse Rate 92 07/28/24 17:29 Respiratory Rate 20 H 07/28/24 16:43 Blood Pressure 117/87 07/28/24 17:29 Pulse Oximetry 99 07/28/24 17:29 Oxygen Delivery Me thod Room Air 07/28/24 16:43 MDM - SOB/Dyspnea Medical Decision Making This patient presented with sudden onset chest pain and shortness of breath associated with other symptoms. History of similar. Physical examination ultimately unremarkable. She had reported blood pressure elevation at home, though stated to me it was 128/107. States that she lost her clonidine that she was supposed to take. Here her blood pressure has been unremarkable, prior to discharge is down to 117/87. No longer complaining of symptoms upon recheck. Her labs showed no convincing signs of acute coronary syndrome. Chest x-ray unremarkable, there was incidental finding that I informed patient to follow-up with primary care about. Patient also had stated she has known history of nodules. Her baseline troponin was unremarkable. EKG reviewed showing normal sinus rhythm with no acute STEMI or other arrhythmias. Urinalysis negative and viral swab negative. Electrolytes normal. Kidney function normal. I do not suspect any nephrogenic cause of high blood pressure nor ACS as mentioned. She has a PERC score of 0 and a heart score of 2, and I do not feel that further workup here in the emergency department is necessary and that she needs to follow-up with primary care. She does have a history of anxiety and panic attacks for which she takes lorazepam as needed, suspect that this might be contributing to this. Overall discussed return precautions, she verbalized understanding and states she has follow-up appointment early next week with primary care. Lab Data 07/28/24 15:40 07/28/24 15:40 Labs/Radiology: Radiology Impressions Chest X-Ray 07/28/24 15:21 IMPRESSION: No acute abnormality. Possible new finding in the right lung compared to previous examination of 04/18/2024. Recommend follow-up PA and lateral chest in 7 to 10 days. Laboratory Results WBC 8.58 10^3/uL (3.29-11.43) 07/28/24 15:40 RBC 5.14 10^6/uL (3.85-5.65) 07/28/24 15:40 Hgb 15.20 g/dL (11.27-16.99) 07/28/24 15:40 Hct 47.1 % (36-47) H 07/28/24 15:40 MCV 91.6 fl (85-98) 07/28/24 15:40 MCH 29.6 pg (27-33) 07/28/24 15:40 MCHC 32.3 g/dL (30-55) 07/28/24 15:40 RDW 13.6 % (12.1-15.1) 07/28/24 15:40 Plt Count 322 10^3/cmm (157-399) 07/28/24 15:40 MPV 8.4 fL (7.4-10.4) 07/28/24 15:40 Neut % (Auto) 71.0 % 07/28/24 15:40 Lymph % (Auto) 21.4 % 07/28/24 15:40 [place] % (Auto) 3.8 % 07/28/24 15:40 Eos % (Auto) 2.6 % 07/28/24 15:40 Baso % (Auto) 0.7 % 07/28/24 15:40 Neut # (Auto) 6.09 10^3/uL (1.8-7.7) 07/28/24 15:40 Lymph # (Auto) 1.8 10^3/uL (0.8-4.8) 07/28/24 15:40 [place] # (Auto) 0.3 10^3/uL (0.2-0.9) 07/28/24 15:40 Eos # (Auto) 0.2 10^3/uL (0.0-0.8) 07/28/24 15:40 Baso # (Auto) 0.1 10^3/uL (0.0-0.1) 07/28/24 15:40 Nucleated RBC % (auto) 0 % 07/28/24 15:40 Nucleated RBCs # 0.0 /100WBC 07/28/24 15:40 Sodium 137 mmol/L (136-145) 07/28/24 15:40 Potassium 4.0 mmol/L (3.5-5.1) 07/28/24 15:40 Chloride 100 mmol/L (98-107) 07/28/24 15:40 Carbon Dioxide 25 mmol/L (22-29) 07/28/24 15:40 Anion Gap 16.0 (5-19) 07/28/24 15:40 BUN 8 mg/dL (6-20) 07/28/24 15:40 Creatinine 0.8 mg/dL (0.5-0.9) 07/28/24 15:40 GFR Calculation 77.2 mL/min (90-130) L 07/28/24 15:40 Glucose 102 mg/dL (65-115) 07/28/24 15:40 Calculated Osmolality 283 mOsm/kg (285-295) L 07/28/24 15:40 Calcium 9.5 mg/dL (8.5-10.5) 07/28/24 15:40 Total Bilirubin 0.3 mg/dL (0.15-1.2) 07/28/24 15:40 AST 18 U/L (0-32) 07/28/24 15:40 ALT 23 U/L (0-33) 07/28/24 15:40 Alkaline Phosphatase 108 U/L (35-105) H 07/28/24 15:40 Troponin T Baseline 9 ng/L (0-10) 07/28/24 15:40 Total Protein 7.4 g/dL (6.6-8.7) 07/28/24 15:40 Albumin 4.2 g/dL (3.5-5.2) 07/28/24 15:40 Globulin 3.2 g/dL (1.3-4.6) 07/28/24 15:40 Urine Color Yellow (Yellow) 07/28/24 15:49 Urine Appearance Clear (CLEAR) 07/28/24 15:49 Urine pH 6.0 (5-7) 07/28/24 15:49 Ur Specific [place] 1.005 (1.005-1.030) 07/28/24 15:49 Urine Protein Negative (Negative) 07/28/24 15:49 Urine Glucose (UA) Negative (Normal) 07/28/24 15:49 Urine Ketones Negative (Negative) 07/28/24 15:49 Urine Blood Negative (Negative) 07/28/24 15:49 Urine Nitrate Negative (Negative) 07/28/24 15:49 Urine Bilirubin Negative (Negative) 07/28/24 15:49 Urine Urobilinogen 0.2 mg/dL (Negative) 07/28/24 15:49 Ur Leukocyte Esterase Negative (Negative) 07/28/24 15:49 Amorphous Sediment Not Reportable 07/28/24 15:49 Influenza A (PCR) Negative (Negative) 07/28/24 15:33 Influenza Type B (PCR) Negative (Negative) 07/28/24 15:33 RSV (PCR) Negative (Negative) 07/28/24 15:33 SARS-CoV-2 (PCR) Negative (Negative) 07/28/24 15:33 All radiology interpretation(s) finalized by discharge Discharge Plan Discharge Patient Disposition: Home Clinical Impression: Anxiety Chest pain Qualifiers: Chest pain type: unspecified Qualified Code(s): R07.9 - Chest pain, unspecified Condition: Stable Prescriptions: No Action potassium chloride 20 mEq tablet extended release 20 meq PO DAILY ranolazine 500 mg tablet extended release 12 hr 500 mg PO BID metoprolol tartrate 25 mg tablet 25 mg PO DAILY Mounjaro 10 mg/0.5 mL pen injector 10 mg SUBCUT Q7D (DME) Auto Titrating CPAP set to 12-16 with supplies See Rx Instructions .Route .MEDSUPPLY Qty: 1 0RF Rx Instructions: As directed ropinirole 2 mg tablet 2 mg PO BID clonidine HCl 0.1 mg tablet See Rx Instructions .ROUTE .COMPLEX Rx Instructions: TAKE 1 TABLET BY MOUTH EVERY DAY NEEDED FOR BLOOD PRESSURE GREATER THAN 180/110 simvastatin 20 mg tablet 20 mg PO DAILY Discharge Orders: Discharge ED (Routine); Ordered 07/28/24 Ordered By: Nain Mercedes Referrals: Raina Bermeo PA [Primary Care Provider] - Patient Instructions: Chest Pain (ED) Activity Restrictions/Additional Instructions: Follow-up closely with primary care provider for general recheck and to have a recheck of your chest x-ray as we discussed. Continue taking your home blood pressure medications, keep a log of your blood pressure to report to primary care. If your shortness of breath or pain worsens, if you develop any fever or cough, please return to the emergency department as we discussed. Please see the attached patient instructions for further education. Print Language: German Coding Level of Care Code ED Composing Room Supervisor for Giovanny Altamirano
[2024-07-28 15:49] LABS: Basophils # 0.1 10^3/uL (0.0-0.1); Basophils % 0.7 %; Eosinophils # 0.2 10^3/uL (0.0-0.8); Eosinophils % 2.6 %; Hematocrit 47.1 % (36-47); Lymphocytes # 1.8 10^3/uL (0.8-4.8); Lymphocytes % 21.4 %; Mean Corpuscular HGB Conc 32.3 g/dL (30-55); Mean Corpuscular Hemoglobin 29.6 pg (27-33); Mean Corpuscular Volume 91.6 fl (85-98); Mean Platelet Volume 8.4 fL (7.4-10.4); Monocytes # 0.3 10^3/uL (0.2-0.9); Monocytes % 3.8 %; Neutrophils # 6.09 10^3/uL (1.8-7.7); Nucleated Red Blood Cells % 0 %; Platelet Count 322 10^3/cmm (157-399); Red Blood Count 5.14 10^6/uL (3.85-5.65); Red Cell Distribution Width 13.6 % (12.1-15.1); White Blood Count 8.58 10^3/uL (3.29-11.43)
[2024-07-28 16:05] LABS: Add Urine Microscopic? NO
[2024-07-28 16:10] LABS: Troponin(5th) Baseline 9 ng/L (0-10)
[2024-07-28 16:11] LABS: Alanine Aminotransferase 23 U/L (0-33); Albumin Level 4.2 g/dL (3.5-5.2); Alkaline Phosphatase 108 U/L (35-105); Aspartate Amino Transferase 18 U/L (0-32); Blood Urea Nitrogen 8 mg/dL (6-20); Calcium 9.5 mg/dL (8.5-10.5); Carbon Dioxide 25 mmol/L (22-29); Chloride 100 mmol/L (98-107); Creatinine Clr Calc Pharmacy 140.5702; Globulin 3.2 g/dL (1.3-4.6); Glomerular Filtration Rate 77.2 mL/min (90-130); Glucose 102 mg/dL (65-115); Osmolality Calculated 283 mOsm/kg (285-295); Sodium 137 mmol/L (136-145); Total Bilirubin 0.3 mg/dL (0.15-1.2); Total Protein 7.4 g/dL (6.6-8.7)
[2024-07-28 16:19] LABS: Bilirubin Urine Negative (Negative); Blood Urine Negative (Negative); Glucose Urine UA Negative (Normal); Ketones Urine Negative (Negative); Leukocyte Esterase Urine Negative (Negative); Nitrate Urine Negative (Negative); Protein Urine Negative (Negative); Specific Gravity, Urine 1.005 (1.005-1.030); Urine Appearance Clear (CLEAR); Urine Color Yellow (Yellow); Urobilinogen Urine 0.2 mg/dL (Negative)
[2024-07-28 16:25] VITALS: BP 116/87; PULSE 87; RESP 18; O2SAT 96
[2024-07-28 16:43] VITALS: BP 120/82; PULSE 88; RESP 20; O2SAT 97
[2024-07-28 16:49] LABS: Add Urine Culture? No; Charge for UA Resulting for Rev
[2024-07-28 17:02] LABS: Influenza A NEGATIVE (Negative); Influenza B NEGATIVE (Negative); Respiratory Syncytial Virus Ce NEGATIVE (Negative); SARS-CoV-2 PCR NEGATIVE (Negative)
[2024-07-28 17:29] VITALS: BP 117/87; PULSE 92; O2SAT 99
== END 2024-07-28 17:34 | disposition home or self-care (01) ==
PROVIDERS: Emergency Provider Physician Assistant; PCP Physician Assistant
DX: F41.9 Anxiety disorder, unspecified (principal); R07.9 Chest pain, unspecified; Z11.52 Encounter for screening for COVID-19; F17.210 Nicotine dependence, cigarettes, uncomplicated; I10 Essential (primary) hypertension
CPT/HCPCS: 36415; 71045; 80053; 81003; 84484; 85025; 87637; 93005; 99285

== ENCOUNTER 2024-10-12 00:08 | Emergency (ER) | payer BC, SELFPAY ==
[2024-10-12 00:23] VITALS: BP 144/76; PULSE 91; RESP 18; TEMP 36.4; O2SAT 97
[2024-10-12] MEDS: ondansetron hcl ODT 4 mg Tab PO (01:49)
[2024-10-12 01:50] VITALS: BP 131/77; PULSE 98; RESP 18; O2SAT 95
--- NOTE | 2024-10-12 02:13 | W.ED.EYEPROB ---
HPI - Eye Problem General: Chief complaint: Eye Problems Stated complaint: Carlos eye mayte dry and throat Time Seen by Provider: 10/12/24 00:29 History of Present Illness: The patient presents to the ER with complaints of left eye irritation and dryness, as well as throat discomfort described as burning and itchy. The left eye symptoms have been ongoing, with the patient reporting persistent dryness and irritation despite using eye drops. The throat symptoms started today, characterized as a burning sensation with itchiness. The patient also reports a recent onset of cough, which has led to some vomiting episodes. They clarify that the vomiting is likely due to the cough rather than nausea. The patient mentions experiencing shortness of breath, but states this is a chronic issue for which they see a drug purchaser in [place]. When asked about potential exposures, the patient mentions recent contact with a coworker who had strep throat. They deny any fever or nausea. The patient reports a history of sinus drainage at times and occasionally experiences a gritty feeling in their eyes. The patient acknowledges that they would have initially sought care at an urgent care facility, considering their symptoms not severe enough for an ER visit. However, due to time constraints, they were unable to access urgent care services. Related Data Home Medications ?Medication ?Instructions ?Recorded ?Confirmed metoprolol tartrate 25 mg tablet 25 mg PO DAILY 10/02/23 07/30/24 potassium chloride 20 mEq 20 meq PO DAILY 12/10/23 07/30/24 tablet,extended release ranolazine 500 mg tablet,extended 500 mg PO BID 05/14/24 07/30/24 release,12 hr tirzepatide 10 mg/0.5 mL 10 mg SUBCUT Q7D 05/17/24 07/30/24 subcutaneous pen injector (Gabounaaliyahro) clonidine HCl 0.1 mg tablet See Rx Instructions .Route .COMPLEX 07/28/24 07/30/24 ropinirole 2 mg tablet 2 mg PO BID 07/28/24 07/30/24 simvastatin 20 mg tablet 20 mg PO DAILY 07/28/24 07/30/24 amitriptyline 50 mg tablet 50 mg PO DAILY 07/30/24 07/30/24 amlodipine 2.5 mg tablet (Norvasc) 2.5 mg PO DAILY 07/30/24 07/30/24 Previous Rx's ?Medication ?Instructions ?Recorded Auto Titrating CPAP set to 12-16 #1 ea 02/18/23 with supplies olopatadine 0.1 % eye drops 1 drp ophthalmic (eye) BID #5 mL 10/12/24 Allergies Allergy/AdvReac Type Severity Reaction Status Date / Time chlorhexidine (From Allergy itchy Verified 10/12/24 00:26 Hibiclens) Review of Systems General: Reports: 10 or more systems reviewed and unremarkable except in HPI and below PFSH ED PFSH: Medical History Opioid contract exists Obstructive sleep apnea History of sleep study Grief at loss of child Bipolar 2 disorder Nicotine dependence, cigarettes, with unspecified nicotine-induced disorders Migraine without aura and with status migrainosus, not intractable Essential (primary) hypertension Menopausal syndrome (hot flashes) GERD (gastroesophageal reflux disease) Acquired hypothyroidism Seizure disorder Surgical History History of surgical removal of skin lesion hx lesion removal from lip History of placement of ear tubes H/O section H/O knee surgery Family History Father Diabetes Hypertension CAD (coronary artery disease) Hyperlipidemia Heart disease Grandfather CAD (coronary artery disease) Sister Diabetes Thyroid disease Social History Smoking and tobacco/nicotine status: current every day tobacco/nicotine user (5 cigarettes daily) cigarettes Packs smoked per day: 1 Alcohol intake: never Substance/Drug Use: never Physical Exam Const: COMMON NORMALS: no acute distress, patient oriented x3, healthy appearing, alert and well nourished HENMT: COMMON NORMALS: normocephalic, Normal external nose present and Normal nasal mucous membranes and turbinates present HEAD & SCALP: normocephalic NOSE: Normal external nose present and Normal nasal mucous membranes and turbinates present MOUTH: Normal oral and palatal mucosa present and tongue normal Eye: COMMON NORMALS: EOMs intact bilaterally and conjunctivae normal GENERAL EYE: appearance normal, both eyes and all related structures CONJUNCTIVA: Yes conjunctivae normal SCLERA: sclerae normal Neck/C-Spine: COMMON NORMALS: full ROM and supple Resp: COMMON NORMALS: normal respiratory effort, No retractions and clear to auscultation bilaterally AUSCULTATION: clear to auscultation bilaterally Cardio: COMMON NORMALS: regular rate, regular rhythm, No gallops present (Cardio) and No murmurs present (Cardio) RATE: regular rate RHYTHM: regular rhythm GI: COMMON NORMALS: Soft to palpation and non-tender PALPATION: Yes Soft to palpation Extremity: GENERAL: Yes normal exam except as noted Neuro: COMMON NORMALS: patient oriented x3 SENSORIUM/ORIENTATION: Yes alert Skin: COMMON NORMALS: no rashes or lesions noted GENERAL SKIN EXAM: no rashes or lesions noted Course Vital Signs: Vital signs: Vital Signs Temperature 97.5 F L 10/12/24 00:23 Pulse Rate 98 10/12/24 01:50 Respiratory Rate 18 10/12/24 01:50 Blood Pressure 131/77 10/12/24 01:50 Pulse Oximetry 95 10/12/24 01:50 Oxygen Delivery Me thod Room Air 10/12/24 01:50 MDM - Eye Problem Medical Decision Making 48-year-old female presents emergency department for evaluation of dry eye, sore throat, cough, and nausea. All of these symptoms started just earlier in the day. She has not tried anything to make the symptoms better. She did have an exposure to strep throat. However, her tonsils were not red, swollen, and without exudates. Most likely diagnosis at this time is allergic rhinitis. Prescribed the patient olopatadine drops for her eyes. She already has Flonase at home. Encouraged her to start taking it. Return precautions were discussed and the patient was discharged home in good condition. No radiology studies performed this visit Discharge Plan Discharge Patient Disposition: Home Clinical Impression: Allergic rhinitis Qualifiers: Allergic rhinitis trigger: unspecified Allergic rhinitis seasonality: seasonal Qualified Code(s): J30.2 - Other seasonal allergic rhinitis Condition: Stable Prescriptions: New olopatadine 0.1 % drops 1 drp ophthalmic (eye) BID Qty: 5 0RF Rx Instructions: separate doses by at least 6-8 hours No Action potassium chloride 20 mEq tablet extended release 20 meq PO DAILY ranolazine 500 mg tablet extended release 12 hr 500 mg PO BID metoprolol tartrate 25 mg tablet 25 mg PO DAILY Mounjaro 10 mg/0.5 mL pen injector 10 mg SUBCUT Q7D amlodipine [Norvasc] 2.5 mg tablet 2.5 mg PO DAILY amitriptyline 50 mg tablet 50 mg PO DAILY (DME) Auto Titrating CPAP set to 12-16 with supplies See Rx Instructions .Route .MEDSUPPLY Qty: 1 0RF Rx Instructions: As directed ropinirole 2 mg tablet 2 mg PO BID clonidine HCl 0.1 mg tablet See Rx Instructions .ROUTE .COMPLEX Rx Instructions: TAKE 1 TABLET BY MOUTH EVERY DAY NEEDED FOR BLOOD PRESSURE GREATER THAN 180/110 simvastatin 20 mg tablet 20 mg PO DAILY Discharge Orders: Discharge ED (Routine); Ordered 10/12/24 Ordered By: Henrique Verma Referrals: Raina Bermeo PA [Primary Care Provider, Physicians Player Piano Technician] Discharge Diet: Advance as tolerated Discharge Activity: Resume usual activity Patient Instructions: Opioid Safety, Pain Management Activity Restrictions/Additional Instructions: Return to the emergency department any new or worsening symptoms. Follow-up your primary care doctor for any persistent symptoms Print Language: Korean Coding Level of Care Code ED Matzo Forming Machine Operator for Giovanny Altamirano
[2024-10-12 02:18] VITALS: BP 129/106; PULSE 89; O2SAT 98
== END 2024-10-12 02:17 | disposition home or self-care (01) ==
PROVIDERS: Emergency Provider General Practice; PCP Physician Assistant
DX: J30.2 Other seasonal allergic rhinitis (principal); F17.210 Nicotine dependence, cigarettes, uncomplicated; I10 Essential (primary) hypertension
CPT/HCPCS: 99283; Q0162

== ENCOUNTER 2025-02-23 15:18 | Emergency (ER) | payer BC, SELFPAY ==
--- OUTSIDE RECORDS SUMMARY | 2025-02-23 15:23 | XMS_ITS | Encounter Summary ---
Author Organization [facility] Address [address] [place] [address] Care Team Providers Care Receiver Stocker Name Role Phone Unavailable Primary Care Provider Unavailabl e Encounter Details Date Type Department Care Team (Late st Contact Info) Description 02/22/2025 External Device Data [facility] Provider, Abstract NO ADDRESS ON FILE Social History Tobacco Use Types Packs/Day Years Used Date Smoking Tobacco: Every Day Cigarettes Alcohol Use Standard Drinks/Week Comments Not Currently 0 (1 standard drink = 0.6 oz pur e alcohol) Feeling Safe Answer Date Recorded Are you in a relationship wi th someone who hurts you emotionally and/or physically? 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
--- OUTSIDE RECORDS SUMMARY | 2025-02-23 15:23 | XMS_ITS | Encounter Summary ---
Author Organization [facility] Address 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
--- OUTSIDE RECORDS SUMMARY | 2025-02-23 15:23 | XMS_ITS | Encounter Summary ---
Author Organization [facility] Address 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
--- OUTSIDE RECORDS SUMMARY | 2025-02-23 15:24 | XMS_ITS | Clinical Summary ---
Author Organization [facility] Address [address] [facility] [address] [place] [address] Phone Care Team Providers Care Damascener Name Role Phone Unavailable Primary Care Provider Unavailabl e Allergies Active Allergy Reactions Criticality Noted Date Comments Chlorhexidine Gluconate Rash,Itching Low 04/27/2024 Medications metoprolol tartrate (LOPRESSOR) 25 mg tablet Take 25 mg by mouth daily. Active ranolazine ER (RANEXA) 500 mg Extended Release 12 hour tablet Take 500 mg by mouth every 12 hours. Active rOPINIRole (REQUIP) 2 mg Tablet Take 2 mg by mouth 2 times daily. Active midodrine (PROAMATINE) 10 mg Tablet Take 10 mg by mouth. Active LORazepam (ATIVAN) 0.5 mg tablet Take 0.5 mg by mouth every 6 hours as needed for Anxiety. Active lamoTRIgine (LaMICtal) 100 mg tablet Take 100 mg by mouth daily. Active potassium bicarbonate-citri c acid (EFFER-K) 20 mEq Tablet, Effervescent Active sertraline (ZOLOFT) 100 mg tablet Take 100 mg by mouth daily. Active simvastatin (ZOCOR) 20 mg tablet Take 20 mg by mouth daily with supper. Active varenicline (CHANTIX) 1 mg Tablet Take 1 mg by mouth 2 times daily. Active azelastine (ASTELIN) 137 mcg/actuation nasal spray Administer 2 Sprays in each nostril 2 times daily. 1 mL 11 5 Active fluticasone propionate (FLONASE) 50 mcg/spray [place], Suspension nasal inhaler Administer 2 Sprays in each nostril daily. 16 Gram 11 Active Active Problems No known active problems Encounters Date Type Department Care Team Description 02/22/2025 External Device Data [facility] ABSTRACTION Provider, Abstract 02/22/2025 External Device Data [facility] ABSTRACTION Provider, Abstract 02/22/2025 External Device Data [facility]STRACTION Provider, Abstract 02/08/2025 External Device Data [facility] ABSTRACTION Provider, Abstract 02/07/2025 8:30 AM CDT Office Visit [facility] [address] [place] [address] Divine Lugo AU.D Sensorineural hearing loss (SNHL), bilateral (Primary Dx) 01/25/2025 External Device Data [facility] ABSTRACTION Provider, Abstract 01/11/2025 External Device Data [facility] ABSTRACTION Provider, Abstract 01/04/2025 External Device Data [facility] ABSTRACTION Provider, Abstract 12/21/2024 2:45 PM CDT Office Visit [facility] Th[facility] [address] [place] [phone] Paras Mccollum MD Sensorineural hearing loss (SNHL) of both ears (Primary Dx); Non-seasonal allergic rhinitis due to other allergic trigger; Dysfunction of both eustachian tubes 12/06/2024 11:00 AM CDT Procedure visit [facility] [address] [place] [address] Divine Lugo AU.D Sensation of fullness in ear, bilateral (Primary Dx) 11/23/2024 External Device Data [facility] ABSTRACTION Provider, Abstract 11/23/2024 External Device Data [facility] ABSTRACTION Provider, Abstract from Last 3 Months Immunizations Immunization Administration Dates Next Due (TDVAX)(7 YRS UP) TETANUS AN D DIPHTHERIA TOXOIDS, ADSORBED (2 LF OF TETANUS TOXOID AND 2 LF OF DIPHTHERIA TOXOID), 0.5ML (PF), IM 03/15/2002 Hepatitis B Vaccine 09/27/1996,06/18/1996,1995 Social History Tobacco Use Types Packs/Day Years Used Date Smoking Tobacco: Every Day Cigarettes Tobacco Cessation:Ready to Q uit: Not Asked; Counseling Given: Not Answered Alcohol Use Standard Drinks/Week Comments Not Currently 0 (1 standard drink = 0.6 oz pur e alcohol) Feeling Safe Answer Date Recorded Are you in a relationship wi th someone who hurts you emotionally and/or physically? 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 MIDWIFE Gender Identity Not on file Sexual Orientation Not on file Last Filed Vital Signs Vital Sign Reading Time Taken Comments Blood Pressure 126/82 12/21/2024 2:21 PM CDT Pulse 66 09/09/2024 2:03 PM CDT Temperature 36.2 C (97.1 F) 04/27/2024 5:20 PM MIDWIFE Respiratory Rate 20 04/27/2024 7:00 PM MIDWIFE Oxygen Saturation 93% 09/09/2024 2:03 PM CDT Inhaled Oxygen Concentration - - Weight 152.1 kg (335 lb 6.4 oz) 12/21/2024 2:21 PM CDT Height 177.8 cm (5' 10 ) 09/09/2024 2:03 PM CDT Body Mass Index 48.12 09/09/2024 2:03 PM CDT Plan of Treatment Health Maintenance Due Date Last Done Comments DIABETES ANNUAL FOOT EXAM 10/31/1995 DIABETES ANNUAL RETINAL EXAM 10/31/1995 DIABETES MICROALBUMIN ANNUAL SCREEN 10/31/1995 LDL CHOLESTEROL ANNUAL 10/31/1995 HPV/Cotest (21-29) 1998 CERVICAL CANCER SCREENING 10/31/2007 HPV/Cotest (30-65) 10/31/2007 PAP SMEAR 10/31/2007 BREAST CANCER SCREENING 2017 COLORECTAL SCREENING 2022 Colorectal Cancer Screening 2022 FIT-DNA Q 3 years 2022 FIT/FOBT Q 1 year 2022 Flex Sig/CT Colonography Q 5 years 2022 INFLUENZA VACCINE (#1) 2024 DIABETES HBA1C Q 6 MONTHS 07/08/2025 01/05/2025 DTAP/TDAP/TD VACCINES (2 - T d or Tdap) 05/27/2033 05/27/2023, 03/15/2002 HEPATITIS B VACCINES Completed 09/27/1996, 09/27/1996, 06/18/1996, Additional history exists COVID-19 Vaccine Completed 03/24/2024, 06/2023, 04/11/2022, Additional history exists Procedures Procedure Name Priority Date/Time Associated Diagnosis Comments DC TYMPANOMETRY Routine 12/06/2024 4:21 PM CDT Sensation of fullness in ear, bilateral from Last 3 Months Results * DC TYMPANOMETRY (12/06/2024 4:21 PM CDT) Narrative Divine Lugo AU.D - 12/06/2024 4:21 PM CDT Divine Lugo AU.D 12/06/2024 4:22 PM Radha Boyer is a 49 y.o. female in office for 3 month ENT follow-up with tympanograms. Tympanometric results: See Scanned Images Right Ear: Jerger Type As (0.8 ear canal volume; 0.22 compliance; -63 middle ear pressure) Left Ear: Jerger Type A (0.9 ear canal volume; 0.35 compliance; -34 middle ear pressure) Plan: Follow-up with ENT provider as planned. us Divine [facility] ORDERABLES Final Result from Last 3 Months Insurance [facility] BLUE ACCESS/TRUE BLUE PPO
[2025-02-23 15:34] VITALS: BP 138/87; PULSE 82; TEMP 36.5; O2SAT 100
[2025-02-23 16:47] VITALS: BP 116/77; PULSE 84; O2SAT 99
[2025-02-23 17:07] VITALS: BP 110/76; PULSE 88; O2SAT 98
--- NOTE | 2025-02-23 17:12 | W.ED.EAR ---
HPI - Ear Problem General: Chief complaint: Ear Stated complaint: Dizzy can't hear out of L EAR Time Seen by Provider: 02/23/25 16:43 Source: patient Mode of arrival: ambulatory Limitations: no limitations History of Present Illness: Patient is a 49-year-old female who presents emergency department complaining of dizziness and loss of hearing in left ear for the past few days. Reports history of hearing loss has been going on for a while, and she has seen an ear nose throat doctor in [place]. States that the dizziness is new however, reports family history of vertigo. No neurological deficits otherwise reported, no visual loss, trouble walking, headache, ear pain, ear discharge, or other concerning symptoms at this time. States that she takes Flonase but does not get much relief. MD Complaint: decreased hearing and other (Dizziness) Location: left ear Duration: constant Discharge from ear: no Associated symptoms: Denies ear or mastoid pain, fever(s), headache(s) or neck pain Treatment prior to arrival: other (Flonase) Related Data Home Medications ?Medication ?Instructions ?Recorded ?Confirmed metoprolol tartrate 25 mg tablet 25 mg PO DAILY 10/02/23 07/30/24 potassium chloride 20 mEq 20 meq PO DAILY 12/10/23 07/30/24 tablet,extended release ranolazine 500 mg tablet,extended 500 mg PO BID 05/14/24 07/30/24 release,12 hr tirzepatide 10 mg/0.5 mL 10 mg SUBCUT Q7D 05/17/24 07/30/24 subcutaneous pen injector (Sherry) clonidine HCl 0.1 mg tablet See Rx Instructions .Route .COMPLEX 07/28/24 07/30/24 ropinirole 2 mg tablet 2 mg PO BID 07/28/24 07/30/24 simvastatin 20 mg tablet 20 mg PO DAILY 07/28/24 07/30/24 amitriptyline 50 mg tablet 50 mg PO DAILY 07/30/24 07/30/24 amlodipine 2.5 mg tablet (Norvasc) 2.5 mg PO DAILY 07/30/24 07/30/24 Previous Rx's ?Medication ?Instructions ?Recorded Auto Titrating CPAP set to 12-16 #1 ea 02/18/23 with supplies olopatadine 0.1 % eye drops 1 drp ophthalmic (eye) BID #5 mL 10/12/24 meclizine 50 mg tablet 50 mg PO DAILY PRN dizziness #30 02/23/25 tabs Allergies Allergy/AdvReac Type Severity Reaction Status Date / Time chlorhexidine (From Allergy itchy Verified 02/23/25 15:38 Hibiclens) Review of Systems General: Reports: 10 or more systems reviewed and unremarkable except in HPI and below Const: Denies: fever(s), chills or fatigue Eyes: Denies: change in vision ENMT: Reports: change in hearing; Denies: throat pain, ear or mastoid pain or nasal discharge Card: Denies: chest pain, palpitations, swelling of feet/ankles or lightheadedness Resp: Denies: dyspnea, productive cough or wheezing GI: Denies: abdominal pain, nausea, vomiting, diarrhea or constipation : Denies: flank pain, difficulty voiding, dysuria or urinary frequency Musc: Denies: neck pain, back pain or joint pain Skin/Breast: Denies: rash Neuro: Reports: dizziness; Denies: headache(s), numbness in extremities, weakness in extremities, sensory changes, confusion, Slurred speech present, seizure-like activity or involuntary movements PFSH ED PFSH: Medical History Opioid contract exists Obstructive sleep apnea History of sleep study Grief at loss of child Bipolar 2 disorder Nicotine dependence, cigarettes, with unspecified nicotine-induced disorders Migraine without aura and with status migrainosus, not intractable Essential (primary) hypertension Menopausal syndrome (hot flashes) GERD (gastroesophageal reflux disease) Acquired hypothyroidism Seizure disorder Surgical History History of surgical removal of skin lesion hx lesion removal from lip History of placement of ear tubes H/O section H/O knee surgery Family History Father Diabetes Hypertension CAD (coronary artery disease) Hyperlipidemia Heart disease Grandfather CAD (coronary artery disease) Sister Diabetes Thyroid disease Social History Smoking and tobacco/nicotine status: current every day tobacco/nicotine user (5 cigarettes daily) cigarettes Packs smoked per day: 1 Alcohol intake: never Substance/Drug Use: never Physical Exam Const: COMMON NORMALS: no acute distress, patient oriented x3 and no limitations GENERAL APPEARANCE: cooperative, comfortable and well developed ORIENTATION/CONSCIOUSNESS: Yes awake, Yes oriented to person, Yes oriented to place and Yes oriented to time OTHER: Nontoxic-appearing, no focal neurological deficit HENMT: COMMON NORMALS: normocephalic, atraumatic, hearing grossly normal bilaterally, external ears normal, EAC's normal and TM's normal bilaterally HEAD & SCALP: normocephalic and atraumatic EXTERNAL EAR: Yes external ears normal EXTERNAL AUDITORY CANAL: EAC's normal TYMPANIC MEMBRANE: TM's normal bilaterally Eye: COMMON NORMALS: Equal, round and reactive pupils present, EOMs intact bilaterally and conjunctivae normal CONJUNCTIVA: Yes conjunctivae normal PUPIL: Yes Equal, round and reactive pupils present Neck/C-Spine: COMMON NORMALS: full ROM, supple and no JVD Resp: COMMON NORMALS: normal respiratory effort, No retractions, No use of accessory muscles and clear to auscultation bilaterally AUSCULTATION: clear to auscultation bilaterally Cardio: COMMON NORMALS: no JVD, regular rate, regular rhythm, No clicks present (Cardio), No murmurs present (Cardio) and No rub (Cardio) RATE: regular rate RHYTHM: regular rhythm Extremity: COMMON NORMALS: normal to inspection, full ROM and capillary refill normal Neuro: COMMON NORMALS: patient oriented x3, CN's II-XII intact bilaterally, moves all extremities, no focal motor deficits and no sensory deficits noted SENSORIUM/ORIENTATION: Yes oriented to person, Yes oriented to place and Yes oriented to time Skin: COMMON NORMALS: no rashes or lesions noted GENERAL SKIN EXAM: no rashes or lesions noted Course Vital Signs: Vital signs: Vital Signs Temperature 97.7 F 02/23/25 15:34 Pulse Rate 88 02/23/25 17:07 Blood Pressure 110/76 02/23/25 17:07 Pulse Oximetry 98 02/23/25 17:07 Oxygen Delivery Me thod Room Air 02/23/25 16:47 MDM - Ear Medical Decision Making Patient presenting with dizziness for the past few days, which is exacerbated positionally, also acute on chronic hearing loss to the left ear. She sees ear nose throat historically, has not seen them since her symptoms began. No focal neurological deficit on exam, I do not have suspicion of cerebrovascular accident or acute otic issue as TM examination normal. I suspect BPPV, will start on meclizine. Other etiology include M?ni?re's disease, labyrinthitis, vestibular neuritis, or acoustic neuroma and she is informed to follow-up with ENT for further evaluation and to return with any focal neurological deficit or worsening of symptoms. She agrees with this plan. Stable for discharge at this time. No radiology studies performed this visit Discharge Plan Discharge Patient Disposition: Home Clinical Impression: Benign paroxysmal positional vertigo Condition: Stable Prescriptions: New meclizine 50 mg tablet 50 mg PO DAILY PRN (Reason: dizziness) Qty: 30 0RF No Action potassium chloride 20 mEq tablet extended release 20 meq PO DAILY ranolazine 500 mg tablet extended release 12 hr 500 mg PO BID metoprolol tartrate 25 mg tablet 25 mg PO DAILY Mounjaro 10 mg/0.5 mL pen injector 10 mg SUBCUT Q7D amlodipine [Norvasc] 2.5 mg tablet 2.5 mg PO DAILY amitriptyline 50 mg tablet 50 mg PO DAILY (DME) Auto Titrating CPAP set to 12-16 with supplies See Rx Instructions .Route .MEDSUPPLY Qty: 1 0RF Rx Instructions: As directed ropinirole 2 mg tablet 2 mg PO BID clonidine HCl 0.1 mg tablet See Rx Instructions .ROUTE .COMPLEX Rx Instructions: TAKE 1 TABLET BY MOUTH EVERY DAY NEEDED FOR BLOOD PRESSURE GREATER THAN 180/110 simvastatin 20 mg tablet 20 mg PO DAILY olopatadine 0.1 % drops 1 drp ophthalmic (eye) BID Qty: 5 0RF Rx Instructions: separate doses by at least 6-8 hours Discharge Orders: Discharge ED (Routine); Ordered 02/23/25 Ordered By: Nain Mercedes Referrals: Raina Bermeo PA [Primary Care Provider, [facility]] Patient Instructions: Patient Portal & [place] Instructions Activity Restrictions/Additional Instructions: BPPV Discharge Instructions Diagnosis: Benign paroxysmal positional vertigo (BPPV) of the left ear. Treatment Plan: - First-line therapy: Canalith repositioning maneuvers (CRM), such as the Lm or Semont maneuvers, are the most effective and evidence-based treatment for posterior canal BPPV. These maneuvers can be performed in the clinic or by trained patients at home, and typically result in rapid symptom resolution in the majority of cases. - Medication: Meclizine 50 mg daily has been prescribed for short-term symptomatic relief. The use of vestibular suppressants is not recommended as primary therapy for BPPV, but may be considered for patients with persistent mild symptoms after CRM or for those unable to tolerate maneuvers. Meclizine should be used for the shortest duration possible, ideally no longer than 3?5 days, due to risk of sedation, cognitive impairment, and increased fall risk, especially in older adults. - Follow-up: Patient is instructed to follow up with her established ENT physician for reassessment and further management as needed. Return Precautions: Advise immediate return to the emergency department or clinic for any of the following: - New or worsening neurological symptoms (e.g., double vision, slurred speech, limb weakness, numbness, severe headache, difficulty walking) - Persistent vomiting or inability to tolerate oral intake - Sudden hearing loss or tinnitus - Chest pain, palpitations, or syncope Other Treatment Options: - Repeat CRM: If symptoms persist, repeat canalith repositioning maneuvers may be performed, as success rates increase with repetition. - Vestibular rehabilitation: For refractory or atypical cases, referral for vestibular rehabilitation may be considered. - Surgical intervention: Rarely indicated, reserved for intractable, disabling symptoms unresponsive to CRM and medical therapy. Differential Diagnosis Discussion: - M?ni?re's disease: Characterized by episodic vertigo, fluctuating sensorineural hearing loss, tinnitus, and aural fullness. Unlike BPPV, vertigo episodes last longer (20 minutes to hours) and are not consistently triggered by positional changes. - Labyrinthitis: Presents with acute onset of vertigo, hearing loss, and tinnitus, often following a viral illness. Vertigo is persistent rather than episodic and may be associated with unilateral hearing loss. - Vestibular neuritis: Presents with acute, prolonged vertigo (lasting days), gait instability, and nausea, but without hearing loss. Vestibular rehabilitation is the mainstay of therapy. Patient Education: - BPPV is a benign, recurrent condition caused by displacement of otoconia ( ear crystals ) into the semicircular canals, leading to brief episodes of vertigo with head movement. - Most cases resolve with CRM; recurrence is common and self-treatment may be possible with proper instruction. - Meclizine may cause drowsiness and should be used with caution; avoid driving or operating heavy machinery while taking this medication. - Falls risk is increased during active vertigo episodes; advise caution with ambulation and consider home safety modifications if needed. - Reassessment within 1 month is recommended to ensure symptom resolution and exclude other causes if symptoms persist. Summary: BPPV is best managed with canalith repositioning maneuvers. Meclizine may be used briefly for symptom control but is not a substitute for CRM. Follow-up and vigilance for alternative diagnoses are essential. Print Language: Irish Coding Level of Care Code ED Print Developer for Giovanny Altamirano
== END 2025-02-23 17:08 | disposition home or self-care (01) ==
PROVIDERS: Emergency Provider Physician Assistant; PCP Physician Assistant
DX: H81.12 Benign paroxysmal vertigo, left ear (principal); I10 Essential (primary) hypertension
CPT/HCPCS: 99283

== ENCOUNTER 2025-05-13 22:50 | Emergency (ER) | payer BC, SELFPAY ==
--- OUTSIDE RECORDS SUMMARY | 2024-10-28 04:00 | XMS_ITS ---
Author Organization [facility] Address [address] [place] [address] Care Team Providers Care Commercial Roofer Name Role Phone Jean-Claude ALEXIS, Raina Primary Care Provider Frakno Marrero [phone] REASON FOR VISIT [id number] Encounters Encounter Location Date Provider Diagnosis [facility] [address] [place] [address] [place] [address] 10/28/2024 Franko Salomon Plan Of Treatment Next Appt Details Provider Name:Pardeep Anaya, 06/01/2025 01:00:00 PM, [facility] [place], [address], Provider Name:Franko Salomon, 03/22/2026 01:20:00 PM, [address] [place] [address] [place], [address], Progress Notes * JOSE J DIXON MDOB:1975 (49 yo F)Acc No.[id number]:10/28/2024 Pulmonary Function Test Patient: Kayla BAUM JOSE J Andrade Provider: Radha Salomon MD :1975 A ge:48 Y S ex:Female Date:10/28/2024 Address:[address] [place], [id number] Pcp:REUBEN Ravi Subjective: * Chief Complaints: * [id number] Billing Information: * Procedure Codes: * Electronic signature of Yanet Salomon MD on 05/13/2025 at 10:55 PM FLIGHT SERVICE AGENT Sign off status: Pending * Provider: Radha Salomon MD Date: 0 10/28/2024 Generated for Rosi santos/Jose Antonio/Aj on: 1 07/14/2024 10:55 PM FLIGHT SERVICE AGENT
--- OUTSIDE RECORDS SUMMARY | 2025-05-13 22:55 | XMS_ITS | Data Portability ---
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 Plan of Treatment Reminders Order Date Submit Date Provider Last Modified By Organization Details Last Modified Time Details Appointments None recorded. Lab hemoglobin A1C/hemoglo bin total, QN, blood 2024 025 [facility], [address] [facility], [address], [place], [address], 17:44:20 CBC 2024 025 [facility], [address] [facility], [facility], [place], [address], 17:27:53 CMP, serum or plasma 2024 025 [facility], [address] [facility], [address], [place], [address], 13:15:06 Referral primary care provider referral 2024 025 [email or web address] Not available 09:56:31 Procedures colonoscopy screening (PROC) - Referring provider Charles Bermeo 2024 025 [email or web address] [facility], [address] , [place], [address], 17:11:20 Surgeries None recorded. Imaging MAMMO, screening, digital, bilateral 2024 025 [email or web address] 2 [facility] (Scheduling Orders), [address] [place], [address], 16:02:32 XR, chest, 2 view 2024 025 [email or web address] 1 [facility] ([facility]), [address] [place], [address], 14:32:39 Medication Orders chlorthalid one 25 mg tablet 2024 025 [facility]acy #[id number], [address] [facility], [facility] [address], [address], 12:34:21 Mounjaro 15 mg/0.5 mL subcutaneou s pen injector 2024 025 [facility]/Ph[facility]acy #[id number], [address] [facility] [address], [address], 16:14:26 Patient TargetsNo targets recorded. Patient InstructionsNo instructions recorded. Reason for Referral Primary Care Provider Referr al for Screening for malignant neoplasm of colon Referring Physician: Raina Bermeo, Family Medicine, Encounter Date: 01/05/2025 Results Created Date Observation Date Name Description Value Unit Range Abnormal Flag Note LastModifiedBy Organization Detail LastModifiedTime 01/06/2001/05/2025 CBC WBC 8.5 x10 4.0-10 .5 Not Available [facility] [address] [facility] [address], [place], [address], 01/05/2025 17:27:53 01/06/2001/05/2025 CBC RBC 4.93 x10 3.50-5 .50 Not Available [facility] [address] [facility], [place], [address], 01/05/2025 17:27:53 01/06/2001/05/2025 CBC HGB 14.7 g/dL 12.0-1 6.0 Not Available [facility] [address] [facility] 1, [place], [address], 01/05/2025 17:27:53 01/06/2001/05/2025 CBC HCT 45.8 % 37.0-4 7.0 Not Available [facility] [address] [facility] 1, [place], [address], 01/05/2025 17:27:53 01/06/2001/05/2025 CBC MCV 92.9 fL 80.0-9 9.9 Not Available [facility] [address] [facility] 1, [place], [address], 01/05/2025 17:27:53 01/06/20 25 01/05/2025 CBC MCH 29.8 pg 27.0-3 2.0 Not Available [facility] [address] [facility] 1, [place], [address], 01/05/2025 17:27:53 01/06/20 25 01/05/2025 CBC MCHC 32.1 g/dL 32.0-3 6.0 Not Available [facility] [address] [facility] 1, [place], [address], 01/05/2025 17:27:53 01/06/2001/05/2025 CBC RDW 13.6 % 11.5-1 4.5 Not Available [facility] [address] [facility] 1, [place], [address], 01/05/2025 17:27:53 01/06/20 25 01/05/2025 CBC plt 304.5 x10 140.0- 451.0 Not Available [facility] [address] [facility] 1, [place], [address], 01/05/2025 17:27:53 01/06/20 25 01/05/2025 CBC lymphocytes % 23.1 % 20.0-5 0.0 Not Available [facility] [address] [facility] 1, [place], [address], 01/05/2025 17:27:53 01/06/20 25 01/05/2025 CBC granulcytes % 66.4 % 30.0-7 0.0 Not Available [facility] [address] [facility] [address], [place], [address], 01/05/2025 17:27:53 01/06/20 25 01/05/2025 CBC monocytes % 5.8 % 2.0-16 .0 Not Available [facility] [address] [facility] 1, [place], [address], 01/05/2025 17:27:53 01/06/20 25 01/05/2025 CBC granulcytes# 5.6 x10 Not Colleen ilable [facility] [address] [facility] [address], [place], [address], 01/05/2025 17:27:53 01/06/20 25 01/05/2025 CBC lymphocytes # 2.0 x10 Not Available [facility] [address] [facility] 1, [place], [address], 01/05/2025 17:27:53 01/06/20 25 01/05/2025 CBC monocytes # 0.5 x10 Not Avai lable [facility] [address] [facility] 1, [place], [address], 01/05/2025 17:27:53 01/06/20 25 01/05/2025 HBA1C hemaglobin A1C 6.5 4.2-6. 5 Not Available [facility] [address] [facility], [place], [address], 01/05/2025 17:44:20 01/06/20 25 01/06/2025 CMP (FEMA LE) glucose 103.0 mg/dL 60.0-9 9.0 high Not Available [facility] [address] [facility], [place], [address], 01/06/2025 13:15:06 01/06/20 25 01/06/2025 CMP (FEMA LE) BUN (blood urea nitrogen) 16.0 mg/dL 10.0-2 6.0 Not Available [facility] [address] [facility], [place], [address], 01/06/2025 13:15:06 01/06/20 25 01/06/2025 CMP (FEMA LE) creatinine (serum) 0.9 mg/dL 0.4-1. 5 Not Available [facility] [address] [facility] 1, [place], [address], 01/06/2025 13:15:06 01/06/20 25 01/06/2025 CMP (FEMA LE) BUN/creatini ne ratio 17.78 ratio Not Available [facility] [address] [facility], [place], [address], 01/06/2025 13:15:06 01/06/20 25 01/06/2025 CMP (FEMA LE) eGFR calculated 71.3 Not Available [facility] [address] [facility], [place], [address], 01/06/2025 13:15:06 01/06/20 25 01/06/2025 CMP (FEMA LE) total protein 7.7 g/dL 6.0-8. 5 Not Available [facility] [address] [facility], [place], [address], 01/06/2025 13:15:06 01/06/20 25 01/06/2025 CMP (FEMA LE) total bilirubin 0.5 mg/dL 0.2-1. 3 Not Available [facility] [address] [place] [facility], [place], [address], 01/06/2025 13:15:06 01/06/20 25 01/06/2025 CMP (FEMA LE) albumin 4.1 g/dL 3.5-5. 5 Not Available [facility] [address] [place] [facility], [place], [address], 01/06/2025 13:15:06 01/06/2001/06/2025 CMP (FEMA LE) globulin 3.6 calc Not Available [facility] [address] [facility] 1, [place], [address], 01/06/2025 13:15:06 01/06/2001/06/2025 CMP (FEMA LE) AST (SGOT) 20.0 U/L 0.0-46 .0 Not Available [facility] [address] [facility] 1, [place], [address], 01/06/2025 13:15:06 01/06/2001/06/2025 CMP (FEMA LE) altv (SGPT) 24.0 U/L 13.0-6 9.0 normal Not Available [facility] [address] [place] [facility], [place], [address], 01/06/2025 13:15:06 01/06/20 25 01/06/2025 CMP (FEMA LE) A/G ratio 1.1 ratio Not Available [facility] [address] [facility] 1, [place], [address], 01/06/2025 13:15:06 01/06/20 25 01/06/2025 CMP (FEMA LE) ALP phos 91.0 U/L 30.0-1 40.0 normal Not Available [facility] [address] [place] [facility], [place], [address], 01/06/2025 13:15:06 01/06/2001/06/2025 CMP (FEMA LE) calcium 9.3 mg/dL 8.4-10 .5 Not Available [facility] [address] [facility] 1, [place], [address], 01/06/2025 13:15:06 01/06/2001/06/2025 CMP (FEMA LE) sodium 140.0 mmol/ L 136.0- 145.0 Not Available [facility] [address] [facility] 1, [place], [address], 01/06/2025 13:15:06 01/06/2001/06/2025 CMP (FEMA LE) potassium 4.0 mmol/ L 3.5-5. 1 Not Available [facility] [address] [facility] 1, [place], [address], 01/06/2025 13:15:06 01/06/2001/06/2025 CMP (FEMA LE) chloride 106.0 mmol/ L 98.0-1 10.0 normal Not Available [facility] [address] [facility] 1, [place], [address], 01/06/2025 13:15:06 01/06/2001/06/2025 CMP (FEMA LE) C02 27.0 mmol/ L 22.0-3 1.0 Not Available [facility] [address] [facility] 1, [place], [address], 01/06/2025 13:15:06 01/06/2001/06/2025 CMP (FEMA LE) anion gap 7.0 calc Not Available [facility] [address] [facility] [address], [place], [address], 01/06/2025 13:15:06 01/06/2001/06/2025 CMP (FEMA LE) osmolality 290.5 calc Not Available [facility] [address] [facility] [address], [place], [address], 01/06/2025 13:15:06 08/28/1907/28/2024 XR, chest , 1 view No observ ation record ed. [email or web address] Not Available 08/30 08:44:07 09/18/19 25 09/17/2024 XR, chest , 2 view No observ ation record ed. [email or web address] [facility] ([facility]) [address] [place], [address], 09/21/2024 14:00:53 09/18/1909/17/2024 XR, chest , 2 view No observ ation record ed. DEDRICK [facility] ([facility]) [address] [place], [address], 09/21/2024 16:42:06 03/21/20 25 03/10/2025 colon oscop y proce dure (PROC ) No observ ation record ed. [address] [facility] [address], [place], [address], 03/21/2025 14:54:05 Result Notes None recorded. Problems Name Problem SNOMED Code Status Onset Date Resolution Date Notes Provider Name and Address Organization Details Recorded Time Obstruct doc sleep apnea of adult 47188019431 03 Active 2022 KHUSHBU rojas [place] [facility] 09:20:35 Nicotine dependen ce 29621464 Active 2022 KHUSHBU rojas [facility] 5 09:20:32 [facility] samantha 41897036 Active 2022 KHUSHBU MATTARIK [facility] 5 09:20:18 Hypercho lesterol emia 69514679 Active 2022 KHUSHBU TALBERT [facility] 5 09:20:20 Bipolar disorder 79294228 Active 2022 KHUSHBU TALBERT [facility] 5 09:20:12 Restless legs syndrome 49006402 Active 2022 KHUSHBU TALBERT [facility] 5 09:20:38 Screenin g for malignan t neoplasm of colon Completed 202207/23/2024 Removal Reason: resolved KHUSHBU MATTARIK [facility] 5 09:20:47 Diabetes mellitus 55540205 Active 2022 KHUSHBU KENYONMICHELLE [facility] 5 09:20:15 Hypokale david 68553337 Completed 202307/23/2024 Removal Reason: resolved KHUSHBU LUISMARLENI [facility] 5 09:20:29 Problem Notes None recorded. Procedures Surgical History Date Name Laterality Status Provider Name and Address Organization Details Recorded Time colonoscopy completed KHUSHBULILA TALBERT [facility] 03/15/2025 17:59:50 ligation of bilateral fallopian tubes completed [facility] NITISH [facility] 02/13/2023 07:43:22 Imaging Results None recorded. Procedure Notes None recorded. Medical Equipment None Reported. Allergies Allergen ID Allergen Name Allergen Category Reaction Reaction Severity Criticality Documentation Date Start Date Code Code System Note Provider Name and Address Organization Details Recorded Time 565[address] [facility] medicatio n Not available Not available Not available 02/13/2023 74029 2 RxNorm KHUSHBU HAMICHELLE rojas [facility] 3 11:09:53 Medications Name Sig Start Date Stop Date Status Note LastModified by Organization Details LastModified Time Prescript ion - Renewal active Not Available Not Available Not Available hydralazi ne 10 mg tablet TAKE 1 TABLET BY MOUTH THREE TIMES DAILY NEEDED HYPERTEN SAMANTHA 02/13 completed Not Available Not Available Not Available clonidine HCl 0.1 mg tablet Take 1 tablet every day by oral route as needed, for BP >180/110 . 2024 active Not Available Not Available Not Avai lable ropinirol e 1 mg tablet TAKE 1 TABLET BY MOUTH TWICE DAILY active Not Available Not Available No t Available meclizine 50 mg tablet TAKE 1 TAB ORALLY DAILY NEEDED FOR DIZZINES S active Not Available Not Available No t Available triazolam 0.25 mg tablet TAKE 2 PILLS BY MOUTH 1 AND 1/2 HOURS BEFORE APPOINTM ENT 08/28 completed Not Available Not Available Not Available tizanidin e 4 mg tablet TAKE 1 TABLET BY MOUTH EVERY 8 HOURS NEEDED 07/23 completed Not Available Not Available Not Available isosorbid e mononitra te ER 30 mg tablet,ex tended release 24 hr TAKE 1 TABLET BY MOUTH DAILY 07/18 completed Not Available Not Available Not Available rizatript an 10 mg tablet TAKE 1 TABLET BY MOUTH NEEDED FOR MIGRAINE 02/13 completed Not Available Not Available Not Available sertralin e 100 mg tablet TAKE 1 TABLET BY MOUTH DAILY 07/23 completed Not Available Not Available Not Available permethri n 5 % topical cream APPLY NECK DOWN TO FEET OVERNIGH T EVERY 8 HOURS. WASH OFF IN THE MORNING. REPEAT IN 1 WEEK. 10/22 completed Not Available Not Available Not Available amlodipin e 2.5 mg tablet TAKE 1 TABLET BY MOUTH EVERY DAY FOR 30 DAYS 2024 active Not Available Not Available Not Avai lable acetamino phen 300 mg-codein e 30 mg tablet TAKE 2 TABLETS BY MOUTH EVERY 4 HOURS NEEDED 02/13 completed Not Available Not Available Not Available chlorthal idone 25 mg tablet Take 1 tablet every day by oral route as needed for 30 days. 2024 active Not Available Not Available Not Avai lable chlorthal idone 50 mg tablet TAKE 1 TABLET BY MOUTH EVERY DAY 11/27 completed Not Available Not Available Not Available amitripty line 50 mg tablet TAKE 1 TABLET BY MOUTH EVERY DAY FOR 30 DAYS active Not Available Not Available No t Available triamcino lone acetonide 0.1 % topical cream APPLY THIN LAYER TOPICALL Y TO THE AFFECTED AREA TWICE DAILY 07/18 completed Not Available Not Available Not Available meloxicam 7.5 mg tablet Take 1 tablet every day by oral route as needed. 07/23 completed Not Available Not Available Not Available lorazepam 0.5 mg tablet TAKE 1 TABLET BY MOUTH TWICE DAILY NEEDED FOR ANXIETY active Not Available Not Available No t Available ropinirol e 2 mg tablet TAKE 1 TABLET BY MOUTH TWICE A DAY 2024 active Not Available Not Available Not Avai lable pantopraz ole 40 mg tablet,de layed release Take 1 tablet every day by oral route for 30 days. 05/28 completed Not Available Not Available Not Available simvastat in 20 mg tablet TAKE 1 TABLET BY MOUTH EVERY DAY 2024 active Not Available Not Available Not Avai lable triamcino lone acetonide 0.1 % topical ointment 08/15 completed Not Available Not Available Not Available lisinopri l 10 mg tablet TAKE 1 TABLET BY MOUTH DAILY AT 8 AM 05/27 completed Not Available Not Available Not Available diclofena c sodium 75 mg tablet,de layed release TAKE 1 TABLET BY MOUTH TWICE DAILY 07/18 completed Not Available Not Available Not Available hydroxyzi ne HCl 25 mg tablet TAKE 1 TABLET BY MOUTH EVERY 8 HOURS NEEDED FOR ITCHING 02/13 completed Not Available Not Available Not Available zolpidem 5 mg tablet TAKE 1 TABLET BY MOUTH AT BEDTIME 04/29 completed Not Available Not Available Not Available metoprolo l succinate ER 25 mg tablet,ex tended release 24 hr TAKE 1 TABLET BY MOUTH EVERY DAY 2024 active Not Available Not Available Not Avai lable azelastin e 137 mcg (0.1 %) nasal spray ADMINIST ER 2 SPRAYS IN EACH NOSTRIL 2 TIMES DAILY. active Not Available Not Available No t Available zolpidem 10 mg tablet 02/13 completed 0; Recorded 06/26/19 13 10:58AM by Ej Romo MD, Office Visit; Not Available Not Available Not Available sertralin e 50 mg tablet TAKE 1 TABLET BY MOUTH DAILY 02/13 completed Not Available Not Available Not Available lamotrigi ne 100 mg tablet TAKE 1 TABLET BY MOUTH DAILY active Not Available Not Available No t Available Abilify 5 mg tablet daily 02/13 completed 0; Recorded 06/26/19 13 10:56AM by Ej Romo MD, Office Visit; Not Available Not Available Not Available nitrofura ntoin monohydra te/macroc rystals 100 mg capsule TAKE 1 CAPSULE BY MOUTH TWICE DAILY WITH FOOD/NICOLE L FOR 5 DAYS 02/13 completed Not Available Not Available Not Available ranolazin e ER 500 mg tablet,ex tended release,1 2 hr TAKE 1 TABLET BY MOUTH TWICE A DAY active Not Available Not Available No t Available varenicli ne tartrate 1 mg tablet Take 1 tablet twice a day by oral route. 07/23 completed Not Available Not Available Not Available Chantix daily 02/13 completed Recorded 06/26/19 13 11:07AM by Ej Romo MD, Office Visit; Refill Quantity : 30; Tablet; Not Available Not Available Not Available potassium chloride ER 20 mEq tablet,ex tended release TAKE 1 TABLET BY MOUTH EVERY DAY 07/23 completed Not Available Not Available Not Available Ozempic 1 mg/dose (4 mg/3 mL) subcutane ous pen injector INJECT 1MG UNDER THE SKIN EVERY WEEK 01/20 completed Not Available Not Available Not Available Mounjaro 15 mg/0.5 mL subcutane ous pen injector INJECT 15 MG SUBCUTAN EOUSLY ONE TIME PER WEEK FOR 28 DAYS active Not Available Not Available No t Available Mounjaro 10 mg/0.5 mL subcutane ous pen injector INJECT 10 MG SUBCUTAN EOUSLY WEEKLY 01/05 completed Not Available Not Available Not Available Ozempic 0.25 mg or 0.5 mg (2 mg/3 mL) subcutane ous pen injector INJECT 0.25 MG UNDER THE SKIN ONCE EVERY WEEK 01/20 completed Not Available Not Available Not Available Vitals Date Recorded Body height Body mass index (BMI) Body weight Oxygen saturation Heart rate Respiratory rate Body temperature Systolic And Diastolic Provider Name and Address Organization Details Last Updated DateTime 5 177.8 cm 48.1 kg/m2 059529. 44 g 96 % 72 /min 18 /min 97.9 [degF] 140/80 mm[Hg] KHUSHBU [facility] 5 09:12:25 Date Recorded Body height Body mass index (BMI) Body weight Oxygen saturation Heart rate Respiratory rate Body temperature Systolic And Diastolic Provider Name and Address Organization Details Last Updated DateTime 5 177.8 cm 47.2 kg/m2 812372. 89 g 97 % 70 /min 18 /min 97 [degF] 138/80 mm[Hg] [facility] 5 10:08:55 Date Recorded Body height Body mass index (BMI) Body weight Oxygen saturation Heart rate Respiratory rate Body temperature Systolic And Diastolic Provider Name and Address Organization Details Last Updated DateTime 5 177.8 cm 48.8 kg/m2 338670. 41 g 97 % 76 /min 18 /min 97.2 [degF] 136/80 mm[Hg] KHUSHBU [facility] 5 15:20:33 Date Recorded Body height Body mass index (BMI) Body weight Oxygen saturation Heart rate Respiratory rate Systolic And Diastolic Provider Name and Address Organization Details Last Updated DateTime 5 177.8 cm 48.8 kg/m2 545413. 11 g 95 % 94 /min 18 /min 110/80 mm[Hg] Andra Barnhart [facility] 5 10:50:54 Date Recorded Body height Body mass index (BMI) Body weight Oxygen saturation Heart rate Respiratory rate Body temperature Systolic And Diastolic Provider Name and Address Organization Details Last Updated DateTime 177.8 cm 47.3 kg/m2 435275. 48 g 96 % 88 /min 20 /min 98 [degF] 122/70 mm[Hg] KHUSHBU TALBERT [facility] 11:47:29 Social History Question Answer Notes LastModified by [employer] Details LastModified Time Tobacco Smoking Status Current Every Day Smoker RAINA BERMEO PA-C [address] [place] [address], [address], [facility] 02/13/2023 11:40:41 What Was The Date Of Your Most Recent Tobacco Screening? 02/13/2023 [email or web address] Information not available 02/13/2023 What Is Your Current Pack Years? 20-29packyea rs [email or web address] Information not available 02/13/2023 At What Age Did You Start Smoking Tobacco? 20 Information not available 02/13/2023 How Much Tobacco Do You Smoke? 0.5 PPD [email or web address] Information not available 02/13/2023 Has Tobacco Cessation Counseling Been Provided? Yes Information not available 02/13/2023 On What Date Was Tobacco Cessation Counseling Provided? 02/13/2023 Information not available 02/13/2023 Sex: Unknown Functional Status Question Answer Note LastModified by [employer] Details LastModified Time Do you use any illicit or recreational drugs? No [email or web address] Information not available 02/13/2023 Do you or have you ever used any other forms of tobacco or nicotine? No [email or web address] Information not available 02/13/2023 Mental Status None recorded. Family History Relationship Description Onset Age of this Age Resolved Age Notes LastModified by Organization Details LastModified Time Father Diabetes mellitus Not available 2022 11:31:09 Medical History Condition Response Hypertension Y Gynecological HistoryNo gynecological history recorded. Obstetrics History GPAL:G 0 P 0 0 0 0 Immunizations Vaccine Type Date Status Note Provider Nam e and Address Organization Details Recorded Time COVID-19, mRNA, LNP-S, PF, 100 mcg/0.5mL dose or 50 mcg/0.25mL dose 1 completed RAINA BERMEO PA-C [address] [place], [address], [facility] 02/13/2023 11:24:33 COVID-19, mRNA, LNP-S, PF, 100 mcg/0.5mL dose or 50 mcg/0.25mL dose 1 completed RAINA BERMEO PA-C [address] [place], [address], [facility] 02/13/2023 11:24:33 COVID-19, mRNA, LNP-S, PF, 100 mcg/0.5mL dose or 50 mcg/0.25mL dose 2 completed RAINA BERMEO PA-C [address] [place], [address], [facility] 02/13/2023 11:24:33 Hep B, unspecified formulation 7 completed RAINA BERMEO PA-C [address] [place], [address], [facility] 02/13/2023 11:24:33 Hep B, unspecified formulation 7 completed RAINA BERMEO PA-C [address] [place], [address], [facility] 02/13/2023 11:24:33 Hep B, unspecified formulation 6 completed RAINA BERMEO PA-C [address] [place], [address], [facility] 02/13/2023 11:24:33 MMR 4 completed [facility] 02/11/2024 14:11:16 COVID-19, mRNA, LNP-S, PF, elizabeth-sucrose, 30 mcg/0.3 mL 4 completed Kesha rojas [facility] 02/11/2024 14:11:16 MMR 4 completed Not Available [facility] 02/24/2025 11:38:57 COVID-19, mRNA, LNP-S, PF, elizabeth-sucrose, 30 mcg/0.3 mL 4 completed Not Available [facility] 02/24/2025 11:38:57 Tdap 4 completed RAINA BERMEO PA-C [address] [place] [address], [address], [facility] 06/17/2023 16:49:15 Past Encounters Encounter ID Performer Location Encounter Start Date Encounter Closed Date Diagnosis/Indication Diagnosis SNOMED-CT Code Diagnosis ICD10 Code Diagnosis IMO Codes Diagnosis Note [id number] RAINA BERMEO PA-C [facility] ([facility]) [address] [place] [id number] 02/13/2023 10:26:56 02/13/2023 13:14:47 Restless legs syndrome 31607559 G25.81 Bipolar disorder 7152732 4 F31.9 managed by Sharla Adams Hypercholesterolemia 136 17563 E78.00 Essential hypertension 82043471 I10 Screening for malignant neoplasm of breast 376691686 Z12.39 Screening for malignant neoplasm of colon 493104835 Z12.11 Dr. Eden for screening colonoscop y Nicotine dependence 5629 4008 F17.200 Obstructiv e sleep apnea of adult 8199027841 103 G47.33 [id number] Thony Eden DO [facility] ([facility]) [address] [place] [address] [phone] 5 03/25/2023 08:07:00 03/25/2023 08:39:29 Screening for malignant neoplasm of colon 126231113 Z12.11 I have reviewed and discussed colon cancer screening options, including colonoscop y. Discussed risks vs benefits including risk of infection and bleeding, perforatio n, possible need for surgery, reaction to medication s, and sever injury or . We discussed pt requiring sedation and possible general anesthesia . Pt agrees to proceed with Colonoscop y at [facility]. Preliminar y procedure date will be 04/24/23 Obstructiv e sleep apnea of adult [id number] 103 G47.33 continue CPAP nightly Essential hypertension 37431713 I10 stay on BP meds. [id number] NATACHA TELLEZ [facility] ([facility]) [address] [place] [address] [phone] 5 04/01/2023 13:46:05 04/01/2023 18:03:02 Swelling of bilateral lower limbs 562684914 M79.89 Will get CBC, CMP and BNP today for CHF rule out. Will call with results. Respiratory crackles 484 34936 R09.89 Chest x-ray shows mild cardiomega ly. Recommend keeping follow up with cardiologi st in 2 days. Will adjust treatment pending lab results. If any chest pain occurs or SOB worsens, need to go to ED. Patient is agreeable to plan of care. [id number] RAINA BERMEO PA-C [facility] ([facility]) [address] [place] [address] [phone] 5 04/24/2023 15:28:05 05/02/2023 08:10:57 Essential hypertension 35274015 I10 Atopic dermatitis 838672 01 L20.9 Diabetes mellitus 098229 09 E11.9 [id number] RAINA BERMEO PA-C [facility] ([facility]) [address] [place] [address] [phone] 5 05/27/2023 11:42:46 05/27/2023 14:05:45 History and physical examination, school 45380932 Z02.0 forms filled out and cleared for school Administra tion of diphtheria, pertussis, and tetanus vaccine 606218052 Z23 Essential hypertension 91501082 I10 [id number] Walker Esquivel MD [facility] ([facility]) [address] [place] [address] [phone] 5 05/29/2023 17:26:09 06/01/2023 04:05:28 [id number] RAINA BERMEO PA-C [facility] ([facility]) [address] [place] [address] [phone] 5 07/18/2023 11:01:27 07/18/2023 16:02:09 Essential hypertension 42853290 I10 Diabetes mellitus 952277 09 E11.9 Atopic dermatitis 887162 01 L20.9 Restless l egs syndrome 55529046 G25.81 Bipolar disorder 3822092 4 F31.9 managed by Sharla Adams [id number] RAINA BERMEO PA-C [facility] ([facility]) [address] [place] [address] 38414-657 5 08/29/2023 12:50:07 09/08/2023 12:31:53 Essential hypertension 98533863 I10 BPs are good. in range. no change in meds. Benign par oxysmal positional vertigo 931958551 H81.10 handout of epply maneuvers to perform at home. explained to pt. [id number] RAINA BERMEO PA-C [facility] ([facility]) [address] [place] [address] [phone] 5 09/17/2023 14:42:04 09/17/2023 15:53:40 Chronic low back pain 709170025 M54.50 She will continue to use Ibuprofen 800 mg po tid OTC [id number] RAINA BERMEO PA-C [facility] ([facility]) [address] [place] [address] [phone] 5 10/23/2023 09:07:27 10/23/2023 10:16:34 Restrictive lung disease 25588526 J98.4 Diabetes mellitus 927916 09 E11.9 [id number] RAINA BERMEO PA-C [facility] ([facility]) [address] [place] [address] 76246-629 5 2023 11:58:23 10/31/2023 09:38:57 Essential hypertension 38498340 I10 BPs are good. in range. no change in meds. Hypokalemia 81204136 E87 .6 Diabetes mellitus 137327 09 E11.9 [id number] RAINA BEREMO PA-C [facility] ([facility]) [address] [place] [address] 40536-923 5 11/28/2023 11:51:54 11/28/2023 15:55:49 Hypokalemia 63861692 E87.6 Essential hypertension 60016230 I10 BPs are good. in range. no change in meds. [id number] RAINA BERMEO PA-C [facility] ([facility]) [address] [place] [address] 63797-419 5 01/21/2024 14:13:41 02/09/2024 14:32:01 Pneumonitis 688231440 J18.9 in October radiologis t recommende d 3 month f/u CT to check on disease coarse. Diabetes mellitus 647454 09 E11.9 switch off ozempic. Nicotine dependence 5629 4008 F17.200 Hypokalemia 20412574 E87 .6 Cough 31948199 R05.9 POSTIVE COVID today. [id number] RAINA BERMEO PA-C [facility] ([facility]) [address] [place] [address] [phone] 5 04/29/2024 09:18:13 04/29/2024 10:00:33 Postmenopausal bleeding 21834819 N95.0 u/s in [facility] 04/28. has not had peroid in 10 yrs Gastroesop hageal reflux disease 291073576 K21.9 constant tickly in throat. Essential hypertension 11789051 I10 BPs are good. in range. no change in meds. [id number] RAINA BERMEO PA-C [facility] ([facility]) [address] [place] [address] [phone] 5 05/28/2024 10:11:54 05/28/2024 11:18:28 History and physical examination, school 08786188 Z02.0 forms filled out and cleared for school Hearing loss 67785832 H9 1.93 [id number] RAINA BERMEO PA-C [facility] ([facility]) [address] [place] [address] 95145-326 5 07/23/2024 09:15:42 07/23/2024 09:50:41 Tension-type headache 675412822 G44.209 Essential hypertension 42667422 I10 Diabetes mellitus 982438 09 E11.9 [id number] RAINA BERMEO PA-C [facility] ([facility]) [address] [place] [address], [place] [address] 5 08/27/2024 09:08:06 09/19/2024 15:16:12 Pneumonitis 730492710 J18.9 in October radiologis t recommende d 3 month f/u CT to check on disease coarse. Lung cyst 692053631 J98. 4 new on CXR from ER. 08/23/24has an appt coming up with pulmonolog ist soon Essential hypertension 68108187 I10 stable. Obstructiv e sleep apnea of adult 9692428881 103 G47.33 [id number] RAINA BERMEO PA-C [facility] ([facility]) [address] [place] [address] [phone] 5 09/17/2024 09:53:44 09/17/2024 10:53:44 Dyspnea 858359830 R06.02 [id number] Essential hypertension 79600286 I10 57733 stable. Tension-type headache 39 1418241 G44.209 [id number] she really likes the amytrytili ne. no more headaches. [id number] RAINA BERMEO PA-C [facility] ([facility]) [address] [place] [address] 01/05/2025 14:51:27 01/06/2025 14:48:30 Sebaceous cyst of skin 864242363 L72.3 72180 left axilla. monitor for now return if increases in size or looks infected. Diabetes mellitus 035522 09 E11.9 Screening mammography 24 633417 Z12.31 [id number] encoaurged pt to schedule pap smear with me since > 5 yrs to r/o cervical cancer. Screening for malignant neoplasm of colon 507922135 Z12.[id number] Eden for screening colonoscop y [id number] Thony Eden DO [facility] ([facility]) [address] [place] [address] 01/27/2025 10:10:08 01/31/2025 13:47:11 Screening for malignant neoplasm of colon 243952514 Z12.11 I have reviewed and discussed colon cancer screening options, including colonoscop y. Discussed risks vs benefits including risk of infection and bleeding, perforatio n, possible need for surgery, reaction to medication s, and sever injury or . We discussed pt requiring sedation and possible general anesthesia . Pt agrees to proceed with Colonoscop y at [facility]. Preliminar y procedure date will be 03/10/25.C ounseled on ro, skipping the dose the prior to procedure. [id number] RAINA BERMEO PA-C [facility] ([facility]) [address] [place] [address] 02/24/2025 11:38:37 02/24/2025 12:45:42 Edema of lower extremity 525348513 R60.0 40515 Health Concerns Section Related Observation LastModified by Organization Detai ls LastModified Time None Recorded Concern Status LastModified by Organization Details LastModified Time None Recorded Advance Directives Directive None Recorded Payers Insurance Date Sequence Insurance Name Policy Number Policy Bess Covered Member ID Bess Member ID Guarantor Name 03/21/2025 1 [facility] ([id number]) [id number] Radha Boyer [id number] Radha Boyer Notes Date Note Type Note Provider Name and Address Organization Details Recorded Time 5 text/html DyspneaReported by PatientHPIFor quality, patient reportssqueezing,tightness, pressure,breathlessness, andinability to take a deep breath. For context, patient reportsanxiety. For severity, patient reportsmoderate. For duration, patient reportsfor 4 weeks. For onset/timing, patient reportsweekly,at rest, andwith exertion. For pulmonary disease history, patient reportsobstructive sleep apnea. HypertensionReported by PatientHPIFor context, patient reportspositional. For associated symptoms, patient reportsshortness of breathandfatigue. For duration, patient reportshas noted for months. For onset/timing, patient reportsgradual onset. For alleviating factors, patient reportsrestandmedication. For self care, patient reportsblood pressure goal: 120/70. ER FOLLOW UP FOR SOB NEW FINDING IN RIGHT LUNG COMPARED TO 04/18 XRAY NEEDS FOLLOW UP X RAY IN 7-10 DAYS RAINA BERMEO PA-C [address] [place] [address], [phone], [facility], Don. 09/17/2024 10:24:56 5 text/html COPDReported by PatientHPI:For onset/timing, patient reportsmultiple times per day. For duration, patient reportschronic,has noted for years, andconstant. For severity, patient reportsmoderate. ER FOLLOW UP 07-28-24 CT SHOWS POSSIBLE NEW LUNG NODULE RIGHT LUNG, SEEN PULMO 08-26-24 HE SAID STARTING OF EMPHYSEMA DOING A PFT IN OCTOBER FOR HIM. RAINA BERMEO PA-C [address] [place], [address], [facility], [place] 09/17/2024 10:42:21 5 text/html Skin LesionReported by PatientHPIFor location, patient reportsaxilla(left). For quality, patient reportsitchyandgrowing gradually. For severity, patient reportsmoderate. For duration, patient reports2 weeks. For timing, patient reportsgradualandconstant. For context, patient reportsno known trigger. For aggravating factors, patient reportsnone. For prior treatments, patient reportsother treatment: drawing salve. RAINA BERMEO PA-C [address] [place] [address], [phone], [facility], LBlayneLBlayneC. 01/05/2025 17:57:23 5 text/html Colonoscopy ScreeningReported by PatientColonoscopy ScreeningFor gi symptoms, patient reportsno abdominal pain,no diarrhea,no constipation,no recent change in bowel movements,no change in the stool,no color change in stool, andno rectal bleeding. For associated symptoms, patient reportsnormal appetite,no fever,no chills,no nausea, andno vomiting. For context, patient reportsno prior examination,no history of colon polyps, andno history of ulcerative colitis or crohn's disease. For family history, patient reportsno polypsandno colon cancer.ROS as noted in the HPI The patient presents today at the request of Charles Bermeo for evaluation and discussion of colonoscopy for colon cancer screening. She admits that she has had diarrhea after eating for the last 1 month. This started after increasing Mounjaro on 01/05/25. The patient denies any recent abdominal pain, persistent constipation, bloody or dark tarry stools, or mucusy stools. Last Colon Cancer screening: NONE Problems with anesthesia in the past: NONE Family History of Colon cancers: NONE Blood Thinners: NONE Co-morbidities: BEN, HTN, DM, HLD A1c 6.5 on 01/05/25.Taking Mounjaro on each week. She c/o chronic SOB, is working on seeing Pulm. Not using any meds for it at this time. Thony Eden DO [address] [place], [address], [facility], Don. 01/27/2025 11:10:21 5 text/html EdemaReported by PatientHPIFor quality, patient reportslegs do not swell equally. For context, patient reportsprior history of edema. For associated symptoms, patient reportsshortness of breath. For location, patient reportsrleandble. For severity, patient reportsmoderate. For duration, patient reportsintermittent. For modifying factors, patient reportsnothing gives reliefandnothing makes it worse. Discuss restarting a dieuretic of some kind for edema when I have it . BP has been good so havent been taking metoprolol and amlodipine. regularly x 3 weeks I am afraid of bottoming out so I take it when I need it RAINA BERMEO PA-C [address] [place], [address], [facility], LBlayneLBlayneC. 02/24/2025 12:35:28 OBGyn Episode No OBEpisode recorded.
--- OUTSIDE RECORDS SUMMARY | 2025-05-13 22:55 | XMS_ITS | Patient Health Record ---
Author Organization [facility] Address [address] [place] [address] Care Team Providers Care Casino Surveillance Officer Name Role Phone Raina Mcmanus Primary Care Provider UnavailFranko Cerrato Unavailable [phone] Pardeep Anaya Unavailable [phone] Angela Moncada Unavailable [phone] Allergies Allergen (clinical drug ingredient) Drug/Non Drug Allergy documented on EMR Reaction Allergy Type Onset Date Status chlorhexidine Hibiclens rash Drug Allergy Act doc chlorhexidine Chlorhexidine rash Drug Allergy Active Results Component Value Reference Range Notes CT Chest w/o Contrast diagno [id number] Reviewed date:03/16/2025 04:00:07 PM Interpretation: Performing Lab: Notes/Report: [id number] Schedule Confirmation Reviewed date:03/10/2025 04:04:00 PM Interpretation: Performing Lab: Notes/Report: CT Chest w/o Contrast Schedule Confirmation Reviewed date:03/16/2025 04:00:07 PM Interpretation: Performing Lab: Notes/Report: CT Chest w/o Contrast CT Chest w/o Contrast diagno stic-[id number] Reviewed date:03/17/2025 10:00:20 AM Interpretation: Performing Lab: Notes/Report: See Below For Report CT Chest w/o Contrast Read See Below For Report Reason For Referral No Information Medications Medication SIG (Take, Route, Frequency, Duration) Notes Start Date End Date Status Mounjaro 15 MG/0.5ML Solution Auto-injector INJECT 15 MG SUBCUTANEOUSLY ONE TIME PER WEEK FOR 28 DAYS Subcutaneous; Duration: 28 Days Active amLODIPine Besylate 2.5 MG Tablet TAKE 1 TABLET BY MOUTH EVERY DAY FOR 30 DAYS Oral; Duration: 30 Days Active Sertraline HCl 100 MG Tablet TAKE 1 TABLET BY MOUTH DAILY Oral; Duration: 30 Days Active rOPINIRole HCl 2 MG Tablet TAKE 1 TABLET BY MOUTH TWICE A DAY Oral; Duration: 90 Days Active Amitriptyline HCl 50 MG Tablet TAKE 1 TABLET BY MOUTH EVERY DAY FOR 30 DAYS Oral; Duration: 30 Days Active Simvastatin 20 MG Tablet TAKE 1 TABLET B Y MOUTH EVERY DAY Oral; Duration: 90 Days Active Social History Tobacco Use: Social History Observation Description Date Details (start date - stop date) Current Smoker NA - NA Social History Tobacco Use: Social Info Question Answer Notes Tobacco Control (Standard) Tobacco use: Current smoker How many cigarettes a day do you smoke? 6-10 Additional Details Category Social Info Options Details Migrated Social History Migrated Social History Alcoholic beverages? - No, Currently on disability? - No, Drug or substance abuse? - No, Marital Status - , Nonprescription drug use? - No, Participation in detoxification or rehabilitation - No, Smoking - 1/2 PPD, Smoking status (MU) - Current everyday smoker, Working currently? - Yes Problems Problem Type SNOMED Code ICD Code Onset Dates Problem Status W/U Status Risk Notes Problem Obesity (633489466) Obesity, uns pecified (E66.9) 2023 Active confirmed Problem Tobacco user (854097438) Nicotine dependence, cigarettes, uncomplicated (F17.210) Active confirmed Problem Chronic pain syndrom e (640311114) Chronic pain syndrome (G89.4) 2023 Active confirmed Problem Lumbosacral spondylosis without myelopathy (disorder) (57942824) Spondylosis without myelopathy or radiculopathy, lumbosacral region (M47.817) 2023 Active confirmed Problem Degeneration of lumbar intervertebral disc (85937854) Other intervertebral disc degeneration, lumbar region (M51.36) 2023 Active confirmed Problem Abnormal gait (28159411) Unspecified abnormalities of gait and mobility (R26.9) 2023 Active confirmed Problem Solitary pulmonary nodule (377639412) Solitary pulmonary nodule (R91.1) Active confirmed Problem Obstructive sleep apnea syndrome (96075250) BEN (obstructive sleep apnea) (G47.33) Active confirmed Problem Degeneration of intervertebral disc of lumbar region with discogenic back pain (M51.360) Active confirmed Problem Tobacco user (472542832) Cigarette smoking (305.1) 2016 Active confirmed [id number]- Problem Amenorrhea (16412844) Amenorrhea (626.0) 2016 Active confirmed Michael-[id number]- Problem Hypertension (76340005) HTN (401.1) 2016 Active confirmed [id number]- Problem Bipolar affective disorder, currently manic, mild (342072341) Bipolar I disorder, most recent episode (or current) manic, mild (296.41) 2016 Problem resolved confirmed [id number]- Problem Morbid obesity (438447566) Morbid obesity (278.01) 2016 Problem resolved confirmed [id number]- Problem Posttraumatic stress disorder (74298550) Posttraumatic stress disorder (309.81) 2016 Problem resolved confirmed [id number]- Problem Acute bronchitis (47248888) Acute bronchitis (466.0) 2016 Problem resolved confirmed [id number]- Problem Reflux esophagitis (706284173) Reflux esophagitis (530.11) 2016 Problem resolved confirmed [id number]- Problem Gynecological examination normal (610002122057649) Routine gynecological examination (V72.31) 2017 Problem resolved confirmed Michael-[id number]- Problem Restless legs (06991171) Restless legs syndrome (RLS) (333.94) 2016 Problem resolved confirmed [facility]-[id number]- Problem Sleep apnea (93555358) Sleep apnea (780.57) 2016 Problem resolved confirmed Mich[facility]-[id number]- Problem Hypercholesterolemia (00349941) Hypercholesterolemia (272.0) 2016 Problem resolved confirmed [id number]- Problem Disorder of hematopoietic system (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) Other abnormal findings on blood examination (790.99) 2017 Problem resolved confirmed Michael-[id number]- Problem 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) 2016 Problem resolved confirmed Michael-[id number]- Problem Benign neoplasm of pituitary gland and craniopharyngeal duct (590619572) Benign pituitary tumor (227.3) 2016 Problem resolved confirmed [id number]- Problem Nausea and vomiting (47689367) Nausea and vomiting (787.01) 2016 Problem resolved confirmed [id number]- Problem Nausea (053994556) Nausea (787.02) 2017 Problem resolved confirmed [facility] [id number]- Problem Type II diabetes mellitus without complication (431886955) NIDDM (250.00) 2016 Problem resolved confirmed [facility] [id number]- Problem Depressed bipolar I disorder (27202881) Bipolar disorder with depression, NOS (296.50) 2016 Problem resolved confirmed [facility] 5911- Vital Signs Heart Rate 94 /min 03/16/2025 Temperature 98.0 degrees Fahrenheit 03/16/2025 Respiratory Rate 20 /min 03/16/2025 Blood pressure diastolic 76 mm Hg 03/16/2025 Oximetry 97 % 03/16/2025 Height-cm 177.8 cm 03/16/2025 Weight-kg 148.8 kg 03/16/2025 Height 70.00 in 03/16/2025 Blood pressure systolic 124 mm Hg 03/16/2025 Weight 328.04 lbs 03/16/2025 BMI 47.06 kg/m2 03/16/2025 Procedures Procedure Date Ordered Date Performed Result Body Sit e Facet Inj. / MBB Lumbar/Sacr al, 2 levels - 56221, 70384 08/31/2024 08/31/2024 N/A PFT with FRC: (NO TGV) 09/08/2024 N/A Facet Inj. / MBB Lumbar/Sacr al, 2 levels - 31504, 75431 10/07/2024 10/07/2024 N/A PFT with FRC: (NO TGV) 11/16/2024 11/16/2024 N/A Neurotomy Lumbar/Sacral, 2 o r more levels - 98877, 93427 01/11/2025 01/11/2025 N/A Neurotomy Lumbar/Sacral, 2 o r more levels - 75992, 43355 01/25/2025 01/25/2025 N/A Encounters Encounter Location Date Provider Diagnosis [facility] [address] [place] [address], [place] [address] 08/31/2024 Pardeep Anaya Spondylosis without myelopathy or radiculopathy, lumbosacral region M47.817 [facility] [address] [place] [address] [place] [address] 09/08/2024 Franko Salomon Shortness of breath R06.02 ; Solitary pulmonary nodule R91.1 ; Nicotine dependence, cigarettes, uncomplicated F17.210 ; Encounter for smoking cessation counseling Z71.6 and BEN (obstructive sleep apnea) G47.33 [facility] [address] [place] [address] 10/07/2024 Pardeep Anaya Spondylosis without myelopathy or radiculopathy, lumbosacral region M47.817 [facility] [address] [place] [address] 10/20/2024 Pardeep Jaclyn Chronic pain syndrom e G89.4 ; Degeneration of intervertebral disc of lumbar region with discogenic back pain M51.360 ; Spondylosis without myelopathy or radiculopathy, lumbosacral region M47.817 ; Right lateral epicondylitis M77.11 and Unspecified abnormalities of gait and mobility R26.9 [facility] [address] [place] [address] [place] [address] 10/28/2024 Franko Salomon Shortness of breath R06.02 ; Solitary pulmonary nodule R91.1 ; Nicotine dependence, cigarettes, uncomplicated F17.210 ; Encounter for smoking cessation counseling Z71.6 and BEN (obstructive sleep apnea) G47.33 [facility] [address] [place] [address] [place] [address] 11/16/2024 Franko Salomon SOB (shortness of breath) R06.02 [facility] [address] [place] [address] [place] [address] 11/16/2024 Franko Salomon Shortness of breath R06.02 ; Solitary pulmonary nodule R91.1 ; Nicotine dependence, cigarettes, uncomplicated F17.210 ; Encounter for smoking cessation counseling Z71.6 and BEN (obstructive sleep apnea) G47.33 [facility] [address] [place] [address] 01/11/2025 Pardeep Anaya Spondylosis without myelopathy or radiculopathy, lumbosacral region M47.817 [facility] [address] [place] [place] [address] 01/25/2025 Pardeep Anaya Spondylosis without myelopathy or radiculopathy, lumbosacral region M47.817 [facility] [address] [place] [address] 02/24/2025 Angela Moncada Chronic pain syndrom e G89.4 ; Degeneration of intervertebral disc of lumbar region with discogenic back pain M51.360 ; Spondylosis without myelopathy or radiculopathy, lumbosacral region M47.817 ; Right lateral epicondylitis M77.11 and Unspecified abnormalities of gait and mobility R26.9 [facility] [address] [place] [address] [place] [address] 03/16/2025 Franko Salomon Shortness of breath R06.02 ; Solitary pulmonary nodule R91.1 ; Nicotine dependence, cigarettes, uncomplicated F17.210 ; Encounter for smoking cessation counseling Z71.6 and BEN (obstructive sleep apnea) G47.33 [facility] [address] [place] [address] [place] [address] 08/17/2024 Franko Salomon [facility] [address] [place] [address] [place] [address] 10/26/2024 [facility] [address] [place] [address] [place] [address] 12/09/2024 [facility] [address] [place] [place] [address] 12/29/2024 Pardeep Anaya [facility] [address] [place] [address] [place] [address] 03/14/2025 [facility] [address] [place] [address] [place] [address] 03/16/2025 Franko Salomon Assessments Encounter Date Diagnosis (ICD Code) Assessment Notes Treatment Notes Treatment Clinical Notes Section Notes 08/31/2024 Spondylosis without myelopathy or radiculopathy, lumbosacral region (ICD-10 - M47.817) 09/08/2024 Shortness of breath (ICD-10 - R06.02) Obtain PFT 09/08/2024 Solitary pulmonary nodule (ICD-10 - R91.1) Patient states she had a previous scan in October 2023. I will request the imaging from [facility]. 10/07/2024 Spondylosis without myelopathy or radiculopathy, lumbosacral region (ICD-10 - M47.817) 10/20/2024 Chronic pain syndrome (ICD-10 - G89.4) I had a nice visit with the patient today regarding her chronic pain issues and the recent diagnostic LMBB. She reports greater than 80% reduction in her typical pain levels for the expected duration of the local anesthetics and even a bit beyond. Taking this into account, it would seem reasonable to do the ablation procedures. We will get these scheduled in the near future and see her accordingly thereafter. 10/28/2024 Shortness of breath (ICD-10 - R06.02) Obtain PFT 11/16/2024 SOB (shortness of breath) (ICD-10 - R06.02) 01/11/2025 Spondylosis without myelopathy or radiculopathy, lumbosacral region (ICD-10 - M47.817) 01/25/2025 Spondylosis without myelopathy or radiculopathy, lumbosacral region (ICD-10 - M47.817) 02/24/2025 Chronic pain syndrome (ICD-10 - G89.4) I had a nice discussion with the patient today regarding her chronic pain complaints. She continues with lower back pain as well as radicular symptoms and elbow pain. She status post bilateral lumbar rhizotomies which she reports helped relieve her pain greater than 75% and she is functioning much better overall. She is overall very happy with her results. She denies any changes in her health since we last seen her. She is not on any medications or clinic. She will return to clinic in 3 months to monitor for treatment effectiveness as well as to continue to discuss periodic use of interventional procedures as needed for acute exacerbation of pain. The patient continues with chronic pain requiring treatment to help restore function and improve quality of life. Patient is advised that best long-term goals include increased activity, core strengthening, proper weight management, coping strategies, avoidance of painful triggers, and targeted interventional therapy. We will see the patient for routine follow up in accordance with all clinic policies. We will continue to stress nonopioid treatment. 11/16/2024 Shortness of breath (ICD-10 - R06.02) Likely secondary to obesity with evidence of restriction on PFT 03/16/2025 Shortness of breath (ICD-10 - R06.02) Likely secondary to obesity with evidence of restriction on PFT 03/16/2025 Solitary pulmonary nodule (ICD-10 - R91.1) Stable from October 2023. Repeat chest CT in February 2026. If stable no further workup needed 02/24/2025 Degeneration of intervertebral disc of lumbar region with discogenic back pain (ICD-10 - M51.360) 11/16/2024 Solitary pulmonary nodule (ICD-10 - R91.1) Stable from October 2023. I did review her chest images from February 2024 showing persistent nodule measuring about 6 mm in the right lower lobe. Repeat chest CT in February 2025 10/28/2024 Solitary pulmonary nodule (ICD-10 - R91.1) Patient states she had a previous scan in October 2023. I will request the imaging from [facility]. 10/20/2024 Degeneration of intervertebral disc of lumbar region with discogenic back pain (ICD-10 - M51.360) 09/08/2024 Nicotine dependence, cigarettes, uncomplicated (ICD-10 - F17.210) Patient has smoked half a qwtq-tqu-ryb for 30 years. Smoking cessation emphasized. 09/08/2024 Encounter for smoking cessation counseling (ICD-10 - Z71.6) 10/28/2024 Nicotine dependence, cigarettes, uncomplicated (ICD-10 - F17.210) Patient has smoked half a izlm-bfg-uyi for 30 years. Smoking cessation emphasized. 10/20/2024 Spondylosis without myelopathy or radiculopathy, lumbosacral region (ICD-10 - M47.817) 02/24/2025 Spondylosis without myelopathy or radiculopathy, lumbosacral region (ICD-10 - M47.817) 11/16/2024 Nicotine dependence, cigarettes, uncomplicated (ICD-10 - F17.210) Patient has smoked half a [id number]-gmb for 30 years. Smoking cessation emphasized. 03/16/2025 Nicotine dependence, cigarettes, uncomplicated (ICD-10 - F17.210) Patient has smoked half a gjue-jbf-qfg for 32 years. Smoking cessation emphasized. 11/16/2024 Encounter for smoking cessation counseling (ICD-10 - Z71.6) 02/24/2025 Right lateral epicondylitis (ICD-10 - M77.11) 03/16/2025 Encounter for smoking cessation counseling (ICD-10 - Z71.6) 10/20/2024 Right lateral epicondylitis (ICD-10 - M77.11) 10/28/2024 Encounter for smoking cessation counseling (ICD-10 - Z71.6) 09/08/2024 BEN (obstructive sleep apnea) (ICD-10 - G47.33) Patient had a sleep study at [facility] and was placed on a CPAP. She will go to sleep wearing this and when she wakes up it is no longer on her face. I have suggested she try a different type of mask. Obtain compliance prior to next visit. DME: [facility] [place] 02/24/2025 Unspecified abnormalities of gait and mobility (ICD-10 - R26.9) 10/20/2024 Unspecified abnormalities of gait and mobility (ICD-10 - R26.9) 10/28/2024 BEN (obstructive sleep apnea) (ICD-10 - G47.33) Patient had a sleep study at [facility] and was placed on a CPAP. She will go to sleep wearing this and when she wakes up it is no longer on her face. I have suggested she try a different type of mask. Obtain compliance prior to next visit. DME: [facility] [place] 11/16/2024 BEN (obstructive sleep apnea) (ICD-10 - G47.33) Patient had a sleep study at [facility]. I emphasized the importance of CPAP use. Obtain compliance prior to next visit. DME: [facility] [place] 03/16/2025 BEN (obstructive sleep apnea) (ICD-10 - G47.33) I emphasized the importance of CPAP use. Obtain sleep study from [facility]. DME: [facility] [place] 09/08/2024 Other I, Argenis Foy, am scribing for, and in the presence of Dr. Franko Salomon. I, Dr. Franko Salomon, personally performed the services described in this documentation , as scribed by Argenis Foy in my presence, and it is both accurate and complete. 10/20/2024 Other I, LEONEL Moctezuma, am scribing for Dr. Pardeep Anaya. I, Dr. Pardeep Anaya, personally performed the services described in this documentation, as scribed by LEONEL Moctezuma , and it is both accurate and complete. 10/28/2024 Other Talia, Argenis Foy am scribing for, and in the presence of Dr. Franko Salomon. I, Dr. Franko Salomon, personally performed the services described in this documentation , as scribed by Argenis Foy in my presence, and it is both accurate and complete. 11/16/2024 Other Talia, Argenis Foy am scribing for, and in the presence of Dr. Franko Salomon. I, Dr. Franko Salomon, personally performed the services described in this documentation , as scribed by Argenis Foy in my presence, and it is both accurate and complete. 03/16/2025 Other Talia, Argenis Foy am scribing for, and in the presence of Dr. Franko Salomon. I, Dr. Franko Salomon, personally performed the services described in this documentation , as scribed by Argenis Foy in my presence, and it is both accurate and complete. Plan Of Treatment Pending Test Test Name Order Date PFT with FRC: (NO TGV) 09/08/2024 Future Test Test Name Order Date CT Chest w/o Contrast diagnostic-50081 1 Next Appt Details Provider Name:Pardeep Anaya, 06/01/2025 01:00:00 PM, [address] [place], [address], Provider Name:Franko Salomon, 03/22/2026 01:20:00 PM, [address] [place] [address] [address], [place], [address], Insurance Providers Payer Name Payer Address Payer Phone Subscriber Number Group Number Insured Name Patient Relationship to Insured Coverage Start Date Coverage End Date [employer] [place] [address] [place] [phone] [id number] JOSE J DIXON Self - patient is the insured Medical (General) History Medical History History ICD Code bladder infections epilepsy migraine diabetes blood transfusion back trouble hypertension bronchitis Surgical History Surgery Date(Month/Year) tubes in ears left knee surgery section Hospitalization History Reason Date(Month/Year) see surgical hx
--- OUTSIDE RECORDS SUMMARY | 2025-05-13 22:55 | XMS_ITS | Continuity of Care Document ---
Author Organization [facility] Erlin, L.LJaiden, [facility] ([facility]) Address [address] [place] [address] Care Team Providers Care Supervisor [place] Name Role Phone QUINTEN DONOHUE Primary Care Provider Unavailabl e Assessment No assessment recorded. Plan of Treatment Reminders Order Date Submit Date Provider Last Modified By Organization Details Last Modified Time Details Appointments None recorded. Lab None recorded. Referral None recorded. Procedures None recorded. Surgeries None recorded. Imaging None recorded. Medication Orders chlorthalid one 25 mg tablet 2024 025 [facility]/Pharmacy #[id number], [address] [facility] [address], [place], [address], 12:34:21 Patient TargetsNo targets recorded. Patient InstructionsNo instructions recorded. Reason for Referral None Reported. Results Created Date Observation Date Name Description Value Unit Range Abnormal Flag Note LastModifiedBy Organization Detail LastModifiedTime 03/21/2003/10/2025 colon oscop y proce dure (PROC ) No observ ation record ed. [email or web address] [facility] [address], [place], [address], 03/21/2025 14:54:05 Result Notes None recorded. Problems Name Problem SNOMED Code Status Onset Date Resolution Date Notes Provider Name and Address Organization Details Recorded Time Obstruct doc sleep apnea of adult 85065605369 03 Active 2022 KHUSHBU rojas [facility], LBlayneLJaiden 09:20:35 Nicotine dependen ce 35252249 Active 2022 KHUSHBU NITISH null, [facility], L.L.CBlayne 5 09:20:32 [facility] samantha 63159474 Active 2022 KHUSHBU NITISH null, [facility], L.L.CBlayne 5 09:20:18 Hypercho lesterol emia 14581173 Active 2022 KHUSHBU HAMICHELLE null, [facility], L.L.CBlayne 5 09:20:20 Bipolar disorder 79371437 Active 2022 KHUSHBU TALBERT null, [facility], LBlayneL.CBlayne 5 09:20:12 Restless legs syndrome 36467449 Active 2022 KHUSHBU rojas, [facility], CassiusL.CBlayne 5 09:20:38 Screenin g for malignan t neoplasm of colon Completed 202207/23/2024 Removal Reason: resolved KHUSHBU rojas, [facility], CassiusLBlayneCBlayne 5 09:20:47 Diabetes mellitus 61498763 [facility]ne 5 09:20:15 Hypokale david 71912717 Completed 202307/23/2024 Removal Reason: resolved KHUSHBU TALBERT null, [facility], LBlayneLBlayneCBlayne 5 09:20:29 Problem Notes None recorded. Procedures Surgical History Date Name Laterality Status Provider Name and Address Organization Details Recorded Time colonoscopy completed KHUSHBU TALBERT [facility], CassiusLBlayneCBlayne 03/15/2025 17:59:50 ligation of bilateral fallopian tubes completed KHUSHBU TABLERT [facility], LAlexia 02/13/2023 07:43:22 Imaging Results None recorded. Procedure Notes None recorded. Medical Equipment None Reported. Allergies Allergen ID Allergen Name Allergen Category Reaction Reaction Severity Criticality Documentation Date Start Date Code Code System Note Provider Name and Address Organization Details Recorded Time [facility]70 [facility] Not available Not available Not available 02/13/2023 09519 2 RxNorm KHUSHBU rojas, [place] - [facility], [place] 3 11:09:53 Medications Name Sig Start Date [...] Last Updated DateTime 177.8 cm 47.3 kg/m2 331557. 48 g 96 % 88 /min 20 /min 98 [degF] 122/70 mm[Hg] KHUSHBU TALBERT [facility], L.L.C. 11:47:29 Social History Question Answer Notes LastModified by ODIN Details LastModified Time Tobacco Smoking Status Current Every Day Smoker QUINTEN DONOHUE PA-C [address] [place] [address], [address], [facility] 02/13/2023 11:40:41 What Was The Date Of Your Most Recent Tobacco Screening? 02/13/2023 [email or web address] Information not available 02/13/2023 What Is Your Current Pack Years? 20-29packyea rs [email or web address] Information not available 02/13/2023 At What Age Did You Start Smoking Tobacco? 20 [email or web address] Information not available 02/13/2023 How Much Tobacco Do You Smoke? 0.5 PPD Information not available 02/13/2023 Has Tobacco Cessation Counseling Been Provided? Yes [email or web address] Information not available 02/13/2023 On What Date Was Tobacco Cessation Counseling Provided? 02/13/2023 [email or web address] Information not available 02/13/2023 Sex: Unknown Functional Status Question Answer Note LastModified by ODIN Details LastModified Time Do you use any illicit or recreational drugs? No [email or web address] Information not available 02/13/2023 Do you or have you ever used any other forms of tobacco or nicotine? No [email or web address] Information not available 02/13/2023 Mental Status None recorded. Family History Relationship Description Onset Age of this Age Resolved Age Notes LastModified by Organization Details LastModified Time Father Diabetes mellitus [email or web address] Not available 2022 11:31:09 Medical History Condition Response Hypertension Y Gynecological HistoryNo gynecological history recorded. Obstetrics History GPAL:G 0 P 0 0 0 0 Immunizations Vaccine Type Date Status Note Provider Nam e and Address Organization Details Recorded Time COVID-19, mRNA, LNP-S, PF, 100 mcg/0.5mL dose or 50 mcg/0.25mL dose 1 completed QUINTEN DONOHUE PA-C [address] [place], [address], [facility] 02/13/2023 11:24:33 COVID-19, mRNA, LNP-S, PF, 100 mcg/0.5mL dose or 50 mcg/0.25mL dose 1 completed QUINTEN DONOHUE PA-C [address] [place], [address], [facility] 02/13/2023 11:24:33 COVID-19, mRNA, LNP-S, PF, 100 mcg/0.5mL dose or 50 mcg/0.25mL dose 2 completed QUINTEN DONOHUE PA-C [address] [place], [address], [facility] 02/13/2023 11:24:33 Hep B, unspecified formulation 7 completed QUINTEN DONOHUE PA-C [address] [place], [address], [facility] 02/13/2023 11:24:33 Hep B, unspecified formulation 7 completed QUINTEN DONOHUE PA-C [address] [place], [address], [facility] 02/13/2023 11:24:33 Hep B, unspecified formulation 6 completed QUINTEN DONOHUE PA-C [address] [place], [address], [facility], LBlayneLBlayneC. 02/13/2023 11:24:33 MMR 4 completed Kesha rojas [facility], [place] 02/11/2024 14:11:16 COVID-19, mRNA, LNP-S, PF, elizabeth-sucrose, 30 mcg/0.3 mL 4 completed Kesha rojas [facility], [place] 02/11/2024 14:11:16 MMR 4 completed [facility] Available [facility] 02/24/2025 11:38:57 COVID-19, mRNA, LNP-S, PF, elizabeth-sucrose, 30 mcg/0.3 mL 4 completed Not Available [facility] 02/24/2025 11:38:57 Tdap 4 completed QUINTEN DONOHUE PA-C [address] [place], [address], [facility], CassiusLVernon. 06/17/2023 16:49:15 Past Encounters Encounter ID Performer Location Encounter Start Date Encounter Closed Date Diagnosis/Indication Diagnosis SNOMED-CT Code Diagnosis ICD10 Code Diagnosis IMO Codes Diagnosis Note [id number] Thony Eden DO [facility] ([facility]) [address] [place] [address] 01/27/2025 10:10:08 01/31/2025 13:47:11 Screening for malignant neoplasm of colon 674419893 Z12.11 I have reviewed and discussed colon cancer screening options, including colonoscop y. Discussed risks vs benefits including risk of infection and bleeding, perforatio n, possible need for surgery, reaction to medication s, and sever injury or . We discussed pt requiring sedation and possible general anesthesia . Pt agrees to proceed with [facility]osc[facility] y at [facility]. Preliminar y procedure date will be 03/10/25.C ounseled on Mounjaro, skipping the dose the prior to procedure. [id number] QUINTEN DONOHUE PA-C [facility] ([facility]) [address] [place] [address] 02/24/2025 11:38:37 02/24/2025 12:45:42 Edema of lower extremity 936186278 R60.0 37768 Health Concerns Section Related Observation LastModified by Organization Detai ls LastModified Time None Recorded Concern Status LastModified by Organization Details LastModified Time None Recorded Payers Encounter Date Sequence Insurance Name Policy Number Policy Bess Covered Member ID Bess Member ID Guarantor Name 02/24/2025 1 [id number]) [id number] Radha Boyer [id number] Radha Boyer Notes Date Note Type Note Provider Name and Address Organization Details Recorded Time 02/24/2025 text/html EdemaReported by PatientHPIFor quality, patient reportslegs [...] I take it when I need it QUINTEN DONOHUE PA-C [address] [place], [address], [facility] LStephanie. 02/24/2025 12:35:28 OBGyn Episode No OBEpisode recorded.
--- OUTSIDE RECORDS SUMMARY | 2025-05-13 22:56 | XMS_ITS | Clinical Summary ---
Author Organization Shweta Dinh [facility] Address [address] [place] [address] Phone Care Team Providers Care Floor Plan Adjuster Name Role Phone Unavailable Primary Care Provider [...] 5 Active fluticasone propionate (FLONASE) 50 mcg/spray Harleigh, Suspension nasal inhaler Administer 2 Sprays in each nostril daily. 16 Gram 11 Active Active Problems No known active problems Encounters Date Type Department Care Team Description 04/12/2025 External Device Data [facility] ABSTRACTION Provider, Abstract 04/12/2025 External Device Data [facility] ABSTRACTION Provider, Abstract 04/12/2025 External Device Data [facility] ABSTRACTION Provider, Abstract 03/23/2025 External Device Data [place] ABSTRACTION Provider, Abstract 03/23/2025 External Device Data [place] ABSTRACTION Provider, Abstract 03/01/2025 External Device Data [place] ABSTRACTION Provider, Abstract [...] on file Legal Sex Female 3:02 AM [employer] INSPECT[employer] Gender Identity Not on file Sexual Orientation Not on file Last Filed Vital Signs Vital Sign Reading Time Taken Comments Blood Pressure 126/82 12/21/2024 2:21 PM CDT Pulse 66 09/09/2024 2:03 PM CDT Temperature 36.2 C (97.1 F) 04/27/2024 5:20 PM [employer] INS[employer]OR Respiratory Rate 20 04/27/2024 7:00 PM [employer] INSPECTOR Oxygen Saturation 93% 09/09/2024 2:03 PM CDT [...] 5 years 2022 INFLUENZA VACCINE (#1) 2024 COVID-19 Vaccine (2 6 season) 2025 03/24/2024, 05/27/2023, 04/11/2022, Additional history exists DIABETES HBA1C Q 6 MONTHS 07/08/2025 01/05/2025 DTAP/TDAP/TD VACCINES (2 - T d or Tdap) 05/27/2033 05/27/2023, 03/15/2002 HEPATITIS B VACCINES Completed 09/27/1996, 09/27/1996, 06/18/1996, Additional history exists Insurance [facility] BLUE ACCESS/TRUE BLUE PPO
[2025-05-13 23:01] VITALS: BP 127/71; PULSE 92; RESP 18; TEMP 36.6; O2SAT 99; BMI 47.3
--- NOTE | 2025-05-13 23:10 | XRR_ITS ---
PROCEDURE INFORMATION: Exam: XR Chest Exam date and time: 05/14/2025 12:01 AM Age: 49 years old Clinical indication: Cough and shortness of breath; Cough with SOB; Additional info: Short of breath TECHNIQUE: Imaging protocol: Radiologic exam of the chest. Views: 1 view. COMPARISON: CR XR chest 2V* [id number] 09/17/2024 10:02 AM FINDINGS: Lungs: Airspace consolidation in the right lower lung, concerning for pneumonia. Pleural spaces: Unremarkable. No pleural effusion. No pneumothorax. Heart/Mediastinum: Cardiomegaly. Bones/joints: Unremarkable. XR/XR chest 1V portable [id number] IMPRESSION: Airspace consolidation in the right lower lung, concerning for pneumonia.
--- NOTE | 2025-05-13 23:56 | W.ED.URI ---
HPI - URI/Sore Throat General: Chief Complaint: Upper Respiratory Infection Stated Complaint: had cough for 5 days, fever,congestion,N/V Time Seen by Provider: 05/13/25 23:55 History of Present Illness: Patient is an adult female with a history of diabetes, hypertension, and COPD who presents with a five-day history of persistent cough that has progressed and become more persistent with green mucus production with now a documented fever tonight (100.7?F), which prompted her to take Tylenol and seek care. She has also experienced some vomiting, seemingly posttussive. She takes daily metformin and Mounjaro for DM, does not regularly check her sugars. Denies any chest pain, syncopal episodes, has not recently been on antibiotics or steroids. Associated symptoms: Reports fever(s); Deny abdominal pain, chills, chest pain, diarrhea or headache(s) Related Data Home Medications ?Medication ?Instructions ?Recorded ?Confirmed metoprolol tartrate 25 mg tablet 25 mg PO DAILY 10/02/23 07/30/24 potassium chloride 20 mEq 20 meq PO DAILY 12/10/23 07/30/24 tablet,extended release ranolazine 500 mg tablet,extended 500 mg PO BID 05/14/24 07/30/24 release,12 hr tirzepatide 10 mg/0.5 mL 10 mg SUBCUT Q7D 05/17/24 07/30/24 subcutaneous pen injector (Mounjaro) clonidine HCl 0.1 mg tablet See Rx Instructions .Route .COMPLEX 07/28/24 07/30/24 ropinirole 2 mg tablet 2 mg PO BID 07/28/24 07/30/24 simvastatin 20 mg tablet 20 mg PO DAILY 07/28/24 07/30/24 amitriptyline 50 mg tablet 50 mg PO DAILY 07/30/24 07/30/24 amlodipine 2.5 mg tablet (Norvasc) 2.5 mg PO DAILY 07/30/24 07/30/24 Previous Rx's ?Medication ?Instructions ?Recorded Auto Titrating CPAP set to 12-16 #1 ea 02/18/23 with supplies olopatadine 0.1 % eye drops 1 drp ophthalmic (eye) BID #5 mL 10/12/24 meclizine 50 mg tablet 50 mg PO DAILY PRN dizziness #30 02/23/25 tabs amoxicillin 875 mg-potassium 1 tab PO BID #14 tabs 05/14/25 clavulanate 125 mg tablet ondansetron 4 mg disintegrating 4 mg PO TID PRN nausea and 05/14/25 tablet vomiting 5 days #20 tabs Allergies Allergy/AdvReac Type Severity Reaction Status Date / Time chlorhexidine (From Allergy itchy Verified 05/13/25 23:06 Hibiclens) Review of Systems Const: Reports: fever(s) and body aches; Denies: chills Eyes: Denies: change in vision or eye discharge Card: Denies: chest pain, palpitations or swelling of feet/ankles Resp: Reports: dyspnea and productive cough GI: Denies: abdominal pain or diarrhea Musc: Denies: neck pain or back pain Skin/Breast: Denies: rash or jaundice Neuro: Denies: headache(s), numbness in extremities or weakness in extremities Santiago/Lymph: Denies: easy bruising or easy bleeding PFSH ED PFSH: Medical History (Updated 05/14/25 @ 00:38 by Froylan South DO) Opioid contract exists Obstructive sleep apnea History of sleep study Grief at loss of child Bipolar 2 disorder Nicotine dependence, cigarettes, with unspecified nicotine-induced disorders Migraine without aura and with status migrainosus, not intractable Essential (primary) hypertension Menopausal syndrome (hot flashes) GERD (gastroesophageal reflux disease) Acquired hypothyroidism Seizure disorder Surgical History History of surgical removal of skin lesion hx lesion removal from lip History of placement of ear tubes H/O section H/O knee surgery Family History Father Diabetes Hypertension CAD (coronary artery disease) Hyperlipidemia Heart disease Grandfather CAD (coronary artery disease) Sister Diabetes Thyroid disease Social History Smoking and tobacco/nicotine status: current every day tobacco/nicotine user (5 cigarettes daily) cigarettes Packs smoked per day: 1 Alcohol intake: never Substance/Drug Use: never Physical Exam Narrative: EXAM NARRATIVE: Obese, fatigued but overall well-appearing, afebrile here, no acute distress. Frequent coughing on exam, decreased breath sounds and mildly rhonchorous on the right, saturating in low 90s on room air, breathing comfortably, able to speak in full sentences without getting short of breath, no accessory muscle usage, no signs of respiratory distress. Normal sinus rhythm with no murmurs, no leg swelling. Abdomen soft, nontender nondistended. GCS 15, moving all 4 extremities symmetrically and spontaneously. Course Vital Signs: Vital signs: Vital Signs Temperature 97.9 F 05/13/25 23:01 Pulse Rate 90 05/14/25 00:53 Respiratory Rate 18 05/13/25 23:01 Blood Pressure 129/55 05/14/25 00:53 Pulse Oximetry 96 05/14/25 00:53 Oxygen Delivery Me thod Room Air 05/13/25 23:01 MDM - URI/Sore Throat Medical Decision Making -ddx: URI, pneumonia, sinus infection - Patient with seemingly subacute worsening of her cough, for spiked a fever and felt more fatigued today, chest x-ray concerning for a brewing right lower lobe pneumonia, has not recently been on antibiotics or steroids, does have intermediate risk for pneumonia due to obesity, diabetes, active smoking, COPD so we will place her on 7-day course of Augmentin and encouraged supportive care at home and to follow-up with PCP in a week's time for reevaluation, strict worsening return precautions given, patient stable and discharged home. Lab Data Radiology Impressions Chest X-Ray 05/13/25 23:10 IMPRESSION: Airspace consolidation in the right lower lung, concerning for pneumonia. Laboratory Results Influenza A (PCR) Negative (Negative) 05/14/25 00:01 Influenza Type B (PCR) Negative (Negative) 05/14/25 00:01 RSV (PCR) Negative (Negative) 05/14/25 00:01 SARS-CoV-2 (PCR) Negative (Negative) 05/14/25 00:01 All radiology interpretation(s) finalized by discharge Discharge Plan Discharge Patient Disposition: Home Clinical Impression: Pneumonia Condition: Stable Prescriptions: New amoxicillin-pot clavulanate 875-125 mg tablet 1 tab PO BID Qty: 14 0RF ondansetron 4 mg tablet,disintegrating 4 mg PO TID PRN (Reason: nausea and vomiting) 5 Days Qty: 20 0RF No Action potassium chloride 20 mEq tablet extended release 20 meq PO DAILY ranolazine 500 mg tablet extended release 12 hr 500 mg PO BID metoprolol tartrate 25 mg tablet 25 mg PO DAILY Mounjaro 10 mg/0.5 mL pen injector 10 mg SUBCUT Q7D amlodipine [Norvasc] 2.5 mg tablet 2.5 mg PO DAILY amitriptyline 50 mg tablet 50 mg PO DAILY (DME) Auto Titrating CPAP set to 12-16 with supplies See Rx Instructions .Route .MEDSUPPLY Qty: 1 0RF Rx Instructions: As directed meclizine 50 mg tablet 50 mg PO DAILY PRN (Reason: dizziness) Qty: 30 0RF ropinirole 2 mg tablet 2 mg PO BID clonidine HCl 0.1 mg tablet See Rx Instructions .ROUTE .COMPLEX Rx Instructions: TAKE 1 TABLET BY MOUTH EVERY DAY NEEDED FOR BLOOD PRESSURE GREATER THAN 180/110 simvastatin 20 mg tablet 20 mg PO DAILY olopatadine 0.1 % drops 1 drp ophthalmic (eye) BID Qty: 5 0RF Rx Instructions: separate doses by at least 6-8 hours Discharge Orders: Discharge ED (Routine); Ordered 05/14/25 Ordered By: Froylan South Referrals: Raina Bermeo PA [Primary Care Provider, Physicians Block Inspector] Discharge Diet: Usual diet Discharge Activity: Resume usual activity Patient Instructions: Opioid Safety, Pain Management, Patient Portal & [place] Instructions Activity Restrictions/Additional Instructions: You were seen for your cough and fevers, your evaluated with a viral swab and a chest x-ray which found you to have a right lower lobe pneumonia, because of your risk factors you will be treated with an intermediate dose antibiotic, for the treatment of this infection, take the Augmentin every 12 hours for total of 7 days, you can stop after day 5 if your symptoms are completely gone and you feel well. Use the Zofran, 4 mg every 8 hours as needed for nausea. Ensure you stay hydrated. Smoke less cigarettes during this time to better help the infection if possible. Follow-up with your primary care physician in a week's time for reevaluation after the infection has hopefully been treated. Return to the ED with severe worsening shortness of breath, fevers that do not respond to Tylenol, inability to eat or drink, severe chest pains, any other emergent concerns. Stand Alone Forms: Work/School Release Print Language: Arabic Coding Level of Care Code ED Machine Shop Specialist for Giovanny Altamirano
[2025-05-14 00:53] VITALS: BP 129/55; PULSE 90; O2SAT 96
[2025-05-14 01:00] LABS: Respiratory Syncytial Virus Ce NEGATIVE (Negative); SARS-CoV-2 PCR NEGATIVE (Negative)
== END 2025-05-14 00:54 | disposition home or self-care (01) ==
PROVIDERS: Physician Assistant; Emergency Provider Student in an Organized Health Care Education/Training Program; PCP Physician Assistant
DX: J18.9 Pneumonia, unspecified organism (principal); Z11.52 Encounter for screening for COVID-19; F17.210 Nicotine dependence, cigarettes, uncomplicated; I10 Essential (primary) hypertension
CPT/HCPCS: 71045; 87637; 99284; J9999